=== PATIENT | female | born 1960 | race African-American/Black ===

== ENCOUNTER 2016-07-28 21:11 | Emergency (ER) | payer MEDICARE, OTHER ==
[2016-07-28] MEDS ORDERED: ASPIRIN 81 MG TABLET, CHEWABLE PO ONE (21:14)
[2016-07-28 21:51] LABS: PROTHROMBIN TIME 12.6 SEC (11.4-15.4)
[2016-07-28 21:56] LABS: ABSOLUTE EOSINOPHILS # (AUTO) 0.1 10^3/uL (0.0-0.6); ABSOLUTE LYMPHOCYTES (AUTO) 1.4 10^3/uL (0.5-4.7); ABSOLUTE MONOCYTES (AUTO) 0.3 10^3/uL (0.1-1.4); ABSOLUTE NEUT (AUTO) 1.8 10^3/uL (1.7-8.2); BASOPHILS % (AUTO) 0.3 % (0-2); EOSINOPHILS % (AUTO) 1.7 % (0-6); HEMATOCRIT 39.6 % (36.0-47.0); HEMOGLOBIN 13.2 g/dL (12.0-15.5); LYMPHOCYTES % (AUTO) 39.3 % (13-45); MEAN CORPUSCULAR HEMOGLOBIN 26.3 pg (27.0-33.4); MEAN CORPUSCULAR HGB CONC 33.4 g/dL (32.0-36.0); MEAN CORPUSCULAR VOLUME 79 fl (80-97); MONOCYTES % (AUTO) 8.5 % (3-13); RED BLOOD COUNT 5.02 10^6/uL (3.72-5.28); RED CELL DISTRIBUTION WIDTH 14.4 % (11.5-14.0); SEGMENTED NEUTROPHILS % (AUTO) 50.2 % (42-78); WHITE BLOOD COUNT 3.6 10^3/uL (4.0-10.5)
[2016-07-28 22:10] LABS: ALANINE AMINOTRANSFERASE 34 U/L (9-52); ALBUMIN 3.8 g/dL (3.5-5.0); ALKALINE PHOSPHATASE 58 U/L (38-126); ANION GAP 11 (5-19); ASPARTATE AMINO TRANSFERASE 25 U/L (14-36); BILIRUBIN,TOTAL 0.5 mg/dL (0.2-1.3); BLOOD UREA NITROGEN 10 mg/dL (7-20); CALCIUM 9.4 mg/dL (8.4-10.2); CARBON DIOXIDE 26 mmol/L (22-30); CHLORIDE 101 mmol/L (98-107); CREATINE KINASE 70 U/L (30-135); CREATININE RESULT 0.74 mg/dL (0.52-1.25); GLUCOSE 177 mg/dL (75-110); POTASSIUM 4.2 mmol/L (3.6-5.0); SODIUM 137.8 mmol/L (137-145); TOTAL PROTEIN 7.3 g/dL (6.3-8.2)
[2016-07-28 22:22] LABS: CREATINE KINASE MB 0.43 ng/mL (<4.55); TROPONIN I < 0.012 ng/mL
[2016-07-28 22:41] LABS: FREE T3 4.21 pg/mL (2.77-5.27)
[2016-07-28 22:55] LABS: THYROID STIMULATING HORMONE 5.45 uIU/mL (0.47-4.68)
--- NOTE | 2016-07-28 23:59 | ER Document Report ---
ED Cardiac - General Chief Complaint: Palpitations Stated Complaint: POSSIBLE HEART PALPITATIONS Time seen by provider: 23:57 Mode of Arrival: Stretcher Information source: Patient TRAVEL OUTSIDE OF THE [place] IN LAST 30 DAYS: No - HPI Patient complains to provider of: Palpitations Was the onset of pain: Sudden Is the pain a: Chronic problem Chest pain location: Substernal Quality of pain: Dull Severity now: None Severity at worst: Mild Chest pain precipitating factors: At Rest Cardiac risk factors: Diabetes, Hypertension Positive cardiac history: Yes Associated symptoms: Shortness of breath Exacerbated by: Denies Relieved by: Nothing Similar symptoms previously: Yes Recently seen / treated by doctor: Yes Notes: Patient is a 56-year-old female with history of hypertension, diabetes, pulmonary emboli, currently on pelvic rest, atrial fibrillation sleep apnea, history of thyroidectomy approximately 8 months ago, who presents to the emergency room complaining of palpitations with shortness of breath and chest heaviness that occurred just prior to arrival, states it lasted 20-30 minutes and went away prior to arrival in the emergency room, she reports generalized weakness associated with these symptoms, she does report having a history of these symptoms previously but generally the resolve within a few minutes and do not return, she denies missing any of her medications today, and is being followed by local spring assembler, states she has a follow-up appointment on the next month - Related Data Allergies/Adverse Reactions: codeine Adverse Reaction (Unknown, Verified 07/28/16 21:55) PALPITATIONS diazepam [From Valium] Adverse Reaction (Unknown, Verified 07/28/16 21:55) PALPITATIONS oxycodone [From Percocet] Adverse Reaction (Unknown, Verified 07/28/16 21:55) PALPITATIONS Home Medications: Current Home Medications Apixaban [Eliquis] 5 mg PO BID 07/28/16 [History] Calcium Carbonate [Calcium] 600 mg PO DAILY 07/28/16 [History] Cholecalciferol (Vitamin D3) [Vitamin D3] 1,000 unit PO DAILY 07/28/16 [History] Diltiazem HCl [Cardizem Cd 180 mg Capsule] 180 mg PO BID 07/28/16 [History] Glipizide 5 mg PO DAILY 07/28/16 [History] Lisinopril [Prinivil] 20 mg PO DAILY 07/28/16 [History] Metformin HCl 500 mg PO QPM 07/28/16 [History] Past Medical History - General Information source: Patient - Social History Smoking Status: Never Smoker Family History: Hypertension, Malignancy, Other - Past Medical History Cardiac Medical History: Reports: Hx Atrial Fibrillation, Hx Hypercholesterolemia, Hx Hypertension, Hx Pulmonary Embolism - Recent and remote Denies: Hx Congestive Heart Failure, Hx Coronary Artery Disease, Hx Heart Attack Pulmonary Medical History: Denies: Hx Asthma, Hx Bronchitis, Hx COPD, Hx Pneumonia, Hx Tuberculosis Neurological Medical History: Denies: Hx Cerebrovascular Accident, Hx Seizures Endocrine Medical History: Reports: Hx Diabetes Mellitus Type 2 Musculoskeltal Medical History: Denies Hx Arthritis Psychiatric Medical History: Denies: Hx Depression Past Surgical History: Reports: Hx Thyroid Surgery, Hx Tubal Ligation - Immunizations Hx Diphtheria, Pertussis, Tetanus Vaccination: Yes Review of Systems - Review of Systems Constitutional: No symptoms reported EENT: No symptoms reported Cardiovascular: See HPI Respiratory: Short of breath Gastrointestinal: No symptoms reported Genitourinary: No symptoms reported Female Genitourinary: No symptoms reported Musculoskeletal: No symptoms reported Skin: No symptoms reported Hematologic/Lymphatic: No symptoms reported Neurological/Psychological: No symptoms reported -: Yes All other systems reviewed and negative Physical Exam - Vital signs Vitals: Resp Pulse Ox 12 100 07/28/16 21:20 07/28/16 21:20 Interpretation: Normal - General General appearance: Appears well, Alert - HEENT Head: Normocephalic, Atraumatic Eyes: Normal Pupils: PERRL - Respiratory Respiratory status: No respiratory distress Chest status: Nontender Breath sounds: Normal Chest palpation: Normal - Cardiovascular Rhythm: Regular Heart sounds: Normal auscultation Murmur: No - Abdominal Inspection: Morbidly Obese Distension: No distension Bowel sounds: Normal Tenderness: Nontender Organomegaly: No organomegaly - Back Back: Normal, Nontender - Extremities General upper extremity: Normal inspection, Nontender, Normal color, Normal ROM , Normal temperature General lower extremity: Normal inspection, Nontender, Normal color, Normal ROM , Normal temperature. No: Mark's sign - Neurological Neuro grossly intact: Yes Cognition: Normal Orientation: AAOx4 Adrián Coma Scale Eye Opening: Spontaneous [place] Coma Scale Verbal: Oriented Adrián Coma Scale Motor: Obeys Commands [place] Coma Scale Total: 15 Speech: Normal Motor strength normal: LUE, RUE, LLE, RLE Sensory: Normal - Psychological Associated symptoms: Normal affect, Normal mood - Skin Skin Temperature: Warm Skin Moisture: Dry Skin Color: Normal Course - Re-evaluation Re-evalutation: 07/28/16 23:57 Patient resting comfortably, reports feeling much better, able to ambulate without difficulty, lab and imaging findings discussed with her at bedside, symptoms likely related to paroxysmal atrial fibrillation, she was advised to call her spring assembler in the next 1-2 days or return if symptoms worsen, patient acknowledges understanding and agreement with this plan - Vital Signs Vital signs: Temp Pulse Resp BP Pulse Ox 14 131/71 H 100 07/28/16 23:01 07/28/16 23:01 07/28/16 23:01 - Laboratory Result Diagrams: 07/28/16 21:34 07/28/16 21:34 Laboratory results interpreted by me: 07/28/16 07/28/16 07/28/16 21:34 21:34 21:34 WBC 3.6 L MCV 79 L MCH 26.3 L RDW 14.4 H Plt Count 148 L Glucose 177 H TSH 5.45 H - Diagnostic Test Radiology reviewed: Image reviewed, Reports reviewed - EKG Interpretation by Me EKG shows normal: Sinus rhythm Rate: Normal Rhythm: NSR Heart block present: 1st Degree When compared to previous EKG there are: No significant change Discharge - Discharge Clinical Impression: Palpitations Condition: Stable Disposition: HOME, SELF-CARE Instructions: Palpitations (Irregular or Rapid Heartrate) ([facility]) Additional Instructions: Follow up with your primary care provider and your spring assembler in one to 2 days. Return to the emergency room immediately if symptoms worsen or any additional concerns.
[2016-07-29 00:25] VITALS: BP 129/67
--- NOTE | 2016-07-29 17:41 | EKG REPORT ---
SEVERITY:- ABNORMAL ECG - SINUS RHYTHM FIRST DEGREE AV BLOCK : Confirmed by: Lupe White MD 29-Jul-2016 17:40:45
== END 2016-07-29 00:15 | disposition home or self-care (01) ==
LOC: ER 21:11
DX: R00.2 Palpitations (principal); I10 Essential (primary) hypertension; E66.01 Morbid (severe) obesity due to excess calories; E11.9 Type 2 diabetes mellitus without complications; I48.91 Unspecified atrial fibrillation; E78.00 Pure hypercholesterolemia, unspecified; Z86.711 Personal history of pulmonary embolism; Z98.51 Tubal ligation status
CPT/HCPCS: 93005; 99285; 36415; 84439; 82553; 82550; 84443; 85025; 85610; 80053; 84484; 84481; 71010; 93010; A9270

== ENCOUNTER 2016-09-05 10:28 | Emergency (ER) | payer MEDICARE ==
[2016-09-05 10:37] VITALS: BP 150/80
--- NOTE | 2016-09-05 11:10 | ER Document Report ---
ED Medical Screen (RME) - General Chief Complaint: Abdominal Problem Stated Complaint: STOMACH PAIN Notes: This 56-year-old diabetic patient on a for prior pulmonary embolus complaints of bleeding from her umbilicus that started yesterday. She also complains of generalized body aches. She does have a history of A. fib. Quick exam showed a blood-tinged purulence discharge from deep in the umbilicus with no obvious bleeding source. This was swabbed for cultures and again it appeared to be blood tinged discharge with no bright red blood. I have greeted and performed a rapid initial assessment of this patient. A comprehensive ED assessment and evaluation of the patient, analysis of test results and completion of the medical decision making process will be conducted by additional ED providers. TRAVEL OUTSIDE OF THE [place] IN LAST 30 DAYS: No - Related Data Allergies/Adverse Reactions: codeine Adverse Reaction (Unknown, Verified 09/05/16 10:32) PALPITATIONS diazepam [From Valium] Adverse Reaction (Unknown, Verified 09/05/16 10:32) PALPITATIONS oxycodone [From Percocet] Adverse Reaction (Unknown, Verified 09/05/16 10:32) PALPITATIONS Past Medical History - Past Medical History Cardiac Medical History: Reports: Hx Atrial Fibrillation, Hx Hypercholesterolemia, Hx Hypertension, Hx Pulmonary Embolism - Recent and remote Denies: Hx Congestive Heart Failure, Hx Coronary Artery Disease, Hx Heart Attack Pulmonary Medical History: Denies: Hx Asthma, Hx Bronchitis, Hx COPD, Hx Pneumonia, Hx Tuberculosis Neurological Medical History: Denies: Hx Cerebrovascular Accident, Hx Seizures Endocrine Medical History: Reports: Hx Diabetes Mellitus Type 2 Renal/ Medical History: Denies: Hx Peritoneal Dialysis Musculoskeltal Medical History: Denies Hx Arthritis Psychiatric Medical History: Denies: Hx Depression Past Surgical History: Reports: Hx Thyroid Surgery, Hx Tubal Ligation - Immunizations Hx Diphtheria, Pertussis, Tetanus Vaccination: Yes Physical Exam - Vital signs Vitals: Temp Pulse Resp BP Pulse Ox 97.9 F 81 18 150/80 H 100 09/05/16 10:33 09/05/16 10:33 09/05/16 10:09/05/16 10:09/05/16 10:33 Course - Vital Signs Vital signs: Temp Pulse Resp BP Pulse Ox 97.9 F 81 18 150/80 H 100 09/05/16 10:33 09/05/16 10:33 09/05/16 10:33 09/05/16 10:33 09/05/16 10:33
[2016-09-05 11:30] LABS: ABSOLUTE MONOCYTES (AUTO) 0.2 10^3/uL (0.1-1.4); ABSOLUTE NEUT (AUTO) 1.4 10^3/uL (1.7-8.2); BASOPHILS % (AUTO) 0.5 % (0-2); EOSINOPHILS % (AUTO) 1.3 % (0-6); HEMATOCRIT 39.9 % (36.0-47.0); HEMOGLOBIN 13.1 g/dL (12.0-15.5); HGB HCT DIFFERENCE -0.6; LYMPHOCYTES % (AUTO) 36.5 % (13-45); MEAN CORPUSCULAR HEMOGLOBIN 25.9 pg (27.0-33.4); MEAN CORPUSCULAR HGB CONC 32.7 g/dL (32.0-36.0); MEAN CORPUSCULAR VOLUME 79 fl (80-97); MONOCYTES % (AUTO) 8.5 % (3-13); RED BLOOD COUNT 5.03 10^6/uL (3.72-5.28); RED CELL DISTRIBUTION WIDTH 14.7 % (11.5-14.0); SEGMENTED NEUTROPHILS % (AUTO) 53.2 % (42-78); WHITE BLOOD COUNT 2.7 10^3/uL (4.0-10.5)
[2016-09-05 11:52] LABS: ALANINE AMINOTRANSFERASE 28 U/L (9-52); ALBUMIN 3.7 g/dL (3.5-5.0); ALKALINE PHOSPHATASE 58 U/L (38-126); ANION GAP 12 (5-19); ASPARTATE AMINO TRANSFERASE 18 U/L (14-36); BILIRUBIN,DIRECT 0.2 mg/dL (0.0-0.4); BILIRUBIN,TOTAL 0.6 mg/dL (0.2-1.3); BLOOD UREA NITROGEN 11 mg/dL (7-20); CALCIUM 9.3 mg/dL (8.4-10.2); CARBON DIOXIDE 27 mmol/L (22-30); CHLORIDE 101 mmol/L (98-107); CREATININE RESULT 0.69 mg/dL (0.52-1.25); GLUCOSE 254 mg/dL (75-110); POTASSIUM 4.3 mmol/L (3.6-5.0); SODIUM 140.2 mmol/L (137-145); TOTAL PROTEIN 7.3 g/dL (6.3-8.2)
--- NOTE | 2016-09-05 12:16 | ER Document Report ---
ED General - General Chief Complaint: Abdominal Problem Stated Complaint: STOMACH PAIN Mode of Arrival: Ambulatory Information source: Patient TRAVEL OUTSIDE OF THE [place] IN LAST 30 DAYS: No - HPI Onset: Yesterday Onset/Duration: Gradual Quality of pain: Dull Severity: Mild Associated symptoms: Weakness Exacerbated by: Denies Relieved by: Denies Similar symptoms previously: No Recently seen / treated by doctor: Yes - PCP THIS AM, REFERED TO E.R. - Related Data Allergies/Adverse Reactions: codeine Adverse Reaction (Unknown, Verified 09/05/16 10:32) PALPITATIONS diazepam [From Valium] Adverse Reaction (Unknown, Verified 09/05/16 10:32) PALPITATIONS oxycodone [From Percocet] Adverse Reaction (Unknown, Verified 09/05/16 10:32) PALPITATIONS Past Medical History - General Information source: Patient - Social History Smoking Status: Never Smoker Chew tobacco use (# tins/day): No Frequency of alcohol use: None Drug Abuse: None Lives with: Family Family History: Hypertension, Malignancy, Other Patient has suicidal ideation: No Patient has homicidal ideation: No - Past Medical History Cardiac Medical History: Reports: Hx Atrial Fibrillation, Hx Hypercholesterolemia, Hx Hypertension, Hx Pulmonary Embolism - Recent and remote Denies: Hx Congestive Heart Failure, Hx Coronary Artery Disease, Hx Heart Attack Pulmonary Medical History: Denies: Hx Asthma, Hx Bronchitis, Hx COPD, Hx Pneumonia, Hx Tuberculosis Neurological Medical History: Denies: Hx Cerebrovascular Accident, Hx Seizures Endocrine Medical History: Reports: Hx Diabetes Mellitus Type 2 Renal/ Medical History: Denies: Hx Peritoneal Dialysis Musculoskeltal Medical History: Denies Hx Arthritis Psychiatric Medical History: Denies: Hx Depression Past Surgical History: Reports: Hx Thyroid Surgery, Hx Tubal Ligation - Immunizations Hx Diphtheria, Pertussis, Tetanus Vaccination: Yes Review of Systems - Review of Systems Constitutional: Chills, Weakness. denies: Fever EENT: No symptoms reported Cardiovascular: No symptoms reported Respiratory: No symptoms reported Gastrointestinal: No symptoms reported Genitourinary: No symptoms reported Female Genitourinary: No symptoms reported Musculoskeletal: No symptoms reported Skin: See HPI Neurological/Psychological: No symptoms reported Physical Exam - Vital signs Vitals: Temp Pulse Resp BP Pulse Ox 97.9 F 81 18 150/80 H 100 09/05/16 10:33 09/05/16 10:33 09/05/16 10:33 09/05/16 10:33 09/05/16 10:33 Interpretation: Hypertensive. No: Tachycardic, Tachypneic - General General appearance: Appears well, Alert In distress: None - HEENT Head: Normocephalic Eyes: Normal Conjunctiva: Normal Ears: Normal Nasal: Normal Mouth/Lips: Normal Mucous membranes: Normal Pharynx: Normal Neck: Normal - Respiratory Respiratory status: No respiratory distress Breath sounds: Normal - Cardiovascular Rhythm: Regular Heart sounds: Normal auscultation Murmur: Yes - Abdominal Inspection: Morbidly Obese Bowel sounds: Normal Notes: MILD EDEMA & DRAINAGE FROM UMBILICUS. CLEANED GENTLY W/ COTTON SWAB & GAUZE WICK INSERTED, PATIENT INSTRUCTED RE: SELF-CARE @ HOME. - Extremities General upper extremity: Normal inspection General lower extremity: Normal inspection - Neurological Neuro grossly intact: Yes Cognition: Normal Orientation: AAOx4 - Psychological Associated symptoms: Normal affect, Normal mood - Skin Skin Temperature: Warm Skin Moisture: Dry Skin Color: Normal Skin Turgor: Elastic Skin irregularity: other - SEE "ABDOMEN" ABOVE Course - Vital Signs Vital signs: Temp Pulse Resp BP Pulse Ox 97.9 F 81 18 150/80 H 100 09/05/16 10:33 09/05/16 10:33 09/05/16 10:33 09/05/16 10:33 09/05/16 10:33 - Laboratory Result Diagrams: 09/05/16 11:15 09/05/16 11:15 Laboratory results interpreted by me: 09/05/16 09/05/16 11:15 11:15 WBC 2.7 L MCV 79 L MCH 25.9 L RDW 14.7 H Absolute Neutrophils 1.4 L Glucose 254 H Discharge - Discharge Clinical Impression: Umbilical discharge, Diabetes mellitus type 2 in obese Type 2 diabetes mellitus with hyperglycemia Qualifiers: Diabetes mellitus longterm insulin use: without 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 TAKE ANTIBIOTIC DIRECTED. CONTINUE OTHER MEDS BEFORE. FOLLOW UP WITH YOUR PRIMARY CARE PROVIDER IN 2 DAYS (SATURDAY, SEPTEMBER 07). RETURN TO E.R. IF PROBLEMS.
[2016-09-05] MEDS ORDERED: INSULIN REG, HUMAN 100 UNIT/ML 3 ML VIAL (PYX) SUBCUT ONE (12:26)
== END 2016-09-05 12:50 | disposition home or self-care (01) ==
LOC: ER 10:28
DX: R10.9 Unspecified abdominal pain (principal); E11.65 Type 2 diabetes mellitus with hyperglycemia; E66.01 Morbid (severe) obesity due to excess calories; R53.1 Weakness; I48.91 Unspecified atrial fibrillation; E78.00 Pure hypercholesterolemia, unspecified; I10 Essential (primary) hypertension; Z86.711 Personal history of pulmonary embolism; Z88.6 Allergy status to analgesic agent; Z98.51 Tubal ligation status
CPT/HCPCS: 36415; 80053; 82962; 85025; 87070; 87075; 87077; 87205; 99284

== ENCOUNTER → 2016-09-12 | Outpatient (CLI) | payer MEDICARE | LOC: WI 12:00 | PROVIDERS: ATTEND Family Medicine | DX: Z12.31 Encounter for screening mammogram for malignant neoplasm of breast (principal) | CPT/HCPCS: 77067; G0202 ==

== ENCOUNTER 2017-02-20 18:30 | Emergency (ER) | payer MEDICARE ==
[2017-02-20] MEDS ORDERED: ASPIRIN 81 MG TABLET, CHEWABLE PO ONE (18:34)
[2017-02-20 19:02] LABS: ABSOLUTE LYMPHOCYTES (AUTO) 1.3 10^3/uL (0.5-4.7); ABSOLUTE MONOCYTES (AUTO) 0.3 10^3/uL (0.1-1.4); ABSOLUTE NEUT (AUTO) 1.5 10^3/uL (1.7-8.2); BASOPHILS % (AUTO) 0.4 % (0-2); EOSINOPHILS % (AUTO) 1.3 % (0-6); HEMATOCRIT 38.8 % (36.0-47.0); HEMOGLOBIN 13.3 g/dL (12.0-15.5); HGB HCT DIFFERENCE 1.1; LYMPHOCYTES % (AUTO) 41.9 % (13-45); MEAN CORPUSCULAR HGB CONC 34.3 g/dL (32.0-36.0); MEAN CORPUSCULAR VOLUME 79 fl (80-97); MONOCYTES % (AUTO) 8.5 % (3-13); RED BLOOD COUNT 4.93 10^6/uL (3.72-5.28); RED CELL DISTRIBUTION WIDTH 15.2 % (11.5-14.0); SEGMENTED NEUTROPHILS % (AUTO) 47.9 % (42-78); WHITE BLOOD COUNT 3.1 10^3/uL (4.0-10.5)
[2017-02-20 19:21] LABS: ALANINE AMINOTRANSFERASE 25 U/L (9-52); ALBUMIN 3.7 g/dL (3.5-5.0); ALKALINE PHOSPHATASE 61 U/L (38-126); ANION GAP 11 (5-19); ASPARTATE AMINO TRANSFERASE 20 U/L (14-36); BILIRUBIN,DIRECT 0.3 mg/dL (0.0-0.4); BILIRUBIN,TOTAL 0.5 mg/dL (0.2-1.3); BLOOD UREA NITROGEN 14 mg/dL (7-20); CARBON DIOXIDE 24 mmol/L (22-30); CHLORIDE 103 mmol/L (98-107); CREATINE KINASE 62 U/L (30-135); CREATININE RESULT 0.73 mg/dL (0.52-1.25); GLUCOSE 179 mg/dL (75-110); POTASSIUM 4.1 mmol/L (3.6-5.0); SODIUM 137.6 mmol/L (137-145); TOTAL PROTEIN 7.2 g/dL (6.3-8.2)
--- NOTE | 2017-02-20 19:24 | RADIOLOGY REPORT (SQ) ---
EXAM DESCRIPTION: CHEST SINGLE VIEW COMPLETED DATE/TIME: 02/20/2017 7:15 pm REASON FOR STUDY: cp COMPARISON: 07/28/2016 EXAM PARAMETERS: NUMBER OF VIEWS: One view. TECHNIQUE: Single frontal radiographic view of the chest acquired. RADIATION DOSE: NA LIMITATIONS: None. FINDINGS: LUNGS AND PLEURA: No opacities, masses or pneumothorax. No pleural effusion. MEDIASTINUM AND HILAR STRUCTURES: No masses. Contour normal. HEART AND VASCULAR STRUCTURES: Heart normal in size. Normal vasculature. BONES: No acute findings. HARDWARE: None in the chest. OTHER: No other significant finding. IMPRESSION: NO ACUTE RADIOGRAPHIC FINDING IN THE CHEST. TECHNICAL DOCUMENTATION: JOB ID: [id number]
[2017-02-20 19:34] LABS: TROPONIN I < 0.012 ng/mL
--- NOTE | 2017-02-20 19:39 | ER Document Report ---
ED General - General Chief Complaint: Chest Pain Stated Complaint: CHEST PAIN Time Seen by Provider: 02/20/17 18:39 Notes: Patient is a 56-year-old patient with a past medical history of morbid obesity, hypertension, diabetes, prior pulmonary embolus who presents with 2 days of intermittent left-sided chest pain. Does describe it as an intermittent left- sided chest pressure without radiation into her arms, jaw or back. Patient reports that she has had a history of similar symptoms many times over the last several years and did have a cardiac catheterization 2 years ago for this at which time it was noted to be normal without any disease requiring stent placement. She also apparently recently had a 24-hour Holter monitor due to the symptoms. This was apparently unrevealing. At time of my assessment she denies any ongoing pain. States that she received nitroglycerin from EMS and believes that this helped the pain go away. Nothing triggers or worsens the pain when present. Denies any associated vomiting, diaphoresis or dyspnea. States this does feel somewhat like when she had a pulmonary embolus in the past. She is currently been off of her Eliquis for the past 2 weeks due to running out of this medication. TRAVEL OUTSIDE OF THE [place] IN LAST 30 DAYS: No - Related Data Allergies/Adverse Reactions: codeine Adverse Reaction (Unknown, Verified 09/05/16 10:32) PALPITATIONS diazepam [From Valium] Adverse Reaction (Unknown, Verified 09/05/16 10:32) PALPITATIONS oxycodone [From Percocet] Adverse Reaction (Unknown, Verified 09/05/16 10:32) PALPITATIONS Past Medical History - General Information source: Patient - Social History Smoking Status: Never Smoker Frequency of alcohol use: None Drug Abuse: None Lives with: Spouse/Significant other Family History: Hypertension, Malignancy, Other - Past Medical History Cardiac Medical History: Reports: Hx Atrial Fibrillation, Hx Hypercholesterolemia, Hx Hypertension, Hx Pulmonary Embolism - Recent and remote Denies: Hx Congestive Heart Failure, Hx Coronary Artery Disease, Hx Heart Attack Pulmonary Medical History: Denies: Hx Asthma, Hx Bronchitis, Hx COPD, Hx Pneumonia, Hx Tuberculosis Neurological Medical History: Denies: Hx Cerebrovascular Accident, Hx Seizures Endocrine Medical History: Reports: Hx Diabetes Mellitus Type 2 Renal/ Medical History: Denies: Hx Peritoneal Dialysis Musculoskeltal Medical History: Denies Hx Arthritis Psychiatric Medical History: Denies: Hx Depression Past Surgical History: Reports: Hx Thyroid Surgery, Hx Tubal Ligation - Immunizations Hx Diphtheria, Pertussis, Tetanus Vaccination: Yes Review of Systems - Review of Systems Notes: Constitutional: Negative for fever. HENT: Negative for sore throat. Eyes: Negative for visual changes. Cardiovascular: Positive for chest pain. Respiratory: Negative for shortness of breath. Gastrointestinal: Negative for abdominal pain, vomiting or diarrhea. Genitourinary: Negative for dysuria. Musculoskeletal: Negative for back pain. Skin: Negative for rash. Neurological: Negative for headaches, weakness or numbness. 10 point ROS negative except as marked above and in HPI. Physical Exam - Vital signs Vitals: Temp Pulse Resp BP Pulse Ox 97.8 F 74 17 150/80 H 98 02/20/17 18:40 02/20/17 18:40 02/20/17 18:40 02/20/17 18:40 02/20/17 18:40 Interpretation: Hypertensive Notes: PHYSICAL EXAMINATION: GENERAL: Well-appearing, well-nourished and in no acute distress. HEAD: Atraumatic, normocephalic. EYES: Pupils equal round and reactive to light, extraocular movements intact, sclera anicteric, conjunctiva are normal. ENT: nares patent, oropharynx clear without exudates. Moist mucous membranes. NECK: Normal range of motion, supple without lymphadenopathy LUNGS: Breath sounds clear to auscultation bilaterally and equal. No wheezes rales or rhonchi. HEART: Regular rate and rhythm without murmurs ABDOMEN: Soft, nontender, normoactive bowel sounds. No guarding, no rebound. No masses appreciated. EXTREMITIES: Normal range of motion, no pitting or edema. No cyanosis. NEUROLOGICAL: No focal neurological deficits. Moves all extremities spontaneously and on command. PSYCH: Normal mood, normal affect. SKIN: Warm, Dry, normal turgor, no rashes or lesions noted. Course - Re-evaluation Re-evalutation: 02/20/17 19:39 Presentation of chest pain in an otherwise well appearing patient. Low clinical suspicion for ACS given clinical history, exam, EKG without ST elevations or depressions, and negative initial troponin. However, given patient's multiple risk factors, I do believe she requires serial troponin assay testing. I am also concerned the patient could have a pulmonary embolus as the etiology of her presentation today. She does have a prior history of a pulmonary embolus and is currently supposed to be on apixaban. Unfortunately, she ran out of this medication approximately 2 weeks ago so has not been anticoagulated for that period of time. Her d-dimer did come back elevated at 0.89. She will therefore require a CTA of the chest. CXR without evidence of pneumothorax or pneumonia. No widened mediastinum. Aortic dissection also seems unlikely given history, symmetric pulses, CXR, and vitals. HEART Score: History:0 EC Age:1 Risk Factors:2 Troponin:0 Total: 3 02/20/17 23:44 Second troponin remains normal. CT of the chest is normal without any evidence of an acute pulmonary embolus or dissection. Patient has remained chest pain- free. I discussed with patient that, based on their age, risk factors and emergency department testing today, the likelihood that their symptoms are related to a heart attack is very low (estimated risk of heart attack or over the next 30 days of less than 1%). The patient demonstrates decision making capacity and has verbalized an understanding of these risks to me. Based on this, the patient has chosen to follow-up as an outpatient. Usual chest pain return precautions reviewed. The patient states understanding and agreement with this plan. - Vital Signs Vital signs: Temp Pulse Resp BP Pulse Ox 98 F 74 10 L 152/81 H 100 02/21/17 01:04 02/20/17 18:40 02/21/17 01:04 02/21/17 01:06 02/21/17 01:04 - Laboratory Result Diagrams: 02/20/17 18:40 02/20/17 18:40 Laboratory results interpreted by me: 02/20/17 02/20/17 02/20/17 18:40 18:40 18:40 WBC 3.1 L MCV 79 L RDW 15.2 H Absolute Neutrophils 1.5 L D-Dimer 0.89 H Glucose 179 H - Diagnostic Test Radiology reviewed: Image reviewed, Reports reviewed Radiology results interpreted by me: 02/20/17 19:41 Chest x-ray: No acute infiltrate or pneumothorax - EKG Interpretation by Me Additional EKG results interpreted by me: 02/20/17 19:41 Normal sinus rhythm. Rate 73. No ST elevations or depressions. QTC is 410. Discharge - Discharge Clinical Impression: Chest pain Qualifiers: Chest pain type: unspecified Qualified Code(s): R07.9 - Chest pain, unspecified Condition: Good Disposition: HOME, SELF-CARE Additional Instructions: You were seen today for chest pain. The exact cause of your pain is unclear. However, based on your cardiac enzyme testing, chest x-ray, and EKG it does not appear that it is from an immediately life-threatening cause at this time. Although your testing here is normal is critical that you follow-up with your primary care physician for continued evaluation of this chest pain and possible stress testing. I recommended you see your physician within the next 24-48 hours to be evaluated for consideration of a stress test. Please return to emergency department immediately if you have worsening of your chest pain, shortness of breath, vomiting, become unable to exert yourself due to pain or difficulty breathing, you pass out, or have any pain that radiates into your arms, jaw, or back. Please also return if you have any additional symptoms that are concerning to you. Prescriptions: Apixaban [Eliquis] 5 mg PO Q12 #20 tablet Referrals: ANAI POWERS MD [Primary Care Provider] - Follow up as needed WILDER FOSTER MD [ACTIVE STAFF] - Follow up tomorrow
--- NOTE | 2017-02-20 21:32 | RADIOLOGY REPORT (SQ) ---
EXAM DESCRIPTION: CTA CHEST COMPLETED DATE/TIME: 02/20/2017 9:22 pm REASON FOR STUDY: eval pe COMPARISON: None. TECHNIQUE: CT scan of the chest performed using helical scanning technique with dynamic intravenous contrast injection. Images reviewed with lung, soft tissue and bone windows. Reconstructed coronal and sagittal MPR images reviewed. Additional 3 dimensional post-processing performed to develop Maximal Intensity Projection images (IN P). All images stored on PACS. All CT scanners at this facility use dose modulation, iterative reconstruction, and/or weight based d osing when appropriate to reduce radiation dose to as low as reasonably achievable (ALARA). [facility]: Dose Right [facility]: CareDose [facility]: Dose Right [facility]: Teradose 4D [facility]: Schedule Savvy CONTRAST TYPE AND DOSE: contrast/concentration: Isovue 370.00 mg/ml; Total Contrast Delivered: 80.0 ml; Total Saline Delivered: 50.0 ml Contrast bolus adequate for pulmonary arteries and aorta. RENAL FUNCTION: GFR > 60. RADIATION DOSE: Up-to-date CT equipment and radiation dose reduction techniques were employed. CTDIv ol: 46.9 - 50.8 mGy. DLP: 1817 mGy-cm. . LIMITATIONS: None. FINDINGS: LUNGS AND PLEURA: No masses, infiltrates, pneumothorax. No pleural effusions, calcificati ons. AORTA AND GREAT VESSELS: No aneurysm. Contrast bolus not optimized for the aorta. HEART: No pericardial effusion. No significant coronary artery calcifications. PULMONARY ARTERIES: No emboli visualized in the main pulmonary arteries or the segmental branches. HILAR AND MEDIASTINAL STRUCTURES: No identified masses or abnormal nodes. HARDWARE: None in the chest. UPPER ABDOMEN: Gallstones. THYROID AND OTHER SOFT TISSUES: No masses. No adenopathy. BONES: No acute or significant finding. 3D MIPS: Confirm above findings. OTHER: No other significant finding. IMPRESSION: NORMAL CTA OF THE CHEST. NO PULMONARY EMBOLI. Gallstones. COMMENT: Quality ID # [id number]: Final reports with documentation of one or more dose reduction techniques (e.g., Automated exposure control, adjustment of the mA and/or kV according to patient size, use of iterative reconstruction technique) TECHNICAL DOCUMENTATION: JOB ID: [id number] [employer]- All Rights Reserved
[2017-02-20] MEDS ORDERED: APIXABAN 5 MG TABLET PO ONE (23:45)
[2017-02-21 01:25] VITALS: BP 152/81
--- NOTE | 2017-02-21 07:29 | EKG REPORT ---
SEVERITY:- BORDERLINE ECG - SINUS RHYTHM PROBABLE LEFT ATRIAL ABNORMALITY BORDERLINE R WAVE PROGRESSION, ANTERIOR LEADS : Confirmed by: Aquiles Sosa MD 21-Feb-2017 07:27:05
== END 2017-02-21 01:25 | disposition home or self-care (01) ==
LOC: ER 18:30
DX: R07.9 Chest pain, unspecified (principal); E66.01 Morbid (severe) obesity due to excess calories; I10 Essential (primary) hypertension; E11.9 Type 2 diabetes mellitus without complications
CPT/HCPCS: 93005; 99285; 36415; 82553; 82550; 85025; 80053; 84484; 85379; 71010; 71275; 93010; A9270

== ENCOUNTER 2017-03-07 06:13 | Emergency (ER) | payer MEDICARE ==
[2017-03-07] MEDS ORDERED: ASPIRIN 81 MG TABLET, CHEWABLE PO ONE (06:16)
[2017-03-07 07:21] LABS: PROTHROMBIN TIME 13.4 SEC (11.4-15.4)
[2017-03-07 07:24] LABS: ABSOLUTE EOSINOPHILS # (AUTO) 0.1 10^3/uL (0.0-0.6); ABSOLUTE MONOCYTES (AUTO) 0.2 10^3/uL (0.1-1.4); ABSOLUTE NEUT (AUTO) 1.7 10^3/uL (1.7-8.2); BASOPHILS % (AUTO) 0.7 % (0-2); EOSINOPHILS % (AUTO) 2.1 % (0-6); HEMATOCRIT 38.9 % (36.0-47.0); HEMOGLOBIN 13.4 g/dL (12.0-15.5); HGB HCT DIFFERENCE 1.3; LYMPHOCYTES % (AUTO) 32.5 % (13-45); MEAN CORPUSCULAR HEMOGLOBIN 27.4 pg (27.0-33.4); MEAN CORPUSCULAR HGB CONC 34.4 g/dL (32.0-36.0); MEAN CORPUSCULAR VOLUME 79 fl (80-97); MONOCYTES % (AUTO) 7.7 % (3-13); RED BLOOD COUNT 4.89 10^6/uL (3.72-5.28); RED CELL DISTRIBUTION WIDTH 15.1 % (11.5-14.0)
--- NOTE | 2017-03-07 07:29 | RADIOLOGY REPORT (SQ) ---
EXAM DESCRIPTION: CHEST SINGLE VIEW CLINICAL HISTORY: 56 years, Female, palpitations COMPARISON: Chest radiograph February 20, 2017. NUMBER OF VIEWS: 1 TECHNIQUE: 18 portable AP chest radiograph technique. LIMITATIONS: None. FINDINGS: Cardiac size and pulmonary vasculature are normal. Lungs are clear. No pleural effusions or pneumothorax on this single view. Bones appear intact on this single view. IMPRESSION: Normal portable AP chest radiograph. 2010 [facility] [employer]- All Rights Reserved
[2017-03-07 07:35] LABS: ALANINE AMINOTRANSFERASE 40 U/L (9-52); ALBUMIN 3.7 g/dL (3.5-5.0); ALKALINE PHOSPHATASE 63 U/L (38-126); ANION GAP 11 (5-19); ASPARTATE AMINO TRANSFERASE 28 U/L (14-36); BILIRUBIN,DIRECT 0.4 mg/dL (0.0-0.4); BILIRUBIN,TOTAL 0.5 mg/dL (0.2-1.3); BLOOD UREA NITROGEN 15 mg/dL (7-20); CALCIUM 9.4 mg/dL (8.4-10.2); CARBON DIOXIDE 23 mmol/L (22-30); CHLORIDE 107 mmol/L (98-107); CREATINE KINASE 54 U/L (30-135); CREATININE RESULT 0.73 mg/dL (0.52-1.25); GLUCOSE 176 mg/dL (75-110); POTASSIUM 4.2 mmol/L (3.6-5.0); SODIUM 141.1 mmol/L (137-145); TOTAL PROTEIN 7.3 g/dL (6.3-8.2)
[2017-03-07 07:44] LABS: CREATINE KINASE MB 0.52 ng/mL (<4.55)
[2017-03-07 07:48] LABS: TROPONIN I < 0.012 ng/mL
--- NOTE | 2017-03-07 08:07 | ER Document Report ---
ED Cardiac - General Chief Complaint: Palpitations Stated Complaint: SHORTNESS OF BREATH Time Seen by Provider: 03/07/17 07:42 Mode of Arrival: Medic Information source: Patient Notes: Patient is a 56-year-old female who presents to the ER today for heart palpitations and shortness of breath that woke her up from sleep today around 5: 30 AM. Patient has a history of atrial fibrillation and is on blood thinners, Eliquis for this. Patient states that she recently had to come to the emergency department because of this and had her medicine changed by her certified medicine aide. Patient has a cardiology appointment this afternoon in [place]. Patient denies any symptoms at this time or since she has arrived at the emergency department. She denied that she ever had chest pain. TRAVEL OUTSIDE OF THE [place] IN LAST 30 DAYS: No - Related Data Allergies/Adverse Reactions: codeine Adverse Reaction (Unknown, Verified 09/05/16 10:32) PALPITATIONS diazepam [From Valium] Adverse Reaction (Unknown, Verified 09/05/16 10:32) PALPITATIONS oxycodone [From Percocet] Adverse Reaction (Unknown, Verified 09/05/16 10:32) PALPITATIONS Past Medical History - General Information source: Patient - Social History Smoking Status: Unknown if Ever Smoked Family History: Hypertension, Malignancy, Other - Past Medical History Cardiac Medical History: Reports: Hx Atrial Fibrillation, Hx Hypercholesterolemia, Hx Hypertension, Hx Pulmonary Embolism - Recent and remote Denies: Hx Congestive Heart Failure, Hx Coronary Artery Disease, Hx Heart Attack Pulmonary Medical History: Denies: Hx Asthma, Hx Bronchitis, Hx COPD, Hx Pneumonia, Hx Tuberculosis Neurological Medical History: Denies: Hx Cerebrovascular Accident, Hx Seizures Endocrine Medical History: Reports: Hx Diabetes Mellitus Type 2 Renal/ Medical History: Denies: Hx Peritoneal Dialysis Musculoskeltal Medical History: Denies Hx Arthritis Psychiatric Medical History: Denies: Hx Depression Past Surgical History: Reports: Hx Thyroid Surgery, Hx Tubal Ligation - Immunizations Hx Diphtheria, Pertussis, Tetanus Vaccination: Yes Review of Systems - Review of Systems Constitutional: No symptoms reported EENT: No symptoms reported Cardiovascular: See HPI Respiratory: No symptoms reported Gastrointestinal: No symptoms reported Genitourinary: No symptoms reported Female Genitourinary: No symptoms reported Musculoskeletal: No symptoms reported Skin: No symptoms reported Hematologic/Lymphatic: No symptoms reported Neurological/Psychological: No symptoms reported Physical Exam - Vital signs Vitals: Temp Pulse Ox 98.1 F 98 03/07/17 06:27 03/07/17 06:27 - Notes Notes: PHYSICAL EXAMINATION: GENERAL: Well-appearing and in no acute distress. HEAD: Atraumatic, normocephalic. EYES: Pupils equal round and reactive to light, extraocular movements intact, sclera anicteric, conjunctiva are normal. NECK: Normal range of motion, supple without lymphadenopathy LUNGS: CTAB and equal. No wheezes rales or rhonchi. HEART: Regular rate and rhythm without murmurs EXTREMITIES: Normal range of motion, no pitting edema. No cyanosis. NEUROLOGICAL: Cranial nerves grossly intact. Normal sensory/motor exams. PSYCH: Normal mood, normal affect. SKIN: Warm, Dry, normal turgor, no rashes or lesions noted Course - Re-evaluation Re-evalutation: 03/07/17 Cardiac enzymes are normal today, chest x-ray reveals no acute pathology. color television console monitor has been on the entire time in the emergency department, rhythm strip from that has been reviewed entirely and she has not skipped any beats, had any arrhythmias here in the emergency department. Patient to follow-up with her certified medicine aide this afternoon at her scheduled appointment. I have low suspicion for pulmonary embolism as patient is not tachycardic or hypoxic, never having any chest pain. - Vital Signs Vital signs: Temp Pulse Resp BP Pulse Ox 98.1 F 17 136/90 H 100 03/07/17 06:27 03/07/17 08:01 03/07/17 08:01 03/07/17 08:00 - Laboratory Result Diagrams: 03/07/17 06:35 03/07/17 06:35 Laboratory results interpreted by me: 03/07/17 03/07/17 06:35 06:35 WBC 3.0 L MCV 79 L RDW 15.1 H Plt Count 135 L Glucose 176 H Discharge - Discharge Clinical Impression: Palpitations, History of atrial fibrillation Condition: Stable Disposition: HOME, SELF-CARE Additional Instructions: Return immediately for any new or worsening symptoms. Follow up with certified medicine aide, keep your appointment this afternoon. Referrals: MAKSIM CHENG MD [Primary Care Provider] - Follow up as needed
[2017-03-07 08:10] VITALS: BP 136/90
--- NOTE | 2017-03-07 09:14 | EKG REPORT ---
SEVERITY:- BORDERLINE ECG - SINUS RHYTHM PROBABLE LEFT ATRIAL ABNORMALITY : Confirmed by: Lupe White MD 07-Mar-2017 09:13:44
== END 2017-03-07 08:17 | disposition home or self-care (01) ==
LOC: ER 06:13
DX: R00.2 Palpitations (principal); I48.91 Unspecified atrial fibrillation; R06.02 Shortness of breath; E78.00 Pure hypercholesterolemia, unspecified; I10 Essential (primary) hypertension; E11.9 Type 2 diabetes mellitus without complications; Z86.711 Personal history of pulmonary embolism; Z79.02 Long term (current) use of antithrombotics/antiplatelets; Z98.51 Tubal ligation status
CPT/HCPCS: 93005; 99285; 36415; 82553; 82550; 85025; 85610; 85730; 80053; 84484; 83880; 71010; 93010; A9270

== ENCOUNTER 2017-03-27 07:32 | Emergency (ER) | payer MEDICARE ==
[2017-03-27] MEDS ORDERED: NORMAL SALINE 500 ML IV ONE ×2 (07:49→10:54)
[2017-03-27] MEDS ORDERED: MECLIZINE HCL 25 MG TABLET PO ONE (07:49)
--- NOTE | 2017-03-27 08:01 | ER Document Report ---
ED General - General Chief Complaint: Dizziness Stated Complaint: DIZZINESS Time Seen by Provider: 03/27/17 07:38 TRAVEL OUTSIDE OF THE U.[place] IN LAST 30 DAYS: No - HPI Patient complains to provider of: Dizziness Notes: Patient coming in complaining of dizziness today. Patient states dizziness is worse whenever she sits up. Patient states similar episodes in the past was given a medication and dizziness resolved. Patient has a history of atrial fibrillation as well. States compliance with her medications. Denies any headaches fevers chills nausea vomiting diarrhea denies any chest pain or abdominal pain. Patient upon arrival upon EMS was able to ambulate to the bathroom by herself and back to the stretcher. Without any assistance. Patient otherwise looks well no signs of obvious distress. - Related Data Allergies/Adverse Reactions: codeine Adverse Reaction (Unknown, Verified 09/05/16 10:32) PALPITATIONS diazepam [From Valium] Adverse Reaction (Unknown, Verified 09/05/16 10:32) PALPITATIONS oxycodone [From Percocet] Adverse Reaction (Unknown, Verified 09/05/16 10:32) PALPITATIONS Home Medications: Current Home Medications Diltiazem HCl [Cartia Xt] 180 mg PO BID 03/27/17 [History] Metformin HCl 500 mg PO DAILY 03/27/17 [History] Sotalol HCl [Sotalol Af] 120 mg PO BID 03/27/17 [History] Past Medical History - Social History Smoking Status: Unknown if Ever Smoked Family History: Hypertension, Malignancy, Other - Past Medical History Cardiac Medical History: Reports: Hx Atrial Fibrillation, Hx Hypercholesterolemia, Hx Hypertension, Hx Pulmonary Embolism - Recent and remote Denies: Hx Congestive Heart Failure, Hx Coronary Artery Disease, Hx Heart Attack Pulmonary Medical History: Denies: Hx Asthma, Hx Bronchitis, Hx COPD, Hx Pneumonia, Hx Tuberculosis Neurological Medical History: Denies: Hx Cerebrovascular Accident, Hx Seizures Endocrine Medical History: Reports: Hx Diabetes Mellitus Type 2 Renal/ Medical History: Denies: Hx Peritoneal Dialysis Musculoskeltal Medical History: Denies Hx Arthritis Psychiatric Medical History: Denies: Hx Depression Past Surgical History: Reports: Hx Thyroid Surgery, Hx Tubal Ligation - Immunizations Hx Diphtheria, Pertussis, Tetanus Vaccination: Yes Review of Systems - Review of Systems Constitutional: No symptoms reported EENT: No symptoms reported Cardiovascular: No symptoms reported Respiratory: No symptoms reported Gastrointestinal: No symptoms reported Genitourinary: No symptoms reported Female Genitourinary: No symptoms reported Musculoskeletal: No symptoms reported Skin: No symptoms reported Hematologic/Lymphatic: No symptoms reported Neurological/Psychological: Other - dizziness -: Yes All other systems reviewed and negative Physical Exam - Vital signs Vitals: Resp Pulse Ox 11 L 100 03/27/17 07:45 03/27/17 07:45 Interpretation: Normal - General General appearance: Appears well, Alert - HEENT Head: Normocephalic, Atraumatic Eyes: Normal Pupils: PERRL - Respiratory Respiratory status: No respiratory distress Chest status: Nontender Breath sounds: Normal Chest palpation: Normal - Cardiovascular Rhythm: Irregularly irregular Heart sounds: Normal auscultation Murmur: No - Abdominal Inspection: Morbidly Obese Distension: No distension Bowel sounds: Normal Tenderness: Nontender Organomegaly: No organomegaly - Back Back: Normal, Nontender - Extremities General upper extremity: Normal inspection, Nontender, Normal color, Normal ROM , Normal temperature General lower extremity: Normal inspection, Nontender, Normal color, Normal ROM , Normal temperature, Normal weight bearing. No: Mark's sign - Neurological Neuro grossly intact: Yes Cognition: Normal Orientation: AAOx4 Adrián Coma Scale Eye Opening: Spontaneous Adrián Coma Scale Verbal: Oriented Adrián Coma Scale Motor: Obeys Commands Adrián Coma Scale Total: 15 Speech: Normal Motor strength normal: LUE, RUE, LLE, RLE Sensory: Normal - Psychological Associated symptoms: Normal affect, Normal mood - Skin Skin Temperature: Warm Skin Moisture: Dry Skin Color: Normal Course - Re-evaluation Re-evalutation: 03/27/17 08:00 Patient otherwise has no acute findings on physical examination. We will check basic laboratory studies 03/27/17 13:24 Laboratory studies on shows signs of urinary tract infection. Otherwise patient feeling better after medications. Will be given a dose of Rocephin and sent home with Keflex discharge home. - Vital Signs Vital signs: Temp Pulse Resp BP Pulse Ox 97.7 F 57 L 18 175/70 H 100 03/27/17 12:55 03/27/17 12:55 03/27/17 12:55 03/27/17 12:55 03/27/17 12:55 - Laboratory Result Diagrams: 03/27/17 07:48 03/27/17 07:48 Laboratory results interpreted by me: 03/27/17 03/27/17 03/27/17 07:48 07:48 07:48 WBC 3.4 L RDW 14.7 H Absolute Neutrophils 1.6 L Glucose 155 H Urine Blood SMALL H Ur Leukocyte Esterase MODERATE H Discharge - Discharge Clinical Impression: Dizziness UTI (urinary tract infection) Qualifiers: Urinary tract infection type: site unspecified Hematuria presence: without hematuria Qualified Code(s): N39.0 - Urinary tract infection, site not specified Condition: Good Disposition: HOME, SELF-CARE Instructions: Cephalexin ([facility]), Dizziness ([facility]), Meclizine ([facility]), Urinary Tract Infection ([facility]) Additional Instructions: Please take medication as prescribed. Return to the ER if symptoms worsen. Follow-up with your primary care physician. Prescriptions: Cephalexin Monohydrate [Keflex 500 mg Capsule] 500 mg PO QID 7 Days #20 capsule Meclizine HCl [Antivert 25 mg Tablet] 25 mg PO TID PRN #21 tablet PRN Reason: Referrals: MAKSIM CHENG MD [Primary Care Provider] - Follow up as needed
[2017-03-27 08:10] LABS: ABSOLUTE EOSINOPHILS # (AUTO) 0.1 10^3/uL (0.0-0.6); ABSOLUTE LYMPHOCYTES (AUTO) 1.4 10^3/uL (0.5-4.7); ABSOLUTE MONOCYTES (AUTO) 0.3 10^3/uL (0.1-1.4); ABSOLUTE NEUT (AUTO) 1.6 10^3/uL (1.7-8.2); BASOPHILS % (AUTO) 0.8 % (0-2); EOSINOPHILS % (AUTO) 2.2 % (0-6); HEMATOCRIT 40.7 % (36.0-47.0); HEMOGLOBIN 13.8 g/dL (12.0-15.5); HGB HCT DIFFERENCE 0.7; LYMPHOCYTES % (AUTO) 41.2 % (13-45); MEAN CORPUSCULAR HEMOGLOBIN 27.1 pg (27.0-33.4); MEAN CORPUSCULAR VOLUME 80 fl (80-97); MONOCYTES % (AUTO) 8.2 % (3-13); RED CELL DISTRIBUTION WIDTH 14.7 % (11.5-14.0); SEGMENTED NEUTROPHILS % (AUTO) 47.6 % (42-78); WHITE BLOOD COUNT 3.4 10^3/uL (4.0-10.5)
[2017-03-27 08:15] LABS: APPEARANCE,URINE SLIGHTLY-CLOUDY; BILIRUBIN,URINE NEGATIVE (NEGATIVE); GLUCOSE, URINE NEGATIVE (NEGATIVE); KETONES,URINE NEGATIVE (NEGATIVE); LEUKOCYTE ESTERASE,URINE MODERATE (NEGATIVE); NITRITE,URINE NEGATIVE (NEGATIVE); PROTEIN,URINE NEGATIVE (NEGATIVE); URINE SPECIFIC GRAVITY 1.012; UROBILINOGEN,URINE NEGATIVE mg/dL (<2.0)
[2017-03-27 08:25] LABS: ANION GAP 10 (5-19); BLOOD UREA NITROGEN 11 mg/dL (7-20); CARBON DIOXIDE 28 mmol/L (22-30); CHLORIDE 105 mmol/L (98-107); CREATININE RESULT 0.78 mg/dL (0.52-1.25); GLUCOSE 155 mg/dL (75-110); MAGNESIUM 1.8 mg/dL (1.6-2.3); POTASSIUM 4.2 mmol/L (3.6-5.0); SODIUM 143.3 mmol/L (137-145)
--- NOTE | 2017-03-27 10:08 | RADIOLOGY REPORT (SQ) ---
EXAM DESCRIPTION: CT HEAD WITHOUT COMPLETED DATE/TIME: 03/27/2017 9:53 am REASON FOR STUDY: dizziness on eliquis COMPARISON: None. TECHNIQUE: Axial images acquired through the brain without intravenous contrast. Images reviewed wi th bone, brain and subdural windows. Images stored on PACS. All CT scanners at this facility use dose modulation, iterative reconstruction, and/or weight based d osing when appropriate to reduce radiation dose to as low as reasonably achievable (ALARA). [facility]: Dose Right [facility]: CareDose [facility]: Dose Right [facility]: Teradose 4D [facility]: Smart [employer] RADIATION DOSE: Up-to-date CT equipment and radiation dose reduction techniques were employed. CTDIv ol: 64.6 mGy. DLP: 1163 mGy-cm. mGy. LIMITATIONS: None. FINDINGS: VENTRICLES: Normal size and contour. CEREBRUM: No masses. No hemorrhage. No midline shift. No evidence for acute infarction. Normal gra y/white matter differentiation. No areas of low density in the white matter. CEREBELLUM: No masses. No hemorrhage. No alteration of density. No evidence for acute infarction. EXTRAAXIAL SPACES: No fluid collections. No masses. ORBITS AND GLOBE: No intra- or extraconal masses. Normal contour of globe without masses. CALVARIUM: No fracture. PARANASAL SINUSES: No fluid or mucosal thickening. SOFT TISSUES: No mass or hematoma. OTHER: No other significant finding. IMPRESSION: NORMAL BRAIN CT WITHOUT CONTRAST. EVIDENCE OF ACUTE STROKE: NO. COMMENT: Quality ID # [id number]: Final reports with documentation of one or more dose reduction techniques (e.g., Automated exposure control, adjustment of the mA and/or kV according to patient size, use of iterative reconstruction technique) TECHNICAL DOCUMENTATION: JOB ID: [id number]- All Rights Reserved
[2017-03-27] MEDS ORDERED: CEFTRIAXONE 1 GM/D5W RTU 1 GM/50 ML RTUPB IV ONE (10:54)
[2017-03-27] MEDS ORDERED: PROCHLORPERAZINE EDISYLATE INJ 10 MG/2 ML VIAL IV ONE (10:54)
[2017-03-27 12:56] VITALS: BP 175/70
--- NOTE | 2017-03-27 23:14 | EKG REPORT ---
SEVERITY:- BORDERLINE ECG - SINUS RHYTHM BORDERLINE R WAVE PROGRESSION, ANTERIOR LEADS : Confirmed by: Roger Willams 27-Mar-2017 23:14:27
== END 2017-03-27 12:57 | disposition home or self-care (01) ==
LOC: ER 07:32
DX: R42 Dizziness and giddiness (principal); N39.0 Urinary tract infection, site not specified; I48.91 Unspecified atrial fibrillation; E78.00 Pure hypercholesterolemia, unspecified; I10 Essential (primary) hypertension; E11.9 Type 2 diabetes mellitus without complications; Z88.6 Allergy status to analgesic agent; Z98.51 Tubal ligation status
CPT/HCPCS: 93005; 99285; 96361; 96375; 96365; 36415; 87086; 83735; 85025; 80048; 81001; 84484; 70450; 93010; A9270; J0780; J7040; J0696

== ENCOUNTER 2017-05-11 06:31 | Emergency (ER) | payer MEDICARE ==
[2017-05-11] MEDS ORDERED: ASPIRIN 81 MG TABLET, CHEWABLE PO ONE (06:38)
[2017-05-11] MEDS ORDERED: FUROSEMIDE INJ/PF 20 MG/2 ML SDV IV ONE (06:39)
[2017-05-11] MEDS ORDERED: METOPROLOL SUCCINATE 50 MG TAB.SR.24H PO ONE (06:43)
--- NOTE | 2017-05-11 06:49 | ER Document Report ---
ED Respiratory Problem - General Chief Complaint: Shortness Of Breath Stated Complaint: HEART RACING Time Seen by Provider: 05/11/17 06:37 TRAVEL OUTSIDE OF THE [place] IN LAST 30 DAYS: No - HPI Notes: 56 years old female presents today with nearly 2 day history of on and off rapid heartbeat and slow heartbeat. With a history of atrial fibrillation. Denies any chest pain denies any left arm numbness tingling sensation denies any nausea or vomiting. Denies any fever chills or other constitutional symptoms. - Related Data Allergies/Adverse Reactions: codeine Adverse Reaction (Unknown, Verified 09/05/16 10:32) PALPITATIONS diazepam [From Valium] Adverse Reaction (Unknown, Verified 09/05/16 10:32) PALPITATIONS oxycodone [From Percocet] Adverse Reaction (Unknown, Verified 09/05/16 10:32) PALPITATIONS Past Medical History - General Information source: Patient - Social History Smoking Status: Never Smoker Family History: Hypertension, Malignancy, Other - Past Medical History Cardiac Medical History: Reports: Hx Atrial Fibrillation, Hx Hypercholesterolemia, Hx Hypertension, Hx Pulmonary Embolism - Recent and remote Denies: Hx Congestive Heart Failure, Hx Coronary Artery Disease, Hx Heart Attack Pulmonary Medical History: Denies: Hx Asthma, Hx Bronchitis, Hx COPD, Hx Pneumonia, Hx Tuberculosis Neurological Medical History: Denies: Hx Cerebrovascular Accident, Hx Seizures Endocrine Medical History: Reports: Hx Diabetes Mellitus Type 2 Renal/ Medical History: Denies: Hx Peritoneal Dialysis Musculoskeltal Medical History: Denies Hx Arthritis Psychiatric Medical History: Denies: Hx Depression Past Surgical History: Reports: Hx Thyroid Surgery, Hx Tubal Ligation - Immunizations Hx Diphtheria, Pertussis, Tetanus Vaccination: Yes Review of Systems - Review of Systems Notes: REVIEW OF SYSTEMS: CONSTITUTIONAL : Denies fever, chills, or sweats. Denies recent illness. EENT: Denies eye, ear, throat, or mouth pain or symptoms. Denies nasal or sinus congestion or discharge. Denies throat, tongue, or mouth swelling or difficulty swallowing. CARDIOVASCULAR: Denies chest pain. Denies palpitations or racing or irregular heart beat. Denies ankle edema. RESPIRATORY: As per history of complaining GASTROINTESTINAL: Denies abdominal pain or distention. Denies nausea, vomiting , or diarrhea. Denies blood in vomitus, stools, or per rectum. Denies black, tarry stools. Denies constipation. GENITOURINARY: Denies difficulty urinating, painful urination, burning, frequency, blood in urine, or discharge. MUSCULOSKELETAL: Denies back or neck pain or stiffness. Denies joint pain or swelling. SKIN: Denies rash, lesions or sores. HEMATOLOGIC : Denies easy bruising or bleeding. LYMPHATIC: Denies swollen, enlarged glands. NEUROLOGICAL: Denies confusion or altered mental status. Denies passing out or loss of consciousness. Denies dizziness or lightheadedness. Denies headache. Denies weakness or paralysis or loss of use of either side. Denies problems with gait or speech. Denies sensory loss, numbness, or tingling. Denies seizures. PSYCHIATRIC: Denies anxiety or stress. Denies depression, suicidal ideation, or homicidal ideation. ALL OTHER SYSTEMS REVIEWED AND NEGATIVE. Dictation was performed using [employer] voice recognition software PHYSICAL EXAMINATION: GENERAL: Well-appearing, well-nourished and in no acute distress. Morbidly obese HEAD: Atraumatic, normocephalic. EYES: Pupils equal round and reactive to light, extraocular movements intact, sclera anicteric, conjunctiva are normal. ENT: Nares patent, oropharynx clear without exudates. Moist mucous membranes. NECK: Normal range of motion, supple without lymphadenopathy LUNGS: Bilaterally decreased breath sounds in the bases, and rales over the lower one third of the lung field. No other adventitial sounds heard. Percussion there is no dullness. HEART: Regular rate and rhythm without murmurs ABDOMEN: Soft, nontender, nondistended abdomen. No guarding, no rebound. No masses appreciated. Musculoskeletal: Normal range of motion, 1-2+ pitting or edema. No cyanosis. NEUROLOGICAL: Cranial nerves grossly intact. Normal speech, normal gait. Normal sensory, motor exams PSYCH: Normal mood, normal affect. SKIN: Warm, Dry, normal turgor, no rashes or lesions noted. -: Yes ROS unobtainable due to patient's medical condition Physical Exam - Vital signs Vitals: Resp Pulse Ox 17 100 05/11/17 06:38 05/11/17 06:38 Course - Re-evaluation Re-evalutation: 05/11/17 08:47 Patient was reevaluated, she feels much better, happy to go home. She was told to go home and rest, he denies any further discomfort all difficulty in breathing or chest pain she has been asked to come back immediately. 05/11/17 08:48 . I have reevaluated this patient multiple times and no significant life threatening changes are noted. The patient and I have discussed the diagnosis and risks, and we agree with discharging home with close follow-up. We also discussed returning to the Emergency Department immediately if new or worsening symptoms occur. We have discussed the symptoms which are most concerning (e.g., bloody sputum, worsening pain or shortness of breath) that necessitate immediate return. - Vital Signs Vital signs: Temp Pulse Resp BP Pulse Ox 12 164/72 H 99 05/11/17 08:10 05/11/17 08:10 05/11/17 08:10 - Laboratory Result Diagrams: 05/11/17 06:58 05/11/17 06:58 Laboratory results interpreted by me: 05/11/17 05/11/17 06:58 06:58 WBC 2.9 L RBC 5.29 H MCV 79 L MCH 26.7 L RDW 14.6 H Plt Count 146 L Absolute Neutrophils 1.4 L Glucose 162 H - Diagnostic Test Radiology results interpreted by me: 05/11/17 08:47 Chest x-ray report was reviewed no significant finding - EKG Interpretation by Me Rhythm: NSR - Sinus rhythm at the rate of 55 bpm normal axis, no acute ST elevation ST depression and T-wave inversion noted. Voltage: Increased voltage - Sinus tach at the rate of 117 bpm, normal axis, no acute ST elevation ST depression T-wave changes noted except T-wave inversion in V6. Discharge - Discharge Clinical Impression: Palpitation Disposition: HOME, SELF-CARE Instructions: Palpitations (Irregular or Rapid Heartrate) ([facility]) Referrals: MAKSIM CHENG MD [Primary Care Provider] - Follow up as needed
[2017-05-11 07:12] LABS: ABSOLUTE EOSINOPHILS # (AUTO) 0.1 10^3/uL (0.0-0.6); ABSOLUTE LYMPHOCYTES (AUTO) 1.2 10^3/uL (0.5-4.7); ABSOLUTE MONOCYTES (AUTO) 0.3 10^3/uL (0.1-1.4); ABSOLUTE NEUT (AUTO) 1.4 10^3/uL (1.7-8.2); BASOPHILS % (AUTO) 1.3 % (0-2); EOSINOPHILS % (AUTO) 1.8 % (0-6); HEMATOCRIT 41.9 % (36.0-47.0); HEMOGLOBIN 14.1 g/dL (12.0-15.5); HGB HCT DIFFERENCE 0.4; LYMPHOCYTES % (AUTO) 40.5 % (13-45); MEAN CORPUSCULAR HEMOGLOBIN 26.7 pg (27.0-33.4); MEAN CORPUSCULAR HGB CONC 33.7 g/dL (32.0-36.0); MEAN CORPUSCULAR VOLUME 79 fl (80-97); MONOCYTES % (AUTO) 8.9 % (3-13); RED BLOOD COUNT 5.29 10^6/uL (3.72-5.28); RED CELL DISTRIBUTION WIDTH 14.6 % (11.5-14.0); SEGMENTED NEUTROPHILS % (AUTO) 47.5 % (42-78); WHITE BLOOD COUNT 2.9 10^3/uL (4.0-10.5)
--- NOTE | 2017-05-11 07:22 | RADIOLOGY REPORT (SQ) ---
EXAM DESCRIPTION: CHEST SINGLE VIEW CLINICAL HISTORY: 56 years, Female, Shortness of breath COMPARISON: March 07, 2017 NUMBER OF VIEWS: One TECHNIQUE: Frontal LIMITATIONS: None. FINDINGS: Adequate lung volumes, clear parenchyma, normal cardiac silhouette size, mild osteoarthritis. IMPRESSION: No acute cardiopulmonary findings. 2011 [employer]- All Rights Reserved
[2017-05-11 07:33] LABS: ALANINE AMINOTRANSFERASE 27 U/L (9-52); ALBUMIN 3.8 g/dL (3.5-5.0); ALKALINE PHOSPHATASE 54 U/L (38-126); ANION GAP 16 (5-19); ASPARTATE AMINO TRANSFERASE 21 U/L (14-36); BILIRUBIN,DIRECT 0.4 mg/dL (0.0-0.4); BILIRUBIN,TOTAL 0.7 mg/dL (0.2-1.3); BLOOD UREA NITROGEN 14 mg/dL (7-20); CARBON DIOXIDE 22 mmol/L (22-30); CHLORIDE 106 mmol/L (98-107); CREATINE KINASE 44 U/L (30-135); CREATININE RESULT 0.72 mg/dL (0.52-1.25); GLUCOSE 162 mg/dL (75-110); POTASSIUM 4.2 mmol/L (3.6-5.0); TOTAL PROTEIN 7.5 g/dL (6.3-8.2)
[2017-05-11 07:45] LABS: CREATINE KINASE MB 0.26 ng/mL (<4.55)
[2017-05-11 07:48] LABS: TROPONIN I < 0.012 ng/mL
--- NOTE | 2017-05-11 07:57 | EKG REPORT ---
SEVERITY:- NORMAL ECG - SINUS RHYTHM : Confirmed by: Roger Willams 11-May-2017 07:57:06
[2017-05-11 09:04] VITALS: BP 137/76
== END 2017-05-11 09:04 | disposition home or self-care (01) ==
LOC: ER 06:31
DX: R00.2 Palpitations (principal); R00.0 Tachycardia, unspecified; I10 Essential (primary) hypertension; E11.9 Type 2 diabetes mellitus without complications; E66.01 Morbid (severe) obesity due to excess calories; R09.89 Other specified symptoms and signs involving the circulatory and respiratory systems
CPT/HCPCS: 93005; 99285; 36415; 82553; 82550; 85025; 80053; 84484; 83880; 71010; 93010; A9270

== ENCOUNTER 2017-10-08 18:29 | Emergency (ER) | payer MEDICARE ==
[2017-10-08] MEDS ORDERED: ASPIRIN 81 MG TABLET, CHEWABLE PO ONE (18:31)
[2017-10-08 18:44] LABS: ABSOLUTE EOSINOPHILS # (AUTO) 0.1 10^3/uL (0.0-0.6); ABSOLUTE LYMPHOCYTES (AUTO) 1.9 10^3/uL (0.5-4.7); ABSOLUTE MONOCYTES (AUTO) 0.3 10^3/uL (0.1-1.4); ABSOLUTE NEUT (AUTO) 1.4 10^3/uL (1.7-8.2); BASOPHILS % (AUTO) 0.8 % (0-2); EOSINOPHILS % (AUTO) 1.8 % (0-6); HEMATOCRIT 42.3 % (36.0-47.0); LYMPHOCYTES % (AUTO) 51.4 % (13-45); MEAN CORPUSCULAR HGB CONC 33.1 g/dL (32.0-36.0); MEAN CORPUSCULAR VOLUME 82 fl (80-97); PLATELET COUNT 177 10^3/uL (150-450); RED BLOOD COUNT 5.18 10^6/uL (3.72-5.28); RED CELL DISTRIBUTION WIDTH 14.6 % (11.5-14.0); TOTAL CELLS COUNTED % (AUTO) 100 %; WHITE BLOOD COUNT 3.7 10^3/uL (4.0-10.5)
--- NOTE | 2017-10-08 18:55 | RADIOLOGY REPORT (SQ) ---
EXAM DESCRIPTION: CHEST SINGLE VIEW COMPLETED DATE/TIME: 10/08/2017 6:46 pm REASON FOR STUDY: cp COMPARISON: 05/11/2017 EXAM PARAMETERS: NUMBER OF VIEWS: One view. TECHNIQUE: Single frontal radiographic view of the chest acquired. RADIATION DOSE: NA LIMITATIONS: None. FINDINGS: LUNGS AND PLEURA: No opacities, masses or pneumothorax. No pleural effusion. MEDIASTINUM AND HILAR STRUCTURES: No masses. Contour normal. HEART AND VASCULAR STRUCTURES: Heart normal in size. Normal vasculature. BONES: No acute findings. HARDWARE: None in the chest. OTHER: No other significant finding. IMPRESSION: NO ACUTE RADIOGRAPHIC FINDING IN THE CHEST. TECHNICAL DOCUMENTATION: JOB ID: [id number] [employer]- All Rights Reserved Reading location - IP/workstation name: [email or web address]
[2017-10-08 19:05] LABS: ALANINE AMINOTRANSFERASE 21 U/L (9-52); ALBUMIN 4.3 g/dL (3.5-5.0); ALKALINE PHOSPHATASE 56 U/L (38-126); ANION GAP 12 (5-19); ASPARTATE AMINO TRANSFERASE 19 U/L (14-36); BILIRUBIN,DIRECT 0.2 mg/dL (0.0-0.4); BILIRUBIN,TOTAL 0.4 mg/dL (0.2-1.3); BLOOD UREA NITROGEN 13 mg/dL (7-20); CALCIUM 9.7 mg/dL (8.4-10.2); CARBON DIOXIDE 28 mmol/L (22-30); CHLORIDE 103 mmol/L (98-107); CREATINE KINASE 69 U/L (30-135); GLUCOSE 128 mg/dL (75-110); POTASSIUM 4.3 mmol/L (3.6-5.0); SODIUM 143.1 mmol/L (137-145); TOTAL PROTEIN 8.2 g/dL (6.3-8.2)
[2017-10-08 19:16] LABS: CREATINE KINASE MB 0.45 ng/mL (<4.55)
[2017-10-08 19:17] LABS: TROPONIN I < 0.012 ng/mL
--- NOTE | 2017-10-08 19:29 | EKG REPORT ---
SEVERITY:- NORMAL ECG - SINUS RHYTHM : Confirmed by: Aquiles Sosa MD 08-Oct-2017 19:28:48
--- NOTE | 2017-10-08 20:03 | ER Document Report ---
ED Cardiac - General Chief Complaint: Chest Pain > 30 Stated Complaint: DIFFICULTY BREATHING Time Seen by Provider: 10/08/17 19:28 Notes: Patient is a 57-year-old female who presents to the emergency department via EMS for complaints of heart racing. Patient reports that around 5:45 PM she had a sudden sharp pain in the left side of her head which resolved on its own within a few minutes. Patient states that she sat down and began having a feeling of heart racing in her chest and states that she felt like she was going to pass out. Patient reports that she had associated shortness of breath and right arm pain with nausea. Patient reports that her heart rate at home was 138. Currently patient denies any chest pain but states that she feels a little winded and short of breath and has aching in her right arm. Patient's spoke up during exam and asked if it is normal for her to have slurred speech. Patient now reports that she has had intermittent episodes of slurred speech for the last few months and that she had one at the time of onset of her headache today. Patient and spouse report that the slurred speech typically only lasts a few minutes and resolves on its own. Patient is a patient of Dr. Cheng and states that she is seen by Dr. Santiago cardiology. Patient reports past medical history of A. fib, pulmonary embolisms and SVT. Patient reports that she has had a past surgical history of partial thyroidectomy and a tubal ligation. TRAVEL OUTSIDE OF THE [place] IN LAST 30 DAYS: No - Related Data Allergies/Adverse Reactions: codeine Adverse Reaction (Unknown, Verified 09/05/16 10:32) PALPITATIONS diazepam [From Valium] Adverse Reaction (Unknown, Verified 09/05/16 10:32) PALPITATIONS oxycodone [From Percocet] Adverse Reaction (Unknown, Verified 09/05/16 10:32) PALPITATIONS Past Medical History - General Information source: Patient - Social History Smoking Status: Never Smoker Chew tobacco use (# tins/day): No Frequency of alcohol use: None Drug Abuse: None Lives with: Family Family History: Hypertension, Malignancy, Other Patient has suicidal ideation: No Patient has homicidal ideation: No - Past Medical History Cardiac Medical History: Reports: Hx Atrial Fibrillation, Hx Hypercholesterolemia, Hx Hypertension, Hx Pulmonary Embolism - Recent and remote Denies: Hx Congestive Heart Failure, Hx Coronary Artery Disease, Hx Heart Attack Pulmonary Medical History: Denies: Hx Asthma, Hx Bronchitis, Hx COPD, Hx Pneumonia, Hx Tuberculosis Neurological Medical History: Denies: Hx Cerebrovascular Accident, Hx Seizures Endocrine Medical History: Reports: Hx Diabetes Mellitus Type 2 Renal/ Medical History: Denies: Hx Peritoneal Dialysis Musculoskeltal Medical History: Denies Hx Arthritis Psychiatric Medical History: Denies: Hx Depression Past Surgical History: Reports: Hx Thyroid Surgery, Hx Tubal Ligation - Immunizations Hx Diphtheria, Pertussis, Tetanus Vaccination: Yes Review of Systems - Review of Systems Constitutional: See HPI EENT: No symptoms reported Cardiovascular: See HPI Respiratory: See HPI Gastrointestinal: No symptoms reported Genitourinary: No symptoms reported Female Genitourinary: No symptoms reported Musculoskeletal: No symptoms reported Skin: No symptoms reported Hematologic/Lymphatic: No symptoms reported Neurological/Psychological: See HPI Physical Exam - Vital signs Vitals: Pulse Ox 100 10/08/17 18:31 - Notes Notes: PHYSICAL EXAMINATION: GENERAL: Well-appearing, well-nourished and in no acute distress. HEAD: Atraumatic, normocephalic. EYES: Pupils equal round and reactive to light, extraocular movements intact, conjunctiva are normal. ENT: Nares patent, oropharynx clear without exudates. Moist mucous membranes. NECK: Normal range of motion, supple without lymphadenopathy LUNGS: Breath sounds clear to auscultation bilaterally and equal. No wheezes rales or rhonchi. HEART: Regular rate and rhythm without murmurs ABDOMEN: Soft, nontender, nondistended abdomen. No guarding, no rebound. No masses appreciated. Female : deferred Musculoskeletal: Normal range of motion, mild non-pitting edema to bilateral lower extremities. No cyanosis. NEUROLOGICAL: Cranial nerves grossly intact. Normal speech. Normal sensory, motor exams PSYCH: Normal mood, normal affect. SKIN: Warm, Dry, normal turgor, no rashes or lesions noted. Course - Re-evaluation Re-evalutation: On initial exam, patient's only complaint is mild shortness of breath. Patient reports that chest pain and headache have resolved. Initial cardiac workup workup is remarkable. Chest x-ray with no acute findings. EKG reveals normal sinus rhythm with no ST segment deviation. CAT scan of the head is negative. BNP is unremarkable. Patient agrees to stay and have second troponin drawn. Patient has remained normotensive and has not had any episodes of tachycardia while in the department. Second troponin is also negative. Patient's heart score is a 2. Patient states that she feels well and that all of her symptoms have resolved. Consulted Dr. Wyatt who agrees that patient can be discharged. Patient will be following up with both Dr. Willams and Dr. Cheng this week. - Vital Signs Vital signs: Temp Pulse Resp BP Pulse Ox 14 153/86 H 99 10/08/17 23:00 10/08/17 21:01 10/08/17 23:00 - Laboratory Result Diagrams: 10/08/17 18:13 10/08/17 18:13 Laboratory results interpreted by me: 10/08/17 10/08/17 18:13 18:13 WBC 3.7 L RDW 14.6 H Seg Neutrophils % 37.0 L Lymphocytes % 51.4 H Absolute Neutrophils 1.4 L Glucose 128 H Discharge - Discharge Clinical Impression: Shortness of breath Chest pain Qualifiers: Chest pain type: unspecified Qualified Code(s): R07.9 - Chest pain, unspecified Headache Qualifiers: Headache type: unspecified Headache chronicity pattern: episodic headache Intractability: not intractable Qualified Code(s): R51 - Headache Condition: Stable Disposition: HOME, SELF-CARE Additional Instructions: Chest Pain of Unclear Cause The exact cause of your chest pain isn't clear. Fortunately, there is no evidence of a dangerous medical condition. Further testing may be required to find the source of the pain. Most often, we find that this pain is coming from the chest wall -- the muscles or rib joints in the chest. But chest pain can come from the lung and lung lining, the esophagus, the heart valves or heart lining, and even the stomach or gallbladder. Rest. Eat lightly until the pain is gone. We may prescribe medicine for pain and inflammation. You should call the physician immediately if the pain radiates to the shoulder, jaw or arms; if you start to run a fever or develop a cough; or if you develop shortness of breath, or other new or alarming symptoms. Your workup today was normal. Your lab work did not show any signs of any heart attack or cardiac event. Your EKG was normal and well we had you on the monitor you did not have any episodes of tachycardia. It is very important that you continue to take your Eliquis every day as directed. 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 Please return to the emergency department if you develop worsening chest pain, shortness of breath, tachycardia, you pass out, or any other symptoms that are concerning to you. Referrals: MAKSIM CHENG MD [Primary Care Provider] - Follow up as needed WILDER WILLAMS MD [ACTIVE STAFF] - Follow up as needed
--- NOTE | 2017-10-08 20:39 | RADIOLOGY REPORT (SQ) ---
EXAM DESCRIPTION: CT HEAD WITHOUT COMPLETED DATE/TIME: 10/08/2017 8:18 pm REASON FOR STUDY: resolved slurred speech COMPARISON: 03/27/2017 TECHNIQUE: Axial images acquired through the brain without intravenous contrast. Images reviewed wi th bone, brain and subdural windows. Additional sagittal and coronal reconstructions were generated. Images stored on PACS. All CT scanners at this facility use dose modulation, iterative reconstruction, and/or weight based d osing when appropriate to reduce radiation dose to as low as reasonably achievable (ALARA). [facility]: Dose Right [facility]: CareDose [facility]: Dose Right [facility]: Teradose 4D [facility]: Smart [employer] RADIATION DOSE: CT Rad equipment meets quality standard of care and radiation dose reduction techniq ues were employed. CTDIvol: 53.2 mGy. DLP: 1070 mGy-cm. mGy. LIMITATIONS: None. FINDINGS: VENTRICLES: Normal size and contour. CEREBRUM: No masses. No hemorrhage. No midline shift. No evidence for acute infarction. Normal gra y/white matter differentiation. No areas of low density in the white matter. CEREBELLUM: No masses. No hemorrhage. No alteration of density. No evidence for acute infarction. EXTRAAXIAL SPACES: No fluid collections. No masses. ORBITS AND GLOBE: No intra- or extraconal masses. Normal contour of globe without masses. CALVARIUM: No fracture. PARANASAL SINUSES: No fluid or mucosal thickening. SOFT TISSUES: No mass or hematoma. OTHER: No other significant finding. IMPRESSION: NORMAL BRAIN CT WITHOUT CONTRAST. EVIDENCE OF ACUTE STROKE: NO. COMMENT: Quality ID # [id number]: Final reports with documentation of one or more dose reduction techniques (e.g., Automated exposure control, adjustment of the mA and/or kV according to patient size, use of iterative reconstruction technique) TECHNICAL DOCUMENTATION: JOB ID: [id number] [employer]- All Rights Reserved Reading location - IP/workstation name: [email or web address]
[2017-10-09 00:16] VITALS: BP 160/91
== END 2017-10-09 00:16 | disposition home or self-care (01) ==
LOC: ER 18:29
DX: R07.9 Chest pain, unspecified (principal); R51 Headache; R06.02 Shortness of breath; R00.2 Palpitations; M79.601 Pain in right arm; R11.0 Nausea; R47.81 Slurred speech; I48.91 Unspecified atrial fibrillation; Z86.711 Personal history of pulmonary embolism; I10 Essential (primary) hypertension; E11.9 Type 2 diabetes mellitus without complications
CPT/HCPCS: 93005; 99285; 36415; 82553; 82550; 83735; 85025; 80053; 84484; 83880; 71045; 70450; 93010; A9270

== ENCOUNTER → 2017-10-18 | Outpatient (CLI) | payer MEDICARE, OTHER ==
--- NOTE | 2017-10-18 10:56 | WOMENS IMAGING REPORT ---
EXAM DESCRIPTION: BILAT SCREENING MAMMO W/CAD COMPLETED DATE/TIME: 10/18/2017 9:31 am REASON FOR STUDY: SCREENING MAMMO Z12.31 ENCNTR SCREEN MAMMOGRAM FOR MALIGNANT NEOPLASM OF RONNIE COMPARISON: Multiple since 2014 TECHNIQUE: Standard craniocaudal and mediolateral oblique views of each breast recorded using digita l acquisition. LIMITATIONS: None. FINDINGS: No masses, calcifications or architectural distortion. No areas of suspicion. Read with the assistance of CAD. .[facility] - R2 Cenova Version 1.3 .[facility] Imaging - R2 Cenova Version 1.3 .[facility] - R2 Cenova Version 2.4 .[facility] - R2 Cenova Version 2.4 .[facility] - R2 Operations Leader Version 9.2 IMPRESSION: NORMAL MAMMOGRAM. BIRADS 1. BREAST DENSITY: a. The breasts are almost entirely fatty. BIRAD: 1 NEGATIVE RECOMMENDATION: ROUTINE SCREENING Please continue yearly bilateral screening mammography or tomosynthesis in October 2018 COMMENT: The patient has been notified of the results by letter per SA requirements. Additional no tification policies are in place for contacting patient with suspicious or incomplete findings. Quality ID #[id number]: The [employer] recommends an annual screening mammogram for women aged 40 years or over. This facility utilizes a reminder system to ensure that all patients receive reminder letters, and/or direct phone calls for appointments. This includes reminders for routine scr eening mammograms, diagnostic mammograms, or other Breast Imaging Interventions when appropriate. Th is patient will be placed in the appropriate reminder system. The [employer] (ACR) has developed recommendations for screening MRI of the breast s in certain patient populations, to be used in conjunction with mammography. Breast MRI surveillanc e may be appropriate for women with more than 20% lifetime risk of developing breast cancer as deter mined by genetic testing, significant family history of the disease, or history of mantle radiation f or Hodgkins Disease. ACR Practice Guidelines 2008. TECHNICAL DOCUMENTATION: FINDING NUMBER: (1) ASSESSMENT: (1) JOB ID: [id number] [employer] - [employer]- All Rights Reserved Reading location - IP/workstation name: [email or web address]
== END ==
LOC: WI 09:04
PROVIDERS: ATTEND Family Medicine
DX: Z12.31 Encounter for screening mammogram for malignant neoplasm of breast (principal)
CPT/HCPCS: 77067

== ENCOUNTER 2017-11-21 22:52 | Emergency (ER) | payer MEDICARE ==
[2017-11-21 23:14] LABS: ABSOLUTE EOSINOPHILS # (AUTO) 0.1 10^3/uL (0.0-0.6); ABSOLUTE LYMPHOCYTES (AUTO) 1.5 10^3/uL (0.5-4.7); ABSOLUTE MONOCYTES (AUTO) 0.3 10^3/uL (0.1-1.4); ABSOLUTE NEUT (AUTO) 1.4 10^3/uL (1.7-8.2); BASOPHILS % (AUTO) 1.2 % (0-2); EOSINOPHILS % (AUTO) 1.7 % (0-6); HEMATOCRIT 39.3 % (36.0-47.0); HEMOGLOBIN 13.3 g/dL (12.0-15.5); LYMPHOCYTES % (AUTO) 45.8 % (13-45); MEAN CORPUSCULAR HEMOGLOBIN 27.3 pg (27.0-33.4); MEAN CORPUSCULAR HGB CONC 33.8 g/dL (32.0-36.0); MEAN CORPUSCULAR VOLUME 81 fl (80-97); MONOCYTES % (AUTO) 9.2 % (3-13); PLATELET COUNT 171 10^3/uL (150-450); RED BLOOD COUNT 4.86 10^6/uL (3.72-5.28); RED CELL DISTRIBUTION WIDTH 14.3 % (11.5-14.0); SEGMENTED NEUTROPHILS % (AUTO) 42.1 % (42-78); TOTAL CELLS COUNTED % (AUTO) 100 %; WHITE BLOOD COUNT 3.3 10^3/uL (4.0-10.5)
--- NOTE | 2017-11-21 23:21 | RADIOLOGY REPORT (SQ) ---
EXAM DESCRIPTION: XR CHEST 1 VIEW COMPLETED DATE/TME: 11/21/2017 22:53 CLINICAL HISTORY: 57 years Female, palpitations COMPARISON: 5.8.18 NUMBER OF VIEWS/TECHNIQUE: 1/AP FINDINGS: Adequate lung volume, clear parenchyma, normal cardiac silhouette, and intact bony thorax. IMPRESSION: No acute cardiopulmonary findings.
--- NOTE | 2017-11-21 23:41 | ER Document Report ---
ED General - General Mode of Arrival: Medic Information source: Patient TRAVEL OUTSIDE OF THE [place] IN LAST 30 DAYS: No <ANAMARIA SOLER - Last Filed: 11/22/17 01:08> <PATRICIANELSONDANIELITO - Last Filed: 11/22/17 01:44> - General Chief Complaint: Palpitations Stated Complaint: RAPID HEART BEAT Time Seen by Provider: 11/21/17 23:08 Notes: Patient is a 57 year old female with diabetes, HTN and a reported history of pulmonary embolism presents to the emergency department complaining of intermittent heart palpitations. Patient states she had an episode 6 days ago, yesterday and today. She states the episodes normally last 2-3 minutes with her longest episode lasting approximately 5 minutes. She states she has seen Dr. Willams in regards to her heart palpitations and he directed her to a specialist in [place]. She states she was then prescribed Sotalol. Patient was seen and discharged on October 08, 2017 for similar symptoms and had a scheduled follow up with Dr. Cheng and Dr. Willams. Patient states she has not seen either in a few months. Patient is currently taking Sotalol, Metformin and Keflex. (ANAMARIA SOLER) - Related Data Allergies/Adverse Reactions: codeine Adverse Reaction (Unknown, Verified 09/05/16 10:32) PALPITATIONS diazepam [From Valium] Adverse Reaction (Unknown, Verified 09/05/16 10:32) PALPITATIONS oxycodone [From Percocet] Adverse Reaction (Unknown, Verified 09/05/16 10:32) PALPITATIONS Past Medical History - General Information source: Patient - Social History Smoking Status: Never Smoker Smoking Education Provided: No Frequency of alcohol use: None Family History: Hypertension, Malignancy, Other Patient has suicidal ideation: No Patient has homicidal ideation: No - Past Medical History Cardiac Medical History: Reports: Hx Atrial Fibrillation, Hx Hypercholesterolemia, Hx Hypertension, Hx Pulmonary Embolism - Recent and remote Endocrine Medical History: Reports: Hx Diabetes Mellitus Type 2 Past Surgical History: Reports: Hx Thyroid Surgery, Hx Tubal Ligation - Immunizations Hx Diphtheria, Pertussis, Tetanus Vaccination: Yes <ANAMARIA SOLER - Last Filed: 11/22/17 01:08> Review of Systems - Review of Systems Constitutional: No symptoms reported EENT: No symptoms reported Cardiovascular: See HPI, Palpitations Respiratory: No symptoms reported Gastrointestinal: No symptoms reported Genitourinary: No symptoms reported Female Genitourinary: No symptoms reported Musculoskeletal: No symptoms reported Skin: No symptoms reported Hematologic/Lymphatic: No symptoms reported Neurological/Psychological: No symptoms reported -: Yes All other systems reviewed and negative <ANAMARIA SOLER - Last Filed: 11/22/17 01:08> Physical Exam - General General appearance: Appears well, Alert In distress: None - HEENT Head: Normocephalic, Atraumatic Eyes: Normal Conjunctiva: Normal Extraocular movements intact: Yes Pupils: PERRL Neck: Normal - Respiratory Respiratory status: No respiratory distress Chest status: Nontender Breath sounds: Normal Chest palpation: Normal - Cardiovascular Rhythm: Regular Heart sounds: Normal auscultation Murmur: No Friction rub: No Gallop: None auscultated - Abdominal Inspection: Morbidly Obese Distension: No distension Bowel sounds: Normal Organomegaly: No organomegaly - Back Back: Normal - Extremities General upper extremity: Normal ROM General lower extremity: Normal ROM - Neurological Neuro grossly intact: Yes Cognition: Normal Orientation: AAOx4 [place] Coma Scale Eye Opening: Spontaneous [place] Coma Scale Verbal: Oriented Adrián Coma Scale Motor: Obeys Commands Adrián Coma Scale Total: 15 Speech: Normal - Psychological Associated symptoms: Normal affect, Normal mood - Skin Skin Temperature: Warm Skin Moisture: Dry Skin Color: Normal <ANAMARIA SOLER - Last Filed: 11/22/17 01:08> - Vital signs Vitals: Pulse Ox 98 11/21/17 22:53 Course - Laboratory Result Diagrams: 11/21/17 23:07 11/21/17 23:35 <ANAMARIA SOLER - Last Filed: 11/22/17 01:08> - Laboratory Result Diagrams: 11/21/17 23:07 11/21/17 23:35 - Diagnostic Test Radiology reviewed: Image reviewed, Reports reviewed - Chest x-ray is unremarkable - EKG Interpretation by Me EKG shows normal: Sinus rhythm, [place], Intervals, QRS Complexes, ST-T Waves Rate: Normal - 64 Rhythm: NSR When compared to previous EKG there are: No significant change <DANIELITO GOMEZ - Last Filed: 11/22/17 01:44> - Re-evaluation Re-evalutation: 11/22/17 01:41 Patient has remained in a normal sinus rhythm the entire time she is here. ( DANIELITO GOMEZ) - Vital Signs Vital signs: Temp Pulse Resp BP Pulse Ox 15 162/87 H 97 11/22/17 00:24 11/22/17 00:01 11/22/17 00:24 - Laboratory Laboratory results interpreted by me: 11/21/17 11/21/17 23:07 23:35 WBC 3.3 L RDW 14.3 H Lymphocytes % 45.8 H Absolute Neutrophils 1.4 L Glucose 178 H Discharge <ANAMARIA SOLER - Last Filed: 11/22/17 01:08> <DANIELITO GOMEZ - Last Filed: 11/22/17 01:44> - Discharge Clinical Impression: Heart palpitations Condition: Stable Disposition: HOME, SELF-CARE Additional Instructions: Palpitations (Irregular/Rapid Heartrate): Irregular or rapid heartbeat is called "palpitation." To diagnose the cause of palpitation, we have to "catch it in the act" with an EKG. Sinus Tachycardia: This is a rapid (but NORMAL) rhythm that can be due to fever, pain, anxiety, lack of sleep, over-exertion, or drugs. Cold medications, caffeine, and diet pills are particularly likely to cause tachycardia. Usually , all that's required is rest, reassurance, and avoiding caffeine, alcohol, nicotine, and unnecessary medicines. Paroxysmal Atrial Tachycardia (PAT): This abnormally rapid heartbeat is caused by a "short circuit" in the electrical system of the heart. It is not dangerous, unless other heart disease is present. These attacks of PAT may occur occasionally for years. Medication is available for treatment. Paroxysmal Atrial Fibrillation or Atrial Flutter: This is irregular electrical activity in the upper heart chamber. These abnormal rhythms often occur with valve disease or in hearts damaged by hardening of the arteries. These rhythms usually require further testing, for example a cardiac echo. Premature Beats: Extra beats occur more commonly after caffeine, nicotine , alcohol, cold pills, diet pills. Emotional stress or fatigue also provoke them. Extra beats are only dangerous when heart disease is present. They usually need no treatment. If they're frequent, or if evidence of heart disease develops, medication can be given to suppress them. If we were unable to "catch" the palpitations on EKG, you should try to get an EKG immediately if the symptoms begin again. Contact the physician at once if you develop persistent lightheadedness, shortness of breath, chest pain , or swelling of the ankles. There were no irregular heartbeats noted while you were here. Your EKG was completely normal. Your chest x-ray did not show any abnormalities. Your lab work did not show any abnormalities. You should follow-up with your primary care provider today to discuss these ongoing palpitations and decide whether or not to ignore them or seek treatment when they occur. RETURN TO THE EMERGENCY ROOM IF ANY NEW OR WORSENING SYMPTOMS. Referrals: MAKSIM CHENG MD [Primary Care Provider] - 11/22/17 Scribe Attestation: 11/22/17 00:16 I personally performed the services described in the documentation, reviewed and edited the documentation which was dictated to the scribe in my presence, and it accurately records my words and actions. (DANIELITO GOMEZ) Scribe Documentation - Scribe Written by Ivon:: Ivon Haddad, 11/21/2017 23:59 acting as scribe for :: Patricia <ANAMARIA SOLER - Last Filed: 11/22/17 01:08>
[2017-11-22 00:03] LABS: ALANINE AMINOTRANSFERASE 26 U/L (9-52); ALBUMIN 3.6 g/dL (3.5-5.0); ALKALINE PHOSPHATASE 51 U/L (38-126); ANION GAP 10 (5-19); ASPARTATE AMINO TRANSFERASE 17 U/L (14-36); BILIRUBIN,DIRECT 0.3 mg/dL (0.0-0.4); BILIRUBIN,TOTAL 0.6 mg/dL (0.2-1.3); BLOOD UREA NITROGEN 14 mg/dL (7-20); CALCIUM 9.1 mg/dL (8.4-10.2); CARBON DIOXIDE 25 mmol/L (22-30); CHLORIDE 103 mmol/L (98-107); CREATINE KINASE 51 U/L (30-135); GLUCOSE 178 mg/dL (75-110); POTASSIUM 3.9 mmol/L (3.6-5.0); SODIUM 138.2 mmol/L (137-145); TOTAL PROTEIN 7.1 g/dL (6.3-8.2)
[2017-11-22 00:15] LABS: CREATINE KINASE MB 0.23 ng/mL (<4.55); TROPONIN I < 0.012 ng/mL
[2017-11-22 02:07] VITALS: BP 159/88
--- NOTE | 2017-11-22 08:24 | EKG REPORT ---
SEVERITY:- BORDERLINE ECG - SINUS RHYTHM PROBABLE LEFT ATRIAL ABNORMALITY : Confirmed by: Roger Willams 22-Nov-2017 08:23:54
== END 2017-11-22 02:07 | disposition home or self-care (01) ==
LOC: ER 22:52
DX: R00.2 Palpitations (principal); E11.9 Type 2 diabetes mellitus without complications; I10 Essential (primary) hypertension; Z86.711 Personal history of pulmonary embolism; Z79.899 Other long term (current) drug therapy; Z79.84 Long term (current) use of oral hypoglycemic drugs
CPT/HCPCS: 36415; 71045; 80053; 82550; 82553; 84484; 85025; 93005; 93010; 99285

== ENCOUNTER 2017-12-18 07:45 | Emergency (ER) | payer MEDICARE ==
[2017-12-18 08:40] LABS: ABSOLUTE EOSINOPHILS # (AUTO) 0.1 10^3/uL (0.0-0.6); ABSOLUTE LYMPHOCYTES (AUTO) 0.9 10^3/uL (0.5-4.7); ABSOLUTE MONOCYTES (AUTO) 0.2 10^3/uL (0.1-1.4); ABSOLUTE NEUT (AUTO) 1.9 10^3/uL (1.7-8.2); BASOPHILS % (AUTO) 0.3 % (0-2); EOSINOPHILS % (AUTO) 1.7 % (0-6); LYMPHOCYTES % (AUTO) 28.6 % (13-45); MEAN CORPUSCULAR HEMOGLOBIN 26.8 pg (27.0-33.4); MEAN CORPUSCULAR HGB CONC 33.2 g/dL (32.0-36.0); MEAN CORPUSCULAR VOLUME 81 fl (80-97); MONOCYTES % (AUTO) 7.7 % (3-13); PLATELET COUNT 144 10^3/uL (150-450); RED BLOOD COUNT 4.83 10^6/uL (3.72-5.28); RED CELL DISTRIBUTION WIDTH 14.4 % (11.5-14.0); SEGMENTED NEUTROPHILS % (AUTO) 61.7 % (42-78); TOTAL CELLS COUNTED % (AUTO) 100 %; WHITE BLOOD COUNT 3.1 10^3/uL (4.0-10.5)
[2017-12-18] MEDS ORDERED: PROCHLORPERAZINE EDISYLATE INJ 10 MG/2 ML VIAL IV ONE (08:59)
[2017-12-18] MEDS ORDERED: DIPHENHYDRAMINE HCL 50 MG/ML VIAL IV ONE (08:59)
--- NOTE | 2017-12-18 08:59 | ER Document Report ---
ED GI/ - General Chief Complaint: Nausea Stated Complaint: DIZZY Time Seen by Provider: 12/18/17 08:09 TRAVEL OUTSIDE OF THE [place] IN LAST 30 DAYS: No - Related Data Allergies/Adverse Reactions: codeine Adverse Reaction (Unknown, Verified 09/05/16 10:32) PALPITATIONS diazepam [From Valium] Adverse Reaction (Unknown, Verified 09/05/16 10:32) PALPITATIONS oxycodone [From Percocet] Adverse Reaction (Unknown, Verified 09/05/16 10:32) PALPITATIONS Past Medical History - Social History Smoking Status: Never Smoker Chew tobacco use (# tins/day): No Frequency of alcohol use: None Drug Abuse: None Family History: Hypertension, Malignancy, Other Patient has suicidal ideation: No Patient has homicidal ideation: No - Past Medical History Cardiac Medical History: Reports: Hx Atrial Fibrillation, Hx Hypercholesterolemia, Hx Hypertension, Hx Pulmonary Embolism - Recent and remote Denies: Hx Congestive Heart Failure, Hx Coronary Artery Disease, Hx Heart Attack Pulmonary Medical History: Denies: Hx Asthma, Hx Bronchitis, Hx COPD, Hx Pneumonia, Hx Tuberculosis Neurological Medical History: Denies: Hx Cerebrovascular Accident, Hx Seizures Endocrine Medical History: Reports: Hx Diabetes Mellitus Type 2 Renal/ Medical History: Denies: Hx Peritoneal Dialysis Musculoskeletal Medical History: Denies Hx Arthritis Psychiatric Medical History: Denies: Hx Depression Past Surgical History: Reports: Hx Thyroid Surgery, Hx Tubal Ligation - Immunizations Hx Diphtheria, Pertussis, Tetanus Vaccination: Yes Physical Exam - Vital signs Vitals: Temp 97.6 F 12/18/17 08:31 Course - Vital Signs Vital signs: Temp Pulse Resp BP Pulse Ox 97.6 F 12/18/17 08:31 - Laboratory Result Diagrams: 12/18/17 08:22 12/18/17 08:22 Laboratory results interpreted by me: 12/18/17 08:22 WBC 3.1 L MCH 26.8 L RDW 14.4 H Plt Count 144 L Discharge - Discharge Referrals: MAKSIM CHENG MD [Primary Care Provider] - Follow up as needed
[2017-12-18] MEDS ORDERED: KETOROLAC TROMETHAMINE INJ/PF 30 MG/1 ML SDV IV ONE (09:00)
--- NOTE | 2017-12-18 09:00 | ER Document Report ---
ED General - General Mode of Arrival: Ambulatory Information source: Patient TRAVEL OUTSIDE OF THE [place] IN LAST 30 DAYS: No <CAROL ANN ROBERTS - Last Filed: 12/18/17 12:10> <DANIELITO GOMEZ - Last Filed: 12/18/17 12:50> - General Chief Complaint: Nausea Stated Complaint: DIZZY Time Seen by Provider: 12/18/17 08:09 Notes: Patient is a 57 year old female that presents to the emergency department today with complaints of a headache, dizziness, vomiting, and diaphoresis. Patient states that she felt better after receiving medications from EMS. Patient was seen recently for palpitations but states she has not followed up with her manager media relations as instructed. (CAROL ANN ROBERTS) - Related Data Allergies/Adverse Reactions: codeine Adverse Reaction (Unknown, Verified 09/05/16 10:32) PALPITATIONS diazepam [From Valium] Adverse Reaction (Unknown, Verified 09/05/16 10:32) PALPITATIONS oxycodone [From Percocet] Adverse Reaction (Unknown, Verified 09/05/16 10:32) PALPITATIONS Past Medical History - General Information source: Patient - Social History Smoking Status: Never Smoker Cigarette use (# per day): No Chew tobacco use (# tins/day): No Frequency of alcohol use: None Drug Abuse: None Lives with: Family Family History: Reviewed & Not Pertinent, Hypertension, Malignancy, Other Patient has suicidal ideation: No Patient has homicidal ideation: No - Past Medical History Cardiac Medical History: Reports: Hx Atrial Fibrillation, Hx Hypercholesterolemia, Hx Hypertension, Hx Pulmonary Embolism - Recent and remote Endocrine Medical History: Reports: Hx Diabetes Mellitus Type 2 Past Surgical History: Reports: Hx Thyroid Surgery - Thyroidectomy secondary to goiter, Hx Tubal Ligation - Immunizations Hx Diphtheria, Pertussis, Tetanus Vaccination: Yes <CAROL ANN ROBERTS - Last Filed: 12/18/17 12:10> Review of Systems - Review of Systems Constitutional: See HPI, Diaphoresis EENT: No symptoms reported Cardiovascular: See HPI, Dizziness Respiratory: No symptoms reported Gastrointestinal: See HPI, Vomiting Genitourinary: No symptoms reported Female Genitourinary: No symptoms reported Musculoskeletal: No symptoms reported Skin: No symptoms reported Hematologic/Lymphatic: No symptoms reported Neurological/Psychological: See HPI, Headaches -: Yes All other systems reviewed and negative <CAROL ANN ROBERTS - Last Filed: 12/18/17 12:10> Physical Exam <CAROL ANN ROBERTS - Last Filed: 12/18/17 12:10> <DANIELITO GOMEZ - Last Filed: 12/18/17 12:50> - Vital signs Vitals: Resp BP Pulse Ox 15 160/79 H 99 12/18/17 07:59 12/18/17 07:59 12/18/17 07:59 - Notes Notes: Physical Exam: General: Alert, morbidly obese. HEENT: Normocephalic. Atraumatic. PERRL. Extraocular movements intact. Oropharynx clear. Temporal musculature tenderness to palpation. Scalp musculature tenderness to palpation. Neck: Supple. Posterior cervical musculature tenderness with palpation. Respiratory: No respiratory distress. Clear and equal breath sounds bilaterally. Cardiovascular: Regular rate and rhythm. Abdominal: Mordbidly obese. Non-tender. No distension. Normal Bowel Sounds. Back: Non-tender. No deformity or step off. Extremities: Moves all four extremities. Upper extremities: Normal inspection. Normal ROM. Lower extremities: Normal inspection. No edema. Normal ROM. Neurological: Normal cognition. AAOx4. Normal speech. Psychological: Normal affect. Normal Mood. Skin: Warm. Dry. Normal color. (CAROL ANN ROBERTS) Course - Laboratory Result Diagrams: 12/18/17 08:22 12/18/17 08:22 <CAROL ANN ROBERTS - Last Filed: 12/18/17 12:10> - Laboratory Result Diagrams: 12/18/17 08:22 12/18/17 08:22 - EKG Interpretation by Wy EKG shows normal: Sinus rhythm, [place], Intervals, QRS Complexes, ST-T Waves Rate: Normal - 58 P Waves: LAE Heart block present: 1st Degree <DANIELITO GOMEZ - Last Filed: 12/18/17 12:50> - Re-evaluation Re-evalutation: 12/18/17 12:48 Patient's blood pressure is much improved, her headache is gone, she feels comfortable going home. It appears that she has a muscle contraction headache and her usual poorly controlled high blood pressure. (DANIELITO GOMEZ) - Vital Signs Vital signs: Temp Pulse Resp BP Pulse Ox 97.6 F 15 157/73 H 97 12/18/17 08:31 12/18/17 12:32 12/18/17 12:32 12/18/17 12:32 - Laboratory Laboratory results interpreted by me: 12/18/17 12/18/17 12/18/17 08:22 08:22 09:07 WBC 3.1 L MCH 26.8 L RDW 14.4 H Plt Count 144 L Glucose 189 H Albumin 3.4 L Ur Leukocyte Esterase MODERATE H Discharge <CAROL ANN ROBERTS - Last Filed: 12/18/17 12:10> <DANIELITO GOMEZ - Last Filed: 12/18/17 12:50> - Discharge Clinical Impression: Muscle tension headache, Poorly-controlled hypertension Condition: Stable Disposition: HOME, SELF-CARE Additional Instructions: Tension Headache: Your problem has been diagnosed as muscle tension headache. This very common type of headache occurs because of tightness in the muscles of the head and neck. The cause may be neck or jaw joint problems, but most commonly the cause is emotional stress. The headache may last hours or days. The treatment of uncomplicated tension headaches is rest and pain medication. Often, the newer antiinflammatory pain medications are prescribed, as these also decrease the irritability of the painful tissues. Muscle relaxers , cold packs, or warm packs are sometimes helpful. Anti-anxiety medication or narcotics are sometimes needed temporarily, but are best avoided in the long run. Your doctor has evaluated your headache problem, and finds no evidence of a serious health problem as a cause for the headache. If your headache becomes more severe, or if new symptoms develop (such as fever, stiff neck, vomiting, or decreasing alertness) you should be re-examined by the physician. Take Tylenol and ibuprofen for your headache as needed. Drink plenty of fluids. Get plenty of rest. Be sure to take all of your regularly prescribed medications as scheduled. Follow-up with your doctor this week if not improving. RETURN TO THE EMERGENCY ROOM IF ANY NEW OR WORSENING SYMPTOMS. Referrals: MAKSIM CHENG MD [Primary Care Provider] - Follow up as needed Scribe Attestation: 12/18/17 09:33 I personally performed the services described in the documentation, reviewed and edited the documentation which was dictated to the scribe in my presence, and it accurately records my words and actions. (DANIELITO GOMEZ) Scribe Documentation - Scribe Written by Ivon:: Ivon Heard, 12/18/2017 1241 acting as scribe for :: Edmundo <CAROL ANN ROBERTS - Last Filed: 12/18/17 12:10>
[2017-12-18 09:12] LABS: ALANINE AMINOTRANSFERASE 23 U/L (9-52); ALBUMIN 3.4 g/dL (3.5-5.0); ALKALINE PHOSPHATASE 51 U/L (38-126); ANION GAP 12 (5-19); ASPARTATE AMINO TRANSFERASE 14 U/L (14-36); BILIRUBIN,DIRECT 0.2 mg/dL (0.0-0.4); BILIRUBIN,TOTAL 0.5 mg/dL (0.2-1.3); BLOOD UREA NITROGEN 14 mg/dL (7-20); CALCIUM 8.7 mg/dL (8.4-10.2); CARBON DIOXIDE 24 mmol/L (22-30); CHLORIDE 105 mmol/L (98-107); CREATINE KINASE 47 U/L (30-135); GLUCOSE 189 mg/dL (75-110); POTASSIUM 4.4 mmol/L (3.6-5.0); SODIUM 140.5 mmol/L (137-145); TOTAL PROTEIN 7.1 g/dL (6.3-8.2)
[2017-12-18 09:22] LABS: CREATINE KINASE MB 0.28 ng/mL (<4.55)
--- NOTE | 2017-12-18 09:22 | EKG REPORT ---
SEVERITY:- ABNORMAL ECG - SINUS RHYTHM FIRST DEGREE AV BLOCK PROBABLE LEFT ATRIAL ABNORMALITY : Confirmed by: Roger Willams 18-Dec-2017 09:21:10
[2017-12-18 09:24] LABS: APPEARANCE,URINE CLOUDY; BILIRUBIN,URINE NEGATIVE (NEGATIVE); COLOR,URINE YELLOW; GLUCOSE, URINE NEGATIVE (NEGATIVE); KETONES,URINE NEGATIVE (NEGATIVE); LEUKOCYTE ESTERASE,URINE MODERATE (NEGATIVE); NITRITE,URINE NEGATIVE (NEGATIVE); PROTEIN,URINE NEGATIVE (NEGATIVE); URINE SPECIFIC GRAVITY 1.015; UROBILINOGEN,URINE NEGATIVE mg/dL (<2.0)
[2017-12-18 09:27] LABS: TROPONIN I < 0.012 ng/mL
[2017-12-18] MEDS ORDERED: HYDRALAZINE HCL INJ/PF 20 MG/1 ML SDV IV ONE (10:22)
[2017-12-18 13:06] VITALS: BP 156/86
== END 2017-12-18 13:06 | disposition home or self-care (01) ==
LOC: ER 07:45
DX: G44.209 Tension-type headache, unspecified, not intractable (principal); R61 Generalized hyperhidrosis; I10 Essential (primary) hypertension; R11.0 Nausea; R42 Dizziness and giddiness; E11.9 Type 2 diabetes mellitus without complications; Z98.51 Tubal ligation status
CPT/HCPCS: 93005; 99284; 96374; 96375; 36415; 82553; 82550; 85025; 80053; 81001; 84484; 93010; J1200; J0360; J1885; J0780

== ENCOUNTER 2018-01-10 13:17 | Emergency (ER) | payer MEDICARE ==
--- NOTE | 2018-01-10 13:50 | ER Document Report ---
ED Medical Screen (RME) - General Chief Complaint: Dizziness Stated Complaint: WEAKNESS, DIZZY, LIGHTHEADED Time Seen by Provider: 01/10/18 13:48 Mode of Arrival: Ambulatory Information source: Patient TRAVEL OUTSIDE OF THE [place] IN LAST 30 DAYS: No - HPI Patient complains to provider of: weakness Onset: Other - pt recently started on new meds by pcp with c/o "hot a cold feelings", weakness and light-headedness - Related Data Allergies/Adverse Reactions: codeine Adverse Reaction (Unknown, Verified 09/05/16 10:32) PALPITATIONS diazepam [From Valium] Adverse Reaction (Unknown, Verified 09/05/16 10:32) PALPITATIONS oxycodone [From Percocet] Adverse Reaction (Unknown, Verified 09/05/16 10:32) PALPITATIONS Past Medical History - Past Medical History Cardiac Medical History: Reports: Hx Atrial Fibrillation, Hx Hypercholesterolemia, Hx Hypertension, Hx Pulmonary Embolism - Recent and remote Denies: Hx Congestive Heart Failure, Hx Coronary Artery Disease, Hx Heart Attack Pulmonary Medical History: Denies: Hx Asthma, Hx Bronchitis, Hx COPD, Hx Pneumonia, Hx Tuberculosis Neurological Medical History: Denies: Hx Cerebrovascular Accident, Hx Seizures Endocrine Medical History: Reports: Hx Diabetes Mellitus Type 2 Renal/ Medical History: Denies: Hx Peritoneal Dialysis Musculoskeltal Medical History: Denies Hx Arthritis Psychiatric Medical History: Denies: Hx Depression Past Surgical History: Reports: Hx Thyroid Surgery - Thyroidectomy secondary to goiter, Hx Tubal Ligation - Immunizations Hx Diphtheria, Pertussis, Tetanus Vaccination: Yes Physical Exam - Vital signs Vitals: Temp Pulse Resp BP Pulse Ox 98.0 F 64 18 158/84 H 100 01/10/18 13:30 01/10/18 13:30 01/10/18 13:30 01/10/18 13:30 01/10/18 13:30 Course - Vital Signs Vital signs: Temp Pulse Resp BP Pulse Ox 98.0 F 64 18 158/84 H 100 01/10/18 13:30 01/10/18 13:30 01/10/18 13:30 01/10/18 13:30 01/10/18 13:30 Doctor's Discharge - Discharge Referrals: HAMILTON ROSARIO PA-C [Primary Care Provider] - Follow up as needed
[2018-01-10 14:35] LABS: ABSOLUTE LYMPHOCYTES (AUTO) 1.3 10^3/uL (0.5-4.7); ABSOLUTE MONOCYTES (AUTO) 0.2 10^3/uL (0.1-1.4); ABSOLUTE NEUT (AUTO) 1.2 10^3/uL (1.7-8.2); BASOPHILS % (AUTO) 0.4 % (0-2); EOSINOPHILS % (AUTO) 1.1 % (0-6); HEMATOCRIT 42.3 % (36.0-47.0); LYMPHOCYTES % (AUTO) 47.4 % (13-45); MEAN CORPUSCULAR HEMOGLOBIN 26.6 pg (27.0-33.4); MEAN CORPUSCULAR VOLUME 80 fl (80-97); MONOCYTES % (AUTO) 8.9 % (3-13); PLATELET COUNT 160 10^3/uL (150-450); RED BLOOD COUNT 5.26 10^6/uL (3.72-5.28); RED CELL DISTRIBUTION WIDTH 14.1 % (11.5-14.0); SEGMENTED NEUTROPHILS % (AUTO) 42.2 % (42-78); TOTAL CELLS COUNTED % (AUTO) 100 %; WHITE BLOOD COUNT 2.8 10^3/uL (4.0-10.5)
[2018-01-10 14:54] LABS: APPEARANCE,URINE SLIGHTLY-CLOUDY; BILIRUBIN,URINE NEGATIVE (NEGATIVE); COLOR,URINE YELLOW; GLUCOSE, URINE NEGATIVE (NEGATIVE); KETONES,URINE NEGATIVE (NEGATIVE); LEUKOCYTE ESTERASE,URINE SMALL (NEGATIVE); NITRITE,URINE NEGATIVE (NEGATIVE); PROTEIN,URINE 30 mg/dL (NEGATIVE); URINE SPECIFIC GRAVITY 1.023
[2018-01-10 15:08] LABS: ALANINE AMINOTRANSFERASE 15 U/L (9-52); ALBUMIN 3.7 g/dL (3.5-5.0); ALKALINE PHOSPHATASE 48 U/L (38-126); ANION GAP 10 (5-19); ASPARTATE AMINO TRANSFERASE 15 U/L (14-36); BILIRUBIN,DIRECT 0.2 mg/dL (0.0-0.4); BILIRUBIN,TOTAL 0.6 mg/dL (0.2-1.3); BLOOD UREA NITROGEN 9 mg/dL (7-20); CALCIUM 9.1 mg/dL (8.4-10.2); CARBON DIOXIDE 29 mmol/L (22-30); CHLORIDE 102 mmol/L (98-107); CREATINE KINASE 40 U/L (30-135); GLUCOSE 198 mg/dL (75-110); POTASSIUM 4.2 mmol/L (3.6-5.0); SODIUM 140.6 mmol/L (137-145); TOTAL PROTEIN 7.6 g/dL (6.3-8.2)
[2018-01-10 15:24] LABS: CREATINE KINASE MB < 0.22 ng/mL (<4.55); TROPONIN I < 0.012 ng/mL
--- NOTE | 2018-01-10 15:45 | ER Document Report ---
ED General - General Mode of Arrival: Ambulatory Information source: Patient TRAVEL OUTSIDE OF THE [place] IN LAST 30 DAYS: No <ANAMARIA SOLER - Last Filed: 01/10/18 20:11> <NCIKI SMITH - Last Filed: 01/10/18 23:40> - General Chief Complaint: Dizziness Stated Complaint: WEAKNESS, DIZZY, LIGHTHEADED Time Seen by Provider: 01/10/18 13:48 Notes: Patient is a 57 year old female with HTN, diabetes type 2, sleep apnea and a reported history of pulmonary embolism presents to the emergency department complaining of multiple symptoms including chills, congestion, a productive cough and shortness of breath onset a few days ago. She describes her symptoms as intermittent chills and a productive cough with whitish clear sputum. She states she is short of breath on exertion and further states she would get lightheaded afterwards. Patient denies chest pain, sick contacts, vomiting or diarrhea. Of significance, patient has had similar symptoms in the past along with heart palpitations and reported to the emergency department and discharged with instructions to follow up with a feather mixer, Dr. Willams. (ANAMARIA SOLER) - Related Data Allergies/Adverse Reactions: codeine Adverse Reaction (Mild, Verified 01/10/18 13:51) Migraine diazepam [From Valium] Adverse Reaction (Mild, Verified 01/10/18 13:51) PALPITATIONS oxycodone [From Percocet] Adverse Reaction (Mild, Verified 01/10/18 13:51) PALPITATIONS Past Medical History - General Information source: Patient - Social History Smoking Status: Never Smoker Family History: Reviewed & Not Pertinent, Hypertension, Malignancy, Other Patient has suicidal ideation: No Patient has homicidal ideation: No - Past Medical History Cardiac Medical History: Reports: Hx Atrial Fibrillation, Hx Hypercholesterolemia, Hx Hypertension, Hx Pulmonary Embolism - Recent and remote Endocrine Medical History: Reports: Hx Diabetes Mellitus Type 2 Past Surgical History: Reports: Hx Thyroid Surgery - Thyroidectomy secondary to goiter, Hx Tubal Ligation - Immunizations Hx Diphtheria, Pertussis, Tetanus Vaccination: Yes <ANAMAIRA SOLER - Last Filed: 01/10/18 20:11> Review of Systems - Review of Systems Constitutional: No symptoms reported EENT: See HPI, Nose congestion Cardiovascular: See HPI, Lightheaded Respiratory: See HPI, Cough, Short of breath Gastrointestinal: No symptoms reported Genitourinary: No symptoms reported Female Genitourinary: No symptoms reported Musculoskeletal: No symptoms reported Skin: No symptoms reported Hematologic/Lymphatic: No symptoms reported Neurological/Psychological: No symptoms reported -: Yes All other systems reviewed and negative <ANAMARIA SOLER - Last Filed: 01/10/18 20:11> Physical Exam <ANAMARIA SOLER - Last Filed: 01/10/18 20:11> <NICKI SMITH - Last Filed: 01/10/18 23:40> - Vital signs Vitals: Temp Pulse Resp BP Pulse Ox 98.0 F 64 18 158/84 H 100 01/10/18 13:30 01/10/18 13:30 01/10/18 13:30 01/10/18 13:30 01/10/18 13:30 - Notes Notes: GENERAL: Alert, interacts well. No acute distress. HEAD: Normocephalic, atraumatic. EYES: Pupils equal, round, and reactive to light. Extraocular movements intact. ENT: Oral mucosa dry, tongue midline. NECK: Full range of motion. Supple. Trachea midline. LUNGS: Clear to auscultation bilaterally, no wheezes, rales, or rhonchi. No respiratory distress. HEART: Regular rate and rhythm. No murmurs, gallops, or rubs. ABDOMEN: Morbidly obese. EXTREMITIES: Moves all 4 extremities spontaneously. NEUROLOGICAL: Alert and oriented x3. Normal speech. PSYCH: Normal affect, normal mood. SKIN: Warm, dry, normal turgor. No rashes or lesions noted. (ANAMARIA SOLER) Course - Laboratory Result Diagrams: 01/10/18 14:10 01/10/18 14:10 <ANAMARIA SOLER - Last Filed: 01/10/18 20:11> - Laboratory Result Diagrams: 01/10/18 14:10 01/10/18 14:10 - Diagnostic Test Radiology reviewed: Reports reviewed - EKG Interpretation by Me EKG shows normal: Sinus rhythm Rate: Normal Rhythm: NSR - Normal intervals <NICKI SMITH - Last Filed: 01/10/18 23:40> - Re-evaluation Re-evalutation: 01/10/18 20:05 Patient symptoms improved after fluid administration. Patient's symptoms consist of primarily feeling hot and cold with nonproductive cough. Patient has clear chest x-ray but I suspect she is likely suffering from a viral syndrome as her vitals are stable and her symptoms are consistent with bronchitis. Will provide 5 days of steroids and albuterol puffer. She does state that she gets short of breath but contributes this to her coughing. She has had a workup performed including an echocardiogram and is to see her feather mixer with an already scheduled. I discussed that she should take the medications I prescribed her and then report to her feather mixer on Saturday if her symptoms are not improving. At that time, they can review the echocardiogram that she already had performed her labs are within normal limits are nonsignificant with a normal troponin. Patient has no concerning findings ( NICKI SMITH) - Vital Signs Vital signs: Temp Pulse Resp BP Pulse Ox 98.0 F 64 16 142/80 H 99 01/10/18 13:30 01/10/18 13:30 01/10/18 20:01 01/10/18 20:01 01/10/18 20:01 - Laboratory Laboratory results interpreted by me: 01/10/18 01/10/18 01/10/18 14:10 14:10 14:10 WBC 2.8 L MCH 26.6 L RDW 14.1 H Lymphocytes % 47.4 H Absolute Neutrophils 1.2 L Glucose 198 H Urine Protein 30 H Urine Urobilinogen 4.0 H Ur Leukocyte Esterase SMALL H Discharge <ANAMARIA SOLER - Last Filed: 01/10/18 20:11> <NICKI SMITH - Last Filed: 01/10/18 23:40> - Discharge Clinical Impression: Cough, Shortness of breath Condition: Good Disposition: HOME, SELF-CARE Prescriptions: Albuterol Sulfate [Proair HFA Inhalation Aerosol 8.5 gm MDI] 2 puff IH Q4H PRN # 1 mdi PRN Reason: Prednisone [Deltasone 20 mg Tablet] 40 mg PO DAILY 5 Days #10 tablet Referrals: HAMILTON ROSARIO PA-C [Primary Care Provider] - Follow up as needed WILDER WILLAMS MD [ACTIVE STAFF] - 01/15/18 (Follow-up with Dr. Willams and let him know if the medications are provided to help with your symptoms, otherwise he will review your echocardiogram with you already performed on Saturday of next week and discuss your cardiac health.) Scribe Attestation: 01/10/18 23:40 I personally performed the services described in the documentation, reviewed and edited the documentation which was dictated to the scribe in my presence, and it accurately records my words and actions. (NICKI SMITH) Scribe Documentation - Scribe Written by Ivon:: Ivon Haddad, 01/10/2018 16:00 acting as scribe for :: Mikal <ANAMARIA SOLER - Last Filed: 01/10/18 20:11>
[2018-01-10] MEDS ORDERED: NORMAL SALINE 1000 ML 1,000 ML IV ONE (16:00)
--- NOTE | 2018-01-10 19:02 | RADIOLOGY REPORT (SQ) ---
EXAM DESCRIPTION: CHEST SINGLE VIEW COMPLETED DATE/TIME: 01/10/2018 6:53 pm REASON FOR STUDY: cough COMPARISON: 11/21/2017 EXAM PARAMETERS: NUMBER OF VIEWS: One view. TECHNIQUE: Single frontal radiographic view of the chest acquired. RADIATION DOSE: NA LIMITATIONS: None. FINDINGS: LUNGS AND PLEURA: No acute opacities, masses or pneumothorax. No pleural effusion. MEDIASTINUM AND HILAR STRUCTURES: Stable. HEART AND VASCULAR STRUCTURES: Stable. BONES: No acute findings. HARDWARE: None in the chest. OTHER: No other significant finding. IMPRESSION: NO ACUTE RADIOGRAPHIC FINDING IN THE CHEST. TECHNICAL DOCUMENTATION: JOB ID: [id number] [id number] 2010 [employer]- All Rights Reserved Reading location - IP/workstation name: [email or web address]
[2018-01-10 20:24] VITALS: BP 142/80
--- NOTE | 2018-01-11 00:07 | EKG REPORT ---
SEVERITY:- BORDERLINE ECG - SINUS RHYTHM PROBABLE LEFT ATRIAL ABNORMALITY : Confirmed by: Lupe White MD 11-Jan-2018 00:07:09
== END 2018-01-10 20:44 | disposition home or self-care (01) ==
LOC: ER 13:17
DX: R05 Cough (principal); R06.02 Shortness of breath; R68.83 Chills (without fever); R09.81 Nasal congestion; I10 Essential (primary) hypertension; E11.9 Type 2 diabetes mellitus without complications; R42 Dizziness and giddiness; E89.0 Postprocedural hypothyroidism; Z86.711 Personal history of pulmonary embolism
CPT/HCPCS: 93005; 99284; 96360; 36415; 82553; 82550; 84443; 85025; 80053; 81001; 84484; 71045; 93010; J7030

== ENCOUNTER 2018-02-16 02:13 | Emergency (ER) | payer MEDICARE ==
[2018-02-16 02:40] LABS: ABSOLUTE EOSINOPHILS # (AUTO) 0.1 10^3/uL (0.0-0.6); ABSOLUTE LYMPHOCYTES (AUTO) 1.2 10^3/uL (0.5-4.7); ABSOLUTE MONOCYTES (AUTO) 0.3 10^3/uL (0.1-1.4); ABSOLUTE NEUT (AUTO) 1.5 10^3/uL (1.7-8.2); BASOPHILS % (AUTO) 0.4 % (0-2); EOSINOPHILS % (AUTO) 2.6 % (0-6); HEMATOCRIT 39.3 % (36.0-47.0); LYMPHOCYTES % (AUTO) 39.1 % (13-45); MEAN CORPUSCULAR HEMOGLOBIN 26.3 pg (27.0-33.4); MEAN CORPUSCULAR HGB CONC 33.1 g/dL (32.0-36.0); MEAN CORPUSCULAR VOLUME 80 fl (80-97); MONOCYTES % (AUTO) 9.5 % (3-13); PLATELET COUNT 155 10^3/uL (150-450); RED BLOOD COUNT 4.94 10^6/uL (3.72-5.28); RED CELL DISTRIBUTION WIDTH 14.4 % (11.5-14.0); SEGMENTED NEUTROPHILS % (AUTO) 48.4 % (42-78); TOTAL CELLS COUNTED % (AUTO) 100 %; WHITE BLOOD COUNT 3.1 10^3/uL (4.0-10.5)
[2018-02-16 02:53] LABS: ALANINE AMINOTRANSFERASE 22 U/L (9-52); ALBUMIN 3.5 g/dL (3.5-5.0); ALKALINE PHOSPHATASE 49 U/L (38-126); ANION GAP 5 (5-19); ASPARTATE AMINO TRANSFERASE 18 U/L (14-36); BILIRUBIN,DIRECT 0.4 mg/dL (0.0-0.4); BILIRUBIN,TOTAL 0.5 mg/dL (0.2-1.3); BLOOD UREA NITROGEN 13 mg/dL (7-20); CALCIUM 9.2 mg/dL (8.4-10.2); CARBON DIOXIDE 30 mmol/L (22-30); CHLORIDE 105 mmol/L (98-107); GLUCOSE 188 mg/dL (75-110); SODIUM 140.2 mmol/L (137-145); TOTAL PROTEIN 7.4 g/dL (6.3-8.2)
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
[2018-02-16 05:10] VITALS: BP 161/91
--- NOTE | 2018-02-16 09:30 | EKG REPORT ---
SEVERITY:- ABNORMAL ECG - SINUS RHYTHM FIRST DEGREE AV BLOCK : Confirmed by: Roger Willams 16-Feb-2018 09:29:43
== END 2018-02-16 05:10 | disposition home or self-care (01) ==
LOC: ER 02:13
DX: R00.2 Palpitations (principal); R07.9 Chest pain, unspecified; Z88.5 Allergy status to narcotic agent; F17.200 Nicotine dependence, unspecified, uncomplicated; I48.91 Unspecified atrial fibrillation; E78.00 Pure hypercholesterolemia, unspecified; I10 Essential (primary) hypertension; E11.9 Type 2 diabetes mellitus without complications; E89.0 Postprocedural hypothyroidism
CPT/HCPCS: 36415; 80053; 83735; 84484; 85025; 93005; 93010; 99285

== ENCOUNTER 2018-05-10 16:36 | Emergency (ER) | payer MEDICARE ==
[2018-05-10] MEDS ORDERED: ASPIRIN 81 MG TABLET, CHEWABLE PO ONE (17:56)
[2018-05-10 18:25] LABS: ABSOLUTE EOSINOPHILS # (AUTO) 0.1 10^3/uL (0.0-0.6); ABSOLUTE LYMPHOCYTES (AUTO) 1.6 10^3/uL (0.5-4.7); ABSOLUTE MONOCYTES (AUTO) 0.4 10^3/uL (0.1-1.4); ABSOLUTE NEUT (AUTO) 1.8 10^3/uL (1.7-8.2); BASOPHILS % (AUTO) 1.1 % (0-2); HEMATOCRIT 41.4 % (36.0-47.0); LYMPHOCYTES % (AUTO) 40.8 % (13-45); MEAN CORPUSCULAR HEMOGLOBIN 26.8 pg (27.0-33.4); MEAN CORPUSCULAR HGB CONC 33.9 g/dL (32.0-36.0); MEAN CORPUSCULAR VOLUME 79 fl (80-97); MONOCYTES % (AUTO) 9.3 % (3-13); PLATELET COUNT 173 10^3/uL (150-450); RED BLOOD COUNT 5.24 10^6/uL (3.72-5.28); RED CELL DISTRIBUTION WIDTH 14.5 % (11.5-14.0); SEGMENTED NEUTROPHILS % (AUTO) 45.8 % (42-78); TOTAL CELLS COUNTED % (AUTO) 100 %; WHITE BLOOD COUNT 3.9 10^3/uL (4.0-10.5)
--- NOTE | 2018-05-10 18:26 | ER Document Report ---
ED General - General Chief Complaint: Chest Pain Stated Complaint: CHEST PAIN Time Seen by Provider: 05/10/18 18:23 Mode of Arrival: Stretcher Information source: Patient Notes: 57-year-old female with a history of atrial fibrillation (Eliquis, sotalol, metoprolol), VTE who presents to the emergency room after experiencing chest tightness, palpitations, fast heartbeat and dizziness. Patient currently is wearing an event monitor for similar events. Review of systems positive for fatigue. She states she thinks she overdid it going to the laundry today. This medical history: VTE A. fib TRAVEL OUTSIDE OF THE [place] IN LAST 30 DAYS: No - HPI Onset: Just prior to arrival Onset/Duration: Sudden Quality of pain: No pain Severity: None Pain Level: Denies Associated symptoms: Other - Palpitations. denies: Shortness of breath Exacerbated by: Denies Relieved by: Denies Similar symptoms previously: Yes Recently seen / treated by doctor: Yes - Related Data Allergies/Adverse Reactions: codeine Adverse Reaction (Mild, Verified 05/10/18 16:37) Migraine diazepam [From Valium] Adverse Reaction (Mild, Verified 05/10/18 16:37) PALPITATIONS oxycodone [From Percocet] Adverse Reaction (Mild, Verified 05/10/18 16:37) PALPITATIONS Past Medical History - General Information source: Patient - Social History Smoking Status: Never Smoker Cigarette use (# per day): No Chew tobacco use (# tins/day): No Frequency of alcohol use: None Drug Abuse: None Lives with: Family Family History: Reviewed & Not Pertinent, Hypertension, Malignancy, Other Patient has suicidal ideation: No Patient has homicidal ideation: No - Past Medical History Cardiac Medical History: Reports: Hx Atrial Fibrillation, Hx Hypercholesterolemia, Hx Hypertension, Hx Pulmonary Embolism - Recent and remote Denies: Hx Congestive Heart Failure, Hx Coronary Artery Disease, Hx Heart Attack Pulmonary Medical History: Denies: Hx Asthma, Hx Bronchitis, Hx COPD, Hx Pneumonia, Hx Tuberculosis Neurological Medical History: Denies: Hx Cerebrovascular Accident, Hx Seizures Endocrine Medical History: Reports: Hx Diabetes Mellitus Type 2 Renal/ Medical History: Denies: Hx Peritoneal Dialysis Musculoskeletal Medical History: Denies Hx Arthritis Psychiatric Medical History: Denies: Hx Depression Past Surgical History: Reports: Hx Thyroid Surgery - Thyroidectomy secondary to goiter, Hx Tubal Ligation - Immunizations Hx Diphtheria, Pertussis, Tetanus Vaccination: Yes Review of Systems - Review of Systems Constitutional: denies: Chills, Fever EENT: No symptoms reported Cardiovascular: Palpitations Respiratory: No symptoms reported Gastrointestinal: No symptoms reported Genitourinary: No symptoms reported Female Genitourinary: No symptoms reported Musculoskeletal: No symptoms reported Skin: No symptoms reported Hematologic/Lymphatic: No symptoms reported Neurological/Psychological: No symptoms reported Physical Exam - Vital signs Vitals: Temp Pulse Resp BP Pulse Ox 98.0 F 64 18 140/66 H 98 05/10/18 16:48 05/10/18 16:48 05/10/18 16:48 05/10/18 16:48 05/10/18 16:48 Notes: Physical exam: GENERAL: She is alert and oriented x3, no acute distress, blood pressure is 169/ 85 with a pulse of 71, O2 sat 98% on room air, respiratory rate 12 HEAD: Atraumatic, normocephalic. EYES: Pupils equal round and reactive to light, extraocular movements intact, sclera anicteric, conjunctiva are normal. ENT: TMs normal, nares patent, oropharynx clear without exudates. Moist mucous membranes. NECK: Normal range of motion, supple without obvious mass or JVD. LUNGS: Breath sounds clear to auscultation bilaterally and equal. No wheezes rales or rhonchi. HEART: Regular rate and rhythm without murmurs, rubs or gallops. ABDOMEN: Soft, normoactive bowel sounds. No tenderness to palpation. No guarding, no rebound. No masses appreciated. EXTREMITIES: Normal range of motion, no pitting or edema. No clubbing or cyanosis. NEUROLOGICAL: Cranial nerves II through XII grossly intact. Normal speech, moving all extremities. PSYCH: Normal mood, normal affect. SKIN: Warm, Dry, normal turgor, no rashes or lesions noted. Course - Re-evaluation Re-evalutation: 05/10/18 23:22 Note: Patient observed several hours in the ER. She is remained without any palpitations or tachyarrhythmias. Her heart rate is 60 on the monitor. Her troponins have been negative. We will have her follow-up with primary care doctor. - Vital Signs Vital signs: Temp Pulse Resp BP Pulse Ox 98.0 F 64 13 155/90 H 100 05/10/18 16:48 05/10/18 16:48 05/10/18 22:02 05/10/18 22:02 05/10/18 22:02 - Laboratory Result Diagrams: 05/10/18 18:06 05/10/18 18:06 Laboratory results interpreted by me: 05/10/18 05/10/18 18:06 18:06 WBC 3.9 L MCV 79 L MCH 26.8 L RDW 14.5 H Carbon Dioxide 31 H Glucose 154 H - Diagnostic Test Radiology reviewed: Image reviewed, Reports reviewed - Audio megaly without acute infiltrates Discharge - Discharge Clinical Impression: Palpitations Condition: Stable Disposition: HOME, SELF-CARE Additional Instructions: As we discussed your blood work looked good tonight. Your chest x-ray was clear. The EKG shows normal sinus rhythm with a rate of 67 with no acute changes. You were followed on the heart monitor here in the ER for several hours and it remained normal. Given that your heart rate at baseline is in the 60s, I would not recommend any changes in your medicines. I recommend you following up with both Dr. Willams and Dr. Hardin in [place]. Bring a copy of today's labs with you when you see Dr. Willams. Return to the emergency room for worsening pain, palpitations or any concerns or getting worse. Referrals: HAMILTON ROSARIO PA-C [Primary Care Provider] - Follow up as needed
[2018-05-10] MEDS ORDERED: METFORMIN HCL 500 MG TABLET PO ONE (18:27)
[2018-05-10] MEDS ORDERED: APIXABAN 5 MG TABLET PO ONE (18:27)
[2018-05-10 18:41] LABS: ALANINE AMINOTRANSFERASE 20 U/L (9-52); ALKALINE PHOSPHATASE 61 U/L (38-126); ANION GAP 10 (5-19); ASPARTATE AMINO TRANSFERASE 19 U/L (14-36); BILIRUBIN,DIRECT 0.3 mg/dL (0.0-0.4); BILIRUBIN,TOTAL 0.6 mg/dL (0.2-1.3); BLOOD UREA NITROGEN 16 mg/dL (7-20); CALCIUM 9.6 mg/dL (8.4-10.2); CARBON DIOXIDE 31 mmol/L (22-30); CHLORIDE 99 mmol/L (98-107); CREATINE KINASE 47 U/L (30-135); GLUCOSE 154 mg/dL (75-110); POTASSIUM 4.1 mmol/L (3.6-5.0); SODIUM 139.6 mmol/L (137-145); TOTAL PROTEIN 8.1 g/dL (6.3-8.2)
[2018-05-10 18:52] LABS: CREATINE KINASE MB 0.37 ng/mL (<4.55)
[2018-05-10 18:55] LABS: TROPONIN I < 0.012 ng/mL
--- NOTE | 2018-05-10 19:10 | RADIOLOGY REPORT (SQ) ---
EXAM DESCRIPTION: CHEST SINGLE VIEW COMPLETED DATE/TIME: 05/10/2018 7:02 pm REASON FOR STUDY: cp COMPARISON: 12/15/2017 EXAM PARAMETERS: NUMBER OF VIEWS: One view. TECHNIQUE: Single frontal radiographic view of the chest acquired. RADIATION DOSE: NA LIMITATIONS: None. FINDINGS: LUNGS AND PLEURA: No opacities, masses or pneumothorax. No pleural effusion. MEDIASTINUM AND HILAR STRUCTURES: No masses. Contour normal. HEART AND VASCULAR STRUCTURES: Cardiomegaly. BONES: No acute findings. HARDWARE: None in the chest. OTHER: No other significant finding. IMPRESSION: Cardiomegaly without acute abnormality of the lungs in AP projection. TECHNICAL DOCUMENTATION: JOB ID: [id number] [employer]- All Rights Reserved Reading location - IP/workstation name: [email or web address]
[2018-05-10 23:40] VITALS: BP 137/83
--- NOTE | 2018-05-11 10:44 | EKG REPORT ---
SEVERITY:- BORDERLINE ECG - SINUS RHYTHM PROBABLE LEFT ATRIAL ABNORMALITY : Confirmed by: Roger Willams 11-May-2018 10:43:35
== END 2018-05-10 23:44 | disposition home or self-care (01) ==
LOC: ER 16:36
DX: R00.2 Palpitations (principal); R07.89 Other chest pain; R42 Dizziness and giddiness; R53.83 Other fatigue; I11.9 Hypertensive heart disease without heart failure; E89.0 Postprocedural hypothyroidism; E11.9 Type 2 diabetes mellitus without complications; I48.91 Unspecified atrial fibrillation; Z79.01 Long term (current) use of anticoagulants; Z79.899 Other long term (current) drug therapy
CPT/HCPCS: 93005; 99285; 36415; 82553; 82550; 85025; 80053; 84484; 71045; 93010; A9270 ×3

== ENCOUNTER 2018-05-11 23:22 | Emergency (ER) | payer MEDICARE ==
[2018-05-11 23:47] LABS: HEMATOCRIT 41.5 % (36.0-47.0); HEMOGLOBIN 13.8 g/dL (12.0-15.5); MEAN CORPUSCULAR HEMOGLOBIN 26.4 pg (27.0-33.4); MEAN CORPUSCULAR HGB CONC 33.3 g/dL (32.0-36.0); MEAN CORPUSCULAR VOLUME 79 fl (80-97); PLATELET COUNT 149 10^3/uL (150-450); RED BLOOD COUNT 5.23 10^6/uL (3.72-5.28); RED CELL DISTRIBUTION WIDTH 14.4 % (11.5-14.0); WHITE BLOOD COUNT 3.8 10^3/uL (4.0-10.5)
--- NOTE | 2018-05-12 00:01 | RADIOLOGY REPORT (SQ) ---
EXAM DESCRIPTION: XR CHEST 1 VIEW COMPLETED DATE/TME: 05/11/2018 23:31 CLINICAL HISTORY: 57 years Female, cp COMPARISON:05/10/2018 NUMBER OF VIEWS/TECHNIQUE: 1/AP FINDINGS: Adequate lung volume, clear parenchyma, normal cardiac silhouette, and intact bony thorax. IMPRESSION: No acute cardiopulmonary findings.
--- NOTE | 2018-05-12 00:01 | EKG REPORT ---
SEVERITY:- BORDERLINE ECG - SINUS RHYTHM PROBABLE LEFT ATRIAL ABNORMALITY : Confirmed by: Roger Willams 12-May-2018 00:00:38
[2018-05-12 00:52] LABS: ANION GAP 13 (5-19); BLOOD UREA NITROGEN 21 mg/dL (7-20); CALCIUM 9.7 mg/dL (8.4-10.2); CARBON DIOXIDE 25 mmol/L (22-30); CHLORIDE 104 mmol/L (98-107); GLUCOSE 208 mg/dL (75-110); POTASSIUM 4.2 mmol/L (3.6-5.0); SODIUM 141.6 mmol/L (137-145)
[2018-05-12] MEDS ORDERED: LIDOCAINE 5% (700 MG) TRANSDERMAL ADH..PATCH TP ONE (00:53)
[2018-05-12] MEDS ORDERED: KETOROLAC TROMETHAMINE INJ/PF 30 MG/1 ML SDV IV ONE (00:53)
[2018-05-12] MEDS ORDERED: MORPHINE SULFATE 10 MG/ML INJ IV PRN (00:53)
--- NOTE | 2018-05-12 00:56 | ER Document Report ---
ED General - General Chief Complaint: Shoulder Pain Stated Complaint: LEFT SHOULDER/ ARM PAIN Time Seen by Provider: 05/11/18 23:31 Notes: Patient is a 57-year old female with a past medical history of hypertension, morbid obesity, hyperlipidemia, presents with 24 hours of progressively worsening left shoulder pain. She states that it is a throbbing, severe, constant pain to the left shoulder intermittently radiating into her left chest. She reports that the pain is dramatically worsened by any attempt at moving the left shoulder. She states that the pain started gradually and has gotten progressively worse without any clear exacerbating factor other than moving her arm. She denies any history of similar pain in the past although reports he has dislocated the shoulder in the past. She has not seen her primary care physician regarding today's concerns. She denies any associated shortness of breath, nausea, vomiting or diaphoresis. TRAVEL OUTSIDE OF THE [place] IN LAST 30 DAYS: No - Related Data Allergies/Adverse Reactions: codeine Adverse Reaction (Mild, Verified 05/10/18 16:37) Migraine diazepam [From Valium] Adverse Reaction (Mild, Verified 05/10/18 16:37) PALPITATIONS oxycodone [From Percocet] Adverse Reaction (Mild, Verified 05/10/18 16:37) PALPITATIONS Past Medical History - General Information source: Patient - Social History Smoking Status: Never Smoker Frequency of alcohol use: None Drug Abuse: None Lives with: Spouse/Significant other Family History: Reviewed & Not Pertinent, Hypertension, Malignancy, Other Patient has suicidal ideation: No Patient has homicidal ideation: No - Past Medical History Cardiac Medical History: Reports: Hx Atrial Fibrillation, Hx Hypercholesterolemia, Hx Hypertension, Hx Pulmonary Embolism - Recent and remote Denies: Hx Congestive Heart Failure, Hx Coronary Artery Disease, Hx Heart Attack Pulmonary Medical History: Denies: Hx Asthma, Hx Bronchitis, Hx COPD, Hx Pneumonia, Hx Tuberculosis Neurological Medical History: Denies: Hx Cerebrovascular Accident, Hx Seizures Endocrine Medical History: Reports: Hx Diabetes Mellitus Type 2 Renal/ Medical History: Denies: Hx Peritoneal Dialysis Musculoskeletal Medical History: Denies Hx Arthritis Psychiatric Medical History: Denies: Hx Depression Past Surgical History: Reports: Hx Thyroid Surgery - Thyroidectomy secondary to goiter, Hx Tubal Ligation - Immunizations Hx Diphtheria, Pertussis, Tetanus Vaccination: Yes Review of Systems - Review of Systems Notes: Constitutional: Negative for fever. HENT: Negative for sore throat. Eyes: Negative for visual changes. Cardiovascular: Negative for chest pain. Respiratory: Negative for shortness of breath. Gastrointestinal: Negative for abdominal pain, vomiting or diarrhea. Genitourinary: Negative for dysuria. Musculoskeletal: Positive for left shoulder pain Skin: Negative for rash. Neurological: Negative for headaches, weakness or numbness. 10 point ROS negative except as marked above and in HPI. Physical Exam - Vital signs Vitals: Resp 23 H 05/11/18 23:34 Interpretation: Normal Notes: PHYSICAL EXAMINATION: GENERAL: Appears to be in pain but no acute distress HEAD: Atraumatic, normocephalic. EYES: Pupils equal round and reactive to light, extraocular movements intact, sclera anicteric, conjunctiva are normal. ENT: nares patent, oropharynx clear without exudates. Moist mucous membranes. NECK: Normal range of motion, supple without lymphadenopathy LUNGS: Breath sounds clear to auscultation bilaterally and equal. No wheezes rales or rhonchi. HEART: Regular rate and rhythm without murmurs ABDOMEN: Soft, morbidly obese abdomen, nontender, normoactive bowel sounds. No guarding, no rebound. No masses appreciated. EXTREMITIES: Exquisite pain on palpation of the deltoid region. Patient unwilling to perform range of motion testing due to pain. RMU motor and sensory dissipation is intact bilaterally including against resistance on motor testing. No pitting or edema. No cyanosis. NEUROLOGICAL: No focal neurological deficits. Moves all extremities spontaneously and on command. PSYCH: Normal mood, normal affect. SKIN: Warm, Dry, normal turgor, no rashes or lesions noted. Course - Re-evaluation Re-evalutation: 05/12/18 00:55 Patient presents with isolated left shoulder pain with exquisite pain with any movement of the left shoulder. She states that the pain does radiate somewhat into her chest although her clinical history is not consistent with a cardiac source. Chest x-ray, cardiac marker, EKG unremarkable. Patient was seen yesterday for chest discomfort had 2- markers at that time as well. The patient is very clear to state that the pain is isolated into the left shoulder , prevents her from being able to move the shoulder and does have exquisite palpable pain on palpation of the shoulder. A bedside ultrasound does not show any evidence of a joint effusion to suggest a septic joint. There is no surrounding erythema or warmth to the joint to suggest localized cellulitis. X- ray pending to definitively exclude any evidence of fracture or dislocation for which I have low clinical suspicion given the history. 05/12/18 02:23 X-ray does demonstrate an osteophyte possibly causing rotator cuff and impingement but no other acute findings. Patient's pain is improved. At this time will discharge with return precautions and follow-up recommendations. Verbal discharge instructions given a the bedside and opportunity for questions given. Medication warnings reviewed. Patient is in agreement with this plan and has verbalized understanding of return precautions and the need for primary care follow-up in the next 24-72 hours. - Vital Signs Vital signs: Temp Pulse Resp BP Pulse Ox 25 H 167/86 H 100 05/12/18 01:00 05/12/18 00:01 05/12/18 00:01 - Laboratory Result Diagrams: 05/11/18 23:37 05/11/18 23:37 Laboratory results interpreted by me: 05/11/18 05/11/18 23:37 23:37 WBC 3.8 L MCV 79 L MCH 26.4 L RDW 14.4 H Plt Count 149 L BUN 21 H Glucose 208 H - Diagnostic Test Radiology reviewed: Image reviewed, Reports reviewed Radiology results interpreted by me: 05/12/18 02:27 Left shoulder x-ray: No acute fracture or dislocation Discharge - Discharge Clinical Impression: Chest discomfort Left shoulder pain Qualifiers: Chronicity: acute Qualified Code(s): M25.512 - Pain in left shoulder Condition: Good Disposition: HOME, SELF-CARE Additional Instructions: Your x-ray does not show any acute fracture today. It does show a possible osteophyte which could be causing impingement on your rotator cuff and could explain your pain. You will need to follow-up with orthopedic surgery regarding your shoulder pain. For your pain: Take ibuprofen 600 mg and acetaminophen 1000 mg every 6 hours together as needed for pain. If this does not control your pain you may take 15 mg of oral morphine every 4 hours as needed. Please be very careful about using the oral morphine and only use this for severe pain. Continue to apply ice to the area is much your able. Please return immediately if you develop weakness, numbness, spreading redness from the area, or any other symptoms that are concerning to you. Prescriptions: Morphine Sulfate [Morphine Ir 15 mg Tablet] 15 mg PO TID PRN #8 tablet PRN Reason: Referrals: MAKSIM CHENG MD [Primary Care Provider] - Follow up as needed SMITH GONZALES MD [ACTIVE STAFF] - Follow up as needed
--- NOTE | 2018-05-12 01:35 | RADIOLOGY REPORT (SQ) ---
EXAM DESCRIPTION: XR LEFT SHOULDER 2 OR MORE VIEWS COMPLETED DATE/TME: 05/12/2018 00:53 CLINICAL HISTORY: 57 years, Female, pain COMPARISON: None. NUMBER OF VIEWS: TECHNIQUE: LIMITATIONS: None. FINDINGS: There is an osteophyte projecting inferiorly from the acromion. No fracture or dislocation. The acromioclavicular joint appears intact. There are no soft tissue calcifications. IMPRESSION: Osteophyte projecting inferiorly from the acromion. This could potentially cause impingement on the rotator cuff. copyright 2010 [employer]- All Rights Reserved
[2018-05-12] MEDS ORDERED: LIDOCAINE 5% (700 MG) TRANSDERMAL ADH..PATCH ONE (02:17)
[2018-05-12 02:31] VITALS: BP 137/74
== END 2018-05-12 03:00 | disposition home or self-care (01) ==
LOC: ER 23:22
DX: M25.512 Pain in left shoulder (principal); M79.602 Pain in left arm; R07.9 Chest pain, unspecified; I10 Essential (primary) hypertension; E66.01 Morbid (severe) obesity due to excess calories; I48.91 Unspecified atrial fibrillation; E11.9 Type 2 diabetes mellitus without complications; E78.00 Pure hypercholesterolemia, unspecified; Z86.711 Personal history of pulmonary embolism; Z98.51 Tubal ligation status
CPT/HCPCS: 93005; 99284; 96374; 96375; 36415; 85027; 80048; 84484; 71045; 73030; 93010; J1885; J2270

== ENCOUNTER → 2018-05-14 | Outpatient (CLI) | payer MEDICARE ==
[2018-05-14 11:59] LABS: ABSOLUTE EOSINOPHILS # (AUTO) 0.1 10^3/uL (0.0-0.6); ABSOLUTE LYMPHOCYTES (AUTO) 1.1 10^3/uL (0.5-4.7); ABSOLUTE MONOCYTES (AUTO) 0.3 10^3/uL (0.1-1.4); ABSOLUTE NEUT (AUTO) 1.5 10^3/uL (1.7-8.2); BASOPHILS % (AUTO) 0.4 % (0-2); EOSINOPHILS % (AUTO) 2.4 % (0-6); HEMATOCRIT 39.9 % (36.0-47.0); HEMOGLOBIN 13.4 g/dL (12.0-15.5); LYMPHOCYTES % (AUTO) 37.2 % (13-45); MEAN CORPUSCULAR HEMOGLOBIN 26.9 pg (27.0-33.4); MEAN CORPUSCULAR HGB CONC 33.7 g/dL (32.0-36.0); MEAN CORPUSCULAR VOLUME 80 fl (80-97); MONOCYTES % (AUTO) 9.2 % (3-13); PLATELET COUNT 158 10^3/uL (150-450); RED BLOOD COUNT 4.99 10^6/uL (3.72-5.28); RED CELL DISTRIBUTION WIDTH 14.7 % (11.5-14.0); SEGMENTED NEUTROPHILS % (AUTO) 50.8 % (42-78); TOTAL CELLS COUNTED % (AUTO) 100 %; WHITE BLOOD COUNT 2.9 10^3/uL (4.0-10.5)
[2018-05-14 12:39] LABS: ERYTHROCYTE SEDIMENTATION RATE 44 mm/hr (0-30)
== END ==
LOC: OD 10:49
PROVIDERS: ATTEND Orthopaedic Surgery
DX: M25.50 Pain in unspecified joint (principal); M75.122 Complete rotator cuff tear or rupture of left shoulder, not specified as traumatic; M00.9 Pyogenic arthritis, unspecified
CPT/HCPCS: 36415; 85025; 85652; 86141

== ENCOUNTER 2018-12-05 14:03 | Emergency (ER) | payer MEDICARE ==
--- NOTE | 2018-12-05 14:32 | ER Document Report ---
ED Medical Screen (RME) - General Chief Complaint: Dizziness Stated Complaint: DIZZINESS Time Seen by Provider: 12/05/18 14:23 Primary Care Provider: CECELIA PALACIOS MD [Primary Care Provider] - Follow up as needed Mode of Arrival: Medic Information source: Patient Notes: Patient is a 58-year-old female presented to the emergency department chief complaint of dizziness and palpitations have been ongoing for approximately 2 to 3 days. Patient denies any chest pain but reports an occasional chest pressure when she has the palpitations. She also reports history of vertigo, states she has tried taking meclizine but this has not helped her dizziness. Patient denies any shortness of breath, fever, nausea, vomiting or chills. Exam: Heart sounds S1-S2 present with no ectopy noted. Lung sounds clear and equal bilaterally. I have greeted and performed a rapid initial assessment of this patient. A comprehensive ED assessment and evaluation of the patient, analysis of test results and completion of the medical decision making process will be conducted by additional ED providers. I have specifically instructed the patient or family members with the patient to immediately return to any nursing staff should anything change in the patient's condition or with their chief complaint. This medical record was dictated with voice recognizing software. There may be grammatical, syntax errors that are unintended. TRAVEL OUTSIDE OF THE [place] IN LAST 30 DAYS: No - Related Data Allergies/Adverse Reactions: codeine Adverse Reaction (Mild, Verified 12/05/18 14:03) Migraine diazepam [From Valium] Adverse Reaction (Mild, Verified 12/05/18 14:03) PALPITATIONS oxycodone [From Percocet] Adverse Reaction (Mild, Verified 12/05/18 14:03) PALPITATIONS Past Medical History - Social History Chew tobacco use (# tins/day): No Frequency of alcohol use: None Drug Abuse: None - Past Medical History Cardiac Medical History: Reports: Hx Atrial Fibrillation, Hx Hypercholesterolemia, Hx Hypertension, Hx Pulmonary Embolism - Recent and remote Denies: Hx Congestive Heart Failure, Hx Coronary Artery Disease, Hx Heart Attack Pulmonary Medical History: Denies: Hx Asthma, Hx Bronchitis, Hx COPD, Hx Pneumonia, Hx Tuberculosis Neurological Medical History: Denies: Hx Cerebrovascular Accident, Hx Seizures Endocrine Medical History: Reports: Hx Diabetes Mellitus Type 2 Renal/ Medical History: Denies: Hx Peritoneal Dialysis Musculoskeltal Medical History: Denies Hx Arthritis Psychiatric Medical History: Denies: Hx Depression Past Surgical History: Reports: Hx Cardiac Catheterization - jul 2018, Hx Thyroid Surgery - Thyroidectomy secondary to goiter, Hx Tubal Ligation - Immunizations Hx Diphtheria, Pertussis, Tetanus Vaccination: Yes Physical Exam - Vital signs Vitals: Temp Pulse Resp BP Pulse Ox 97.8 F 67 16 133/72 H 98 12/05/18 14:12 12/05/18 14:12 12/05/18 14:12 12/05/18 14:12 12/05/18 14:12 Course - Vital Signs Vital signs: Temp Pulse Resp BP Pulse Ox 97.8 F 67 16 133/72 H 98 12/05/18 14:12 12/05/18 14:12 12/05/18 14:12 12/05/18 14:12 12/05/18 14:12 Doctor's Discharge - Discharge Referrals: CECELIA PALACIOS MD [Primary Care Provider] - Follow up as needed
[2018-12-05 15:08] LABS: ABSOLUTE EOSINOPHILS # (AUTO) 0.1 10^3/uL (0.0-0.6); ABSOLUTE MONOCYTES (AUTO) 0.2 10^3/uL (0.1-1.4); ABSOLUTE NEUT (AUTO) 1.7 10^3/uL (1.7-8.2); EOSINOPHILS % (AUTO) 1.9 % (0-6); HEMATOCRIT 38.7 % (36.0-47.0); HEMOGLOBIN 12.8 g/dL (12.0-15.5); LYMPHOCYTES % (AUTO) 31.7 % (13-45); MEAN CORPUSCULAR HEMOGLOBIN 26.2 pg (27.0-33.4); MEAN CORPUSCULAR HGB CONC 33.1 g/dL (32.0-36.0); MEAN CORPUSCULAR VOLUME 79 fl (80-97); MONOCYTES % (AUTO) 7.9 % (3-13); PLATELET COUNT 161 10^3/uL (150-450); RED BLOOD COUNT 4.89 10^6/uL (3.72-5.28); RED CELL DISTRIBUTION WIDTH 15.6 % (11.5-14.0); SEGMENTED NEUTROPHILS % (AUTO) 57.5 % (42-78); TOTAL CELLS COUNTED % (AUTO) 100 %
[2018-12-05 15:26] LABS: ALANINE AMINOTRANSFERASE 23 U/L (9-52); ALBUMIN 3.6 g/dL (3.5-5.0); ALKALINE PHOSPHATASE 57 U/L (38-126); ANION GAP 8 (5-19); ASPARTATE AMINO TRANSFERASE 26 U/L (14-36); BILIRUBIN,DIRECT 0.2 mg/dL (0.0-0.4); BILIRUBIN,TOTAL 0.5 mg/dL (0.2-1.3); BLOOD UREA NITROGEN 16 mg/dL (7-20); CALCIUM 9.1 mg/dL (8.4-10.2); CARBON DIOXIDE 30 mmol/L (22-30); CHLORIDE 101 mmol/L (98-107); GLUCOSE 178 mg/dL (75-110); SODIUM 138.7 mmol/L (137-145); TOTAL PROTEIN 7.7 g/dL (6.3-8.2)
--- NOTE | 2018-12-05 15:56 | RADIOLOGY REPORT (SQ) ---
EXAM DESCRIPTION: CHEST SINGLE VIEW COMPLETED DATE/TIME: 12/05/2018 3:37 pm REASON FOR STUDY: palpitations, chest pain COMPARISON: 05/11/2018 EXAM PARAMETERS: NUMBER OF VIEWS: One view. TECHNIQUE: Single frontal radiographic view of the chest acquired. RADIATION DOSE: NA LIMITATIONS: None. FINDINGS: LUNGS AND PLEURA: No opacities, masses or pneumothorax. No pleural effusion. MEDIASTINUM AND HILAR STRUCTURES: No masses. Contour normal. HEART AND VASCULAR STRUCTURES: Cardiomegaly. BONES: No acute findings. HARDWARE: None in the chest. OTHER: No other significant finding. IMPRESSION: Cardiomegaly without acute abnormality of the lungs in frontal projection TECHNICAL DOCUMENTATION: JOB ID: [id number] [employer]- All Rights Reserved Reading location - IP/workstation name: [email or web address]
--- NOTE | 2018-12-05 18:37 | ER Document Report ---
ED General - General Mode of Arrival: Medic TRAVEL OUTSIDE OF THE [place] IN LAST 30 DAYS: No <SALMA MOLINA - Last Filed: 12/05/18 20:20> <SHRUTI ALARCON - Last Filed: 12/05/18 22:37> <KASSANDRA HENRY - Last Filed: 12/06/18 14:52> - General Chief Complaint: Dizziness Stated Complaint: DIZZINESS Time Seen by Provider: 12/05/18 14:23 Primary Care Provider: CECELIA PALACIOS MD [Primary Care Provider] - Follow up in 3-5 days Notes: 58-year-old female with history of paroxysmal atrial fibrillation, hypothyroidism status post partial thyroidectomy, pulmonary embolism a couple years ago on Eliquis currently, congestive heart failure presents to the emergency department chief complaint of dizziness and palpitations have been ongoing for approximately 2 to 3 days sent over from [facility] after patient had an episode of dizziness, slurred speech. Patient denies any chest pain but reports an occasional chest pressure when she has the palpitations. She also reports history of vertigo, states she has tried taking meclizine but this has not helped her dizziness. Patient also said that she had some right- sided weakness in the doctor's office today. Patient denies any shortness of breath, fever, nausea, vomiting or chills. (SALMA MOLINA) - Related Data Allergies/Adverse Reactions: codeine Adverse Reaction (Mild, Verified 12/05/18 14:03) Migraine diazepam [From Valium] Adverse Reaction (Mild, Verified 12/05/18 14:03) PALPITATIONS oxycodone [From Percocet] Adverse Reaction (Mild, Verified 12/05/18 14:03) PALPITATIONS Past Medical History - General Information source: Patient - Social History Smoking Status: Unknown if Ever Smoked Chew tobacco use (# tins/day): No Frequency of alcohol use: None Drug Abuse: None Family History: Reviewed & Not Pertinent, Hypertension, Malignancy, Other Patient has suicidal ideation: No Patient has homicidal ideation: No - Past Medical History Cardiac Medical History: Reports: Hx Atrial Fibrillation, Hx Hypercholesterolemia, Hx Hypertension, Hx Pulmonary Embolism - Recent and remote Denies: Hx Congestive Heart Failure, Hx Coronary Artery Disease, Hx Heart Attack Pulmonary Medical History: Denies: Hx Asthma, Hx Bronchitis, Hx COPD, Hx Pneumonia, Hx Tuberculosis Neurological Medical History: Denies: Hx Cerebrovascular Accident, Hx Seizures Endocrine Medical History: Reports: Hx Diabetes Mellitus Type 2 Renal/ Medical History: Denies: Hx Peritoneal Dialysis Musculoskeletal Medical History: Denies Hx Arthritis Psychiatric Medical History: Denies: Hx Depression Past Surgical History: Reports: Hx Cardiac Catheterization - jul 2018, Hx Thyroid Surgery - Thyroidectomy secondary to goiter, Hx Tubal Ligation - Immunizations Hx Diphtheria, Pertussis, Tetanus Vaccination: Yes <SALMA MOLINA - Last Filed: 12/05/18 20:20> Review of Systems - Review of Systems Constitutional: See HPI EENT: No symptoms reported Cardiovascular: See HPI Respiratory: See HPI Gastrointestinal: See HPI Genitourinary: No symptoms reported Female Genitourinary: No symptoms reported Musculoskeletal: No symptoms reported Skin: No symptoms reported Hematologic/Lymphatic: No symptoms reported Neurological/Psychological: See HPI <SALMA MOLINA - Last Filed: 12/05/18 20:20> Physical Exam <SALMA MOLINA - Last Filed: 12/05/18 20:20> - Vital signs Vitals: Pulse Resp BP Pulse Ox 78 16 161/91 H 100 12/05/18 14:10 12/05/18 14:10 12/05/18 14:10 12/05/18 14:10 - Notes Notes: PHYSICAL EXAMINATION: Reviewed vital signs and charting by RN GENERAL: Alert, interacts well. No acute distress. HEAD: Normocephalic, atraumatic. EYES: Pupils equal and round. Extraocular movements intact. ENT: Oral mucosa moist, tongue midline. NECK: Full range of motion. Trachea midline. LUNGS: Clear to auscultation bilaterally, no wheezes, rales, or rhonchi. No respiratory distress. HEART: Regular rate and rhythm. No murmur ABDOMEN: soft, non-tender. No distention. Bowel sounds present EXTREMITIES: Moves all 4 extremities spontaneously. Patient with no clear pronator drift but did have mild right arm weakness that started falling when I asked her to hold them steady. Curb Attendant strength 4/5 right arm, 5/5 left arm NEURO: A &O X 3, normal speech, PERRL, EOMI, SILT, follows commands in all 4 extremities, no gross abnormalities of cranial nerves, no focal neuro deficits PSYCH: Normal affect, normal mood. SKIN: Warm, dry, normal turgor. No rashes or lesions noted. (SALMA MOLINA) Course - Laboratory Result Diagrams: 12/05/18 14:39 12/05/18 14:39 <SALMA MOLINA - Last Filed: 12/05/18 20:20> - Laboratory Result Diagrams: 12/05/18 14:39 12/05/18 14:39 <SHRUTI ALARCON - Last Filed: 12/05/18 22:37> - Laboratory Result Diagrams: 12/05/18 14:39 12/05/18 14:39 - Diagnostic Test Radiology reviewed: Image reviewed, Reports reviewed <KASSANDRA HENRY - Last Filed: 12/06/18 14:52> - Re-evaluation Re-evalutation: 12/05/18 18:37 Patient overall well-appearing and comfortable in bed. Her speech was slow but there is no obvious slurred speech and she states she did have some slurred speech and right-sided weakness in the doctor's office which puts her last known normal at approximately 1 PM today. I have ordered a CT head. Blood work un remarkable except for a white blood cell count of 3000. 12/05/18 19:05 CT had showed no evidence of acute stroke/intracranial bleed/pathology. Performed an NIH stroke scale with a score of 0. Patient does have some ataxia. Patient does have history of vertigo so I am going to give her meclizine 50 mg p.o. once. Briefly discussed with attending physician and plan is to move forward with MRI brain with and without. MRI brain is overall negative patient will be stable for discharge with close follow-up with her primary provider on Saturday morning. 12/05/18 20:17 Warm bedside handoff completed with NICOLE Tomas. Patient is sitting comfortably in the room. Ativan 1 mg IV ordered as patient is claustrophobic and is requesting sedation. (SALMA MOLINA) 12/05/18 21:23 Patient was seen and examined as requested by [facility]. Ms. Morris is a 58-year-old female that presents with dizziness, weakness. NIH was performed and 0. Patient describes her dizziness as the sensation of the room moving. She states that she has been trying to take her meclizine without relief. She denies any ear pain, ear ringing. CT of the head was obtained and showed no evidence of acute stroke. Because of the patient's persistent dizziness an MRI will be obtained. PHYSICAL EXAMINATION: GENERAL: Well-appearing, well-nourished and in no acute distress. HEAD: Atraumatic, normocephalic. EYES: Pupils equal round and reactive to light, extraocular movements intact, conjunctiva are normal. ENT: Nares patent, oropharynx clear without exudates. Moist mucous membranes. NECK: Normal range of motion, supple without lymphadenopathy LUNGS: Breath sounds clear to auscultation bilaterally and equal. No wheezes rales or rhonchi. HEART: Regular rate and rhythm without murmurs ABDOMEN: Soft, nontender, nondistended abdomen. No guarding, no rebound. No masses appreciated. Female : deferred Musculoskeletal: Normal range of motion, no pitting or edema. No cyanosis. NEUROLOGICAL: Mental status; alert and oriented x3. Cranial nerves II through XII intact. Sensation intact to sharp/dull differentiation in all extremities. Motor; normal tone. No abnormal movements appreciated. No pronator drift. Strength tested and 5/5 in bilateral wrist flexion/extension, elbow flexion/extension, shoulder abduction, straight leg raise, knee flexion/extension, ankle dorsiflexion/plantar flexion. Patient ambulates with a steady gait.Coordination; no ataxia. Finger to nose and heel to son testing intact bilaterally. Reflexes; brachial radialis, biceps, and patellar reflexes within normal limits and symmetric bilaterally. Babinski with downgoing toes bilaterally. NIH 0 PSYCH: Normal mood, normal affect. SKIN: Warm, Dry, normal turgor, no rashes or lesions noted. 12/06/18 14:52 Chest X-Ray 12/05/18 14:29 IMPRESSION: Cardiomegaly without acute abnormality of the lungs in frontal projection Head CT 12/05/18 18:31 IMPRESSION: NORMAL BRAIN CT WITHOUT CONTRAST. EVIDENCE OF ACUTE STROKE: NO. Head MRI 12/05/18 19:03 IMPRESSION: 1. Normal noncontrast MRI of the brain. (KASSANDRA HENRY) - Vital Signs Vital signs: Temp Pulse Resp BP Pulse Ox 98 F 70 16 129/79 H 98 12/05/18 22:48 12/05/18 22:48 12/05/18 22:48 12/05/18 22:48 12/05/18 22:48 - Laboratory Laboratory results interpreted by me: 12/05/18 12/05/18 14:39 14:39 WBC 3.0 L MCV 79 L MCH 26.2 L RDW 15.6 H Glucose 178 H Discharge <TRACYSALMA - Last Filed: 12/05/18 20:20> <SHRUTI ALARCON - Last Filed: 12/05/18 22:37> <KASSANDRA HENRY - Last Filed: 12/06/18 14:52> - Discharge Clinical Impression: Dizziness, Ataxia Condition: Stable Disposition: HOME, SELF-CARE Additional Instructions: The MRI of the brain is normal. Your dizziness and sense of imbalance are most likely a problem of the inner ear. Take the meclizine dose as prescribed, take the diazepam as needed for motion sickness/dizziness, follow-up with your primary care provider for additional management. Return if you worsen including fever, vomiting, severe headache, or any other concerning or worsening symptoms. Prescriptions: Diazepam [Valium 5 mg Tablet] 1 - 2 tab PO TID PRN #15 tablet PRN Reason: Meclizine HCl [Antivert 25 mg Tablet] 50 mg PO BID #20 tablet Referrals: CECELIA PALACIOS MD [Primary Care Provider] - Follow up in 3-5 days
--- NOTE | 2018-12-05 18:59 | RADIOLOGY REPORT (SQ) ---
EXAM DESCRIPTION: CT HEAD WITHOUT COMPLETED DATE/TIME: 12/05/2018 6:48 pm REASON FOR STUDY: slurred speech/dizziness COMPARISON: 10/08/2017 TECHNIQUE: Axial images acquired through the brain without intravenous contrast. Images reviewed wi th bone, brain and subdural windows. Additional sagittal and coronal reconstructions were generated. Images stored on PACS. All CT scanners at this facility use dose modulation, iterative reconstruction, and/or weight based d osing when appropriate to reduce radiation dose to as low as reasonably achievable (ALARA). [facility]: Dose Right [facility]: CareDose [facility]: Dose Right [facility]: Teradose 4D [facility]: Smart Aloqa RADIATION DOSE: CT Rad equipment meets quality standard of care and radiation dose reduction techniq ues were employed. CTDIvol: 53.2 mGy. DLP: 964 mGy-cm. mGy. LIMITATIONS: None. FINDINGS: VENTRICLES: Normal size and contour. CEREBRUM: No masses. No hemorrhage. No midline shift. No evidence for acute infarction. Normal gra y/white matter differentiation. No areas of low density in the white matter. CEREBELLUM: No masses. No hemorrhage. No alteration of density. No evidence for acute infarction. EXTRAAXIAL SPACES: No fluid collections. No masses. ORBITS AND GLOBE: No intra- or extraconal masses. Normal contour of globe without masses. CALVARIUM: No fracture. PARANASAL SINUSES: No fluid or mucosal thickening. SOFT TISSUES: No mass or hematoma. OTHER: No other significant finding. IMPRESSION: NORMAL BRAIN CT WITHOUT CONTRAST. EVIDENCE OF ACUTE STROKE: NO. COMMENT: Quality ID # [id number]: Final reports with documentation of one or more dose reduction techniques (e.g., Automated exposure control, adjustment of the mA and/or kV according to patient size, use of iterative reconstruction technique) TECHNICAL DOCUMENTATION: JOB ID: [id number] [employer]- All Rights Reserved Reading location - IP/workstation name: [email or web address]
[2018-12-05] MEDS ORDERED: MECLIZINE HCL 25 MG TABLET PO ONE (19:04)
[2018-12-05] MEDS ORDERED: LORAZEPAM INJ 2 MG/1 ML VIAL IV ONE (20:17)
--- NOTE | 2018-12-05 21:55 | RADIOLOGY REPORT (SQ) ---
EXAM DESCRIPTION: [facility]Lex: MR BRAIN WITHOUT IV CONTRAST CLINICAL HISTORY: 58 years Female; ataxia TECHNIQUE: Routine noncontrast MRI brain protocol COMPARISON: CT 12/05/2018 FINDINGS: No diffusion restriction. Hahn matter, white matter, ventricles, and cisterns are normal. No midline shift or mass-effect. No hemosiderin deposition. No focal brainstem or cerebellar lesions. Calvarial marrow is normal. Paranasal sinuses and mastoid air cells are clear. Normal flow-voids are seen in the major intracranial arteries. IMPRESSION: 1. Normal noncontrast MRI of the brain.
[2018-12-05 22:50] VITALS: BP 129/79
--- NOTE | 2018-12-06 19:20 | EKG REPORT ---
SEVERITY:- BORDERLINE ECG - SINUS RHYTHM CONSIDER ANTERIOR INFARCT : Confirmed by: Roger Willams 06-Dec-2018 19:20:05
== END 2018-12-05 22:51 | disposition home or self-care (01) ==
LOC: ER 14:03
DX: R42 Dizziness and giddiness (principal); R07.89 Other chest pain; R00.2 Palpitations; R53.1 Weakness; F40.240 Claustrophobia; I11.9 Hypertensive heart disease without heart failure; E11.9 Type 2 diabetes mellitus without complications; E89.0 Postprocedural hypothyroidism; I48.0 Paroxysmal atrial fibrillation; Z79.02 Long term (current) use of antithrombotics/antiplatelets; Z86.711 Personal history of pulmonary embolism
CPT/HCPCS: 93005; 99285; 96374; 36415; 85025; 80053; 84484; 70551; 71045; 70450; 93010; A9270; J2060

== ENCOUNTER 2018-12-07 15:20 | Emergency (ER) | payer MEDICARE ==
[2018-12-07] MEDS ORDERED: ONDANSETRON 4 MG TAB.RAPDIS PO ONE (16:11)
--- NOTE | 2018-12-07 16:15 | ER Document Report ---
ED Medical Screen (RME) - General Chief Complaint: Palpitations Stated Complaint: HEART PALPATIONS Time Seen by Provider: 12/07/18 16:11 Primary Care Provider: CECELIA PALACIOS MD [Primary Care Provider] - Follow up as needed Mode of Arrival: Wheelchair Information source: Patient Notes: Patient presents today with heart palpitations. Reports her heart rate went up to 180s. Has history of A. fib. Is supposed be taking anticoagulants but has not taken them recently. She reports she felt nauseated and lightheaded. Patient was evaluated here on Saturday with dizziness. Denies chest pain denies shortness of breath. No obvious distress speaking in clear voice respiratory rate even unlabored I have greeted and performed a rapid initial assessment of this patient. A comprehensive ED assessment and evaluation of the patient, analysis of test results and completion of the medical decision making process will be conducted by additional ED providers. Dictation of this chart was performed using voice recognition software; therefore, there may be some unintended grammatical errors. TRAVEL OUTSIDE OF THE [place] IN LAST 30 DAYS: No - Related Data Allergies/Adverse Reactions: codeine Adverse Reaction (Mild, Verified 12/05/18 14:03) Migraine diazepam [From Valium] Adverse Reaction (Mild, Verified 12/05/18 14:03) PALPITATIONS oxycodone [From Percocet] Adverse Reaction (Mild, Verified 12/05/18 14:03) PALPITATIONS Past Medical History - Social History Chew tobacco use (# tins/day): No Frequency of alcohol use: None Drug Abuse: None - Past Medical History Cardiac Medical History: Reports: Hx Atrial Fibrillation, Hx Hypercholesterolemia, Hx Hypertension, Hx Pulmonary Embolism - Recent and remote Denies: Hx Congestive Heart Failure, Hx Coronary Artery Disease, Hx Heart Attack Pulmonary Medical History: Denies: Hx Asthma, Hx Bronchitis, Hx COPD, Hx Pneumonia, Hx Tuberculosis Neurological Medical History: Denies: Hx Cerebrovascular Accident, Hx Seizures Endocrine Medical History: Reports: Hx Diabetes Mellitus Type 2 Renal/ Medical History: Denies: Hx Peritoneal Dialysis Musculoskeltal Medical History: Denies Hx Arthritis Psychiatric Medical History: Denies: Hx Depression Past Surgical History: Reports: Hx Cardiac Catheterization - jul 2018, Hx Thyroid Surgery - Thyroidectomy secondary to goiter, Hx Tubal Ligation - Immunizations Hx Diphtheria, Pertussis, Tetanus Vaccination: Yes Physical Exam - Vital signs Vitals: Temp Pulse Resp BP Pulse Ox 97.5 F 84 18 146/88 H 100 12/07/18 15:34 12/07/18 15:34 12/07/18 15:34 12/07/18 15:34 12/07/18 15:34 Course - Vital Signs Vital signs: Temp Pulse Resp BP Pulse Ox 97.5 F 84 18 146/88 H 100 12/07/18 15:34 12/07/18 15:34 12/07/18 15:34 12/07/18 15:34 12/07/18 15:34 Doctor's Discharge - Discharge Referrals: CECELIA PALACIOS MD [Primary Care Provider] - Follow up as needed
[2018-12-07] MEDS ORDERED: DILTIAZEM HCL 120 MG CAP.SR.24H PO ONE (16:44)
--- NOTE | 2018-12-07 16:47 | ER Document Report ---
ED General - General Chief Complaint: Palpitations Stated Complaint: HEART PALPATIONS Time Seen by Provider: 12/07/18 16:11 Primary Care Provider: CECELIA PALACIOS MD [NO LOCAL MD] - Follow up as needed Mode of Arrival: Wheelchair TRAVEL OUTSIDE OF THE [place] IN LAST 30 DAYS: No - HPI Patient complains to provider of: Palpatations Notes: Pleasant 58-year-old female presents with resolved symptoms of palpitations. Patient has history of paroxysmal atrial fibrillation takes daily sotalol and Eliquis. Patient states she was actually at the hospital visiting her friend she felt herself going to atrial fibrillation. Was dizzy at the time. Had no chest pain. Patient states his symptoms have resolved at this time. - Related Data Allergies/Adverse Reactions: codeine Adverse Reaction (Mild, Verified 12/05/18 14:03) Migraine diazepam [From Valium] Adverse Reaction (Mild, Verified 12/05/18 14:03) PALPITATIONS oxycodone [From Percocet] Adverse Reaction (Mild, Verified 12/05/18 14:03) PALPITATIONS Past Medical History - General Information source: Patient - Social History Smoking Status: Unknown if Ever Smoked Chew tobacco use (# tins/day): No Frequency of alcohol use: None Drug Abuse: None Family History: Reviewed & Not Pertinent, Hypertension, Malignancy, Other Patient has suicidal ideation: No Patient has homicidal ideation: No - Past Medical History Cardiac Medical History: Reports: Hx Atrial Fibrillation, Hx Hypercholesterolemia, Hx Hypertension, Hx Pulmonary Embolism - Recent and remote Denies: Hx Congestive Heart Failure, Hx Coronary Artery Disease, Hx Heart Att ack Pulmonary Medical History: Denies: Hx Asthma, Hx Bronchitis, Hx COPD, Hx Pneumonia, Hx Tuberculosis Neurological Medical History: Denies: Hx Cerebrovascular Accident, Hx Seizures Endocrine Medical History: Reports: Hx Diabetes Mellitus Type 2 Renal/ Medical History: Denies: Hx Peritoneal Dialysis Musculoskeletal Medical History: Denies Hx Arthritis Psychiatric Medical History: Denies: Hx Depression Past Surgical History: Reports: Hx Cardiac Catheterization - jul 2018, Hx Thyroid Surgery - Thyroidectomy secondary to goiter, Hx Tubal Ligation - Immunizations Hx Diphtheria, Pertussis, Tetanus Vaccination: Yes Review of Systems - Review of Systems Notes: REVIEW OF SYSTEMS: CONSTITUTIONAL: -fevers, -chills EENT: -eye pain, -difficulty swallowing, -nasal congestion CARDIOVASCULAR: -chest pain, -syncope. RESPIRATORY: -cough, -SOB GASTROINTESTINAL: -abdominal pain, -nausea, -vomiting, -diarrhea GENITOURINARY: -dysuria, -hematuria MUSCULOSKELETAL: -back pain, -neck pain SKIN: -rash or skin lesions. HEMATOLOGIC: -easy bruising or bleeding. LYMPHATIC: -swollen, enlarged glands. NEUROLOGICAL: -altered mental status or loss of consciousness, -headache, - neurologic symptoms PSYCHIATRIC: -anxiety, -depression. ALL OTHER SYSTEMS REVIEWED AND NEGATIVE. Physical Exam - Vital signs Vitals: Temp Pulse Resp BP Pulse Ox 97.5 F 84 18 146/88 H 100 12/07/18 15:34 12/07/18 15:34 12/07/18 15:34 12/07/18 15:34 12/07/18 15:34 - Notes Notes: PHYSICAL EXAMINATION: GENERAL: Well-appearing, well-nourished and in no acute distress. HEAD: Atraumatic, normocephalic. EYES: Pupils equal round and reactive to light, extraocular movements intact, sclera anicteric, conjunctiva are normal. ENT: nares patent, oropharynx clear without exudates. Moist mucous membranes. NECK: Normal range of motion, supple without lymphadenopathy LUNGS: Breath sounds clear to auscultation bilaterally and equal. No wheezes rales or rhonchi. HEART: Regular rate and rhythm without murmurs ABDOMEN: Soft, nontender, normoactive bowel sounds. No guarding, no rebound. No masses appreciated. EXTREMITIES: Normal range of motion, no pitting or edema. No cyanosis. NEUROLOGICAL: Cranial nerves grossly intact. Normal speech, normal gait. Normal sensory and motor exams. PSYCH: Normal mood, normal affect. SKIN: Warm, Dry, normal turgor, no rashes or lesions noted. Course - Re-evaluation Re-evalutation: 12/07/18 17:28 Ill-appearing female no acute distress presents with a possible episode of atrial fibrillation. Patient felt a great deal palpitations. They have all resolved at this time she has no symptoms to speak of. EKG is normal sinus rhythm at 74 bpm, no ischemic changes. Patient's extensive lab work-up shows normal electrolytes, normal troponin. Chest x-ray is no focal infiltrate or other acute processes. Patient given a dose of oral Cardizem, short rate control. Patient has ample blood pressure. Patient scheduled to follow-up with cardiology tomorrow. Given strict return precautions - Vital Signs Vital signs: Temp Pulse Resp BP Pulse Ox 97.5 F 84 18 149/80 H 100 12/07/18 15:34 12/07/18 15:34 12/07/18 17:14 12/07/18 17:14 12/07/18 17:14 - Laboratory Result Diagrams: 12/07/18 16:39 12/07/18 16:39 Laboratory results interpreted by me: 12/07/18 12/07/18 16:39 16:39 WBC 3.0 L MCV 79 L MCH 26.0 L RDW 15.1 H Glucose 198 H - EKG Interpretation by Ny EKG shows normal: Sinus rhythm Rate: Normal Rhythm: NSR - 74 bpm Additional EKG results interpreted by me: 12/07/18 16:47 74 bpm Discharge - Discharge Clinical Impression: Palpitation Condition: Stable Disposition: HOME, SELF-CARE Instructions: Palpitations (Irregular or Rapid Heartrate) ([facility]) Additional Instructions: Call your kaiawhina kura kaupapa maori tomorrow Referrals: CECELIA PALACIOS MD [NO LOCAL MD] - Follow up as needed
[2018-12-07 16:55] LABS: ABSOLUTE EOSINOPHILS # (AUTO) 0.1 10^3/uL (0.0-0.6); ABSOLUTE MONOCYTES (AUTO) 0.3 10^3/uL (0.1-1.4); ABSOLUTE NEUT (AUTO) 1.7 10^3/uL (1.7-8.2); BASOPHILS % (AUTO) 0.1 % (0-2); EOSINOPHILS % (AUTO) 2.8 % (0-6); HEMOGLOBIN 12.8 g/dL (12.0-15.5); LYMPHOCYTES % (AUTO) 32.7 % (13-45); MEAN CORPUSCULAR HGB CONC 32.8 g/dL (32.0-36.0); MEAN CORPUSCULAR VOLUME 79 fl (80-97); MONOCYTES % (AUTO) 9.6 % (3-13); PLATELET COUNT 171 10^3/uL (150-450); RED BLOOD COUNT 4.92 10^6/uL (3.72-5.28); RED CELL DISTRIBUTION WIDTH 15.1 % (11.5-14.0); SEGMENTED NEUTROPHILS % (AUTO) 54.8 % (42-78); TOTAL CELLS COUNTED % (AUTO) 100 %
[2018-12-07 17:00] LABS: INTERNATIONAL RATION (INR) 1.02; PROTHROMBIN TIME 13.4 SEC (11.4-15.4)
[2018-12-07 17:01] LABS: PARTIAL THROMBOPLASTIN TIME 27.9 SEC (23.5-35.8)
--- NOTE | 2018-12-07 17:10 | RADIOLOGY REPORT (SQ) ---
EXAM DESCRIPTION: CHEST 2 VIEWS COMPLETED DATE/TIME: 12/07/2018 4:56 pm REASON FOR STUDY: heart palpitations COMPARISON: Chest radiographs 12/05/2018 EXAM PARAMETERS: NUMBER OF VIEWS: two views TECHNIQUE: Digital Frontal and Lateral radiographic views of the chest acquired. RADIATION DOSE: NA LIMITATIONS: none FINDINGS: LUNGS AND PLEURA: No opacities, masses or pneumothorax. No pleural effusion. MEDIASTINUM AND HILAR STRUCTURES: No masses or contour abnormalities. HEART AND VASCULAR STRUCTURES: Unchanged cardiomediastinal contours consisting of mild cardiomegaly a nd tortuosity of the thoracic aorta. BONES: No acute findings. HARDWARE: None in the chest. OTHER: No other significant finding. IMPRESSION: NO ACUTE RADIOGRAPHIC FINDING IN THE CHEST. TECHNICAL DOCUMENTATION: JOB ID: [id number] [employer]- All Rights Reserved Reading location - IP/workstation name: [email or web address]
[2018-12-07 17:15] LABS: ALANINE AMINOTRANSFERASE 19 U/L (9-52); ALBUMIN 3.6 g/dL (3.5-5.0); ALKALINE PHOSPHATASE 50 U/L (38-126); ANION GAP 8 (5-19); ASPARTATE AMINO TRANSFERASE 22 U/L (14-36); BILIRUBIN,DIRECT 0.1 mg/dL (0.0-0.4); BILIRUBIN,TOTAL 0.3 mg/dL (0.2-1.3); BLOOD UREA NITROGEN 8 mg/dL (7-20); CALCIUM 9.1 mg/dL (8.4-10.2); CARBON DIOXIDE 29 mmol/L (22-30); CHLORIDE 101 mmol/L (98-107); CREATINE KINASE 77 U/L (30-135); GLUCOSE 198 mg/dL (75-110); POTASSIUM 3.8 mmol/L (3.6-5.0); SODIUM 138.3 mmol/L (137-145); TOTAL PROTEIN 7.6 g/dL (6.3-8.2)
[2018-12-07 18:03] VITALS: BP 162/85
--- NOTE | 2018-12-07 23:54 | EKG REPORT ---
SEVERITY:- BORDERLINE ECG - SINUS RHYTHM CONSIDER ANTERIOR INFARCT BORDERLINE T ABNORMALITIES, ANTERIOR LEADS : Confirmed by: Roger Willams 07-Dec-2018 23:53:50
== END 2018-12-07 18:12 | disposition home or self-care (01) ==
LOC: ER 15:20
DX: R00.2 Palpitations (principal); I48.91 Unspecified atrial fibrillation; E78.00 Pure hypercholesterolemia, unspecified; I10 Essential (primary) hypertension; Z88.6 Allergy status to analgesic agent; Z86.711 Personal history of pulmonary embolism
CPT/HCPCS: 93005; 99285; 36415; 82550; 84443; 85025; 85610; 85730; 80053; 84484; 71046; 93010; A9270 ×2; S0119

== ENCOUNTER → 2019-01-22 | Outpatient (CLI) | payer MEDICARE | LOC: WI 09:32 | PROVIDERS: ATTEND Physician Assistant | DX: Z12.31 Encounter for screening mammogram for malignant neoplasm of breast (principal) ==

== ENCOUNTER → 2019-02-10 | Outpatient (CLI) | payer MEDICARE ==
--- NOTE | 2019-02-12 12:49 | WOMENS IMAGING REPORT ---
EXAM DESCRIPTION: 3D DX MAMMO BILAT; U/S BREAST UNILAT LIMITED COMPLETED DATE/TIME: 02/10/2019 1:18 pm; 02/10/2019 1:55 pm REASON FOR STUDY: N64.51 R23.4 BREAST INDURATION/SKIN CHANGES; RT BREAST N64.51 INDURATION OF BREAS T R23.4 CHANGES IN SKIN TEXTURE COMPARISON: Multiple since 2014 EXAM PARAMETERS: Standard craniocaudal and mediolateral oblique views of each breast recorded using digital acquisition and breast tomosynthesis. Additional right breast 90 mediolateral tomosynthesis and mammograms Right breast ultrasound was performed in the area of skin thickening. Read with the assistance of CAD: .[employer] Version 9.2 LIMITATIONS: None. FINDINGS: RIGHT BREAST MASSES: No suspicious masses. CALCIFICATIONS: No new or suspicious calcifications. ARCHITECTURAL DISTORTION: None. DEVELOPING DENSITY: None. ASYMMETRY: None noted. OTHER: No other significant findings. LEFT BREAST MASSES: No suspicious masses. CALCIFICATIONS: No new or suspicious calcifications. ARCHITECTURAL DISTORTION: None. DEVELOPING DENSITY: None. ASYMMETRY: None noted. OTHER: No other significant finding. Right breast ultrasound: Ultrasound of the right breast was performed. Patient has a broad area of skin thickening over the 2 to 3 o'clock position. Thermal thickness measures about 4 mm in this area. No discrete cystic or s olid masses. No dilated ducts. No worrisome acoustic absorption. No findings worrisome for breast abscess. IMPRESSION: No mammographic or sonographic evidence for malignancy left breast Right breast mammograms are unremarkable. Right breast ultrasound demonstrates skin thickening, whic h is abnormal but nonspecific, and could be a sign of very early inflammatory breast cancer. Skin pu nch biopsy by surgery may be useful for followup. BREAST DENSITY: a. The breasts are almost entirely fatty. BIRAD: ASSESSMENT: 0 Incomplete: Needs additional clinical evaluation by Dermatology or surgery for skin biopsy. RECOMMENDATION: RECOMMENDED FOLLOW UP: Today's ultrasound demonstrates skin thickening over the 2 to 3 o'clock position right breast. Evaluation with Dermatology years surgery for skin biopsy should be considered. Please continue yearly bilateral screening mammography. SPECIFIC INTERVENTION/IMAGING/CONSULTATION RECOMMENDED:As above COMMUNICATION:Patient notified by letter COMMENT: The patient has been notified of the results by letter per MQSA requirements. Additional no tification policies are in place for contacting patient with suspicious or incomplete findings. Quality ID #225: The [employer] recommends an annual screening mammogram for women aged 40 years or over. This facility utilizes a reminder system to ensure that all patients receive reminder letters, and/or direct phone calls for appointments. This includes reminders for routine scr eening mammograms, diagnostic mammograms, or other Breast Imaging Interventions when appropriate. Th is patient will be placed in the appropriate reminder system. TECHNICAL DOCUMENTATION: FINDING NUMBER: (1) ASSESSMENT: (1) JOB ID: [id number] [employer]- All Rights Reserved Reading location - IP/workstation name: [email or web address]
--- NOTE | 2019-02-12 12:49 | WOMENS IMAGING REPORT ---
EXAM DESCRIPTION: 3D DX MAMMO BILAT; U/S BREAST UNILAT LIMITED COMPLETED DATE/TIME: 02/10/2019 1:18 pm; 02/10/2019 1:55 pm REASON FOR STUDY: N64.51 R23.4 BREAST INDURATION/SKIN CHANGES; RT BREAST N64.51 INDURATION OF BREAS T R23.4 CHANGES IN SKIN TEXTURE COMPARISON: Multiple since 2014 EXAM PARAMETERS: Standard craniocaudal and mediolateral oblique views of each breast recorded using digital acquisition and breast tomosynthesis. Additional right breast 90 mediolateral tomosynthesis and mammograms Right breast ultrasound was performed in the area of skin thickening. Read with the assistance of CAD: .[employer] Version 9.2 LIMITATIONS: None. FINDINGS: RIGHT BREAST MASSES: No suspicious masses. CALCIFICATIONS: No new or suspicious calcifications. ARCHITECTURAL DISTORTION: None. DEVELOPING DENSITY: None. ASYMMETRY: None noted. OTHER: No other significant findings. LEFT BREAST MASSES: No suspicious masses. CALCIFICATIONS: No new or suspicious calcifications. ARCHITECTURAL DISTORTION: None. DEVELOPING DENSITY: None. ASYMMETRY: None noted. OTHER: No other significant finding. Right breast ultrasound: Ultrasound of the right breast was performed. Patient has a broad area of skin thickening over the 2 to 3 o'clock position. Thermal thickness measures about 4 mm in this area. No discrete cystic or s olid masses. No dilated ducts. No worrisome acoustic absorption. No findings worrisome for breast abscess. IMPRESSION: No mammographic or sonographic evidence for malignancy left breast Right breast mammograms are unremarkable. Right breast ultrasound demonstrates skin thickening, whic h is abnormal but nonspecific, and could be a sign of very early inflammatory breast cancer. Skin pu nch biopsy by surgery may be useful for followup. BREAST DENSITY: a. The breasts are almost entirely fatty. BIRAD: ASSESSMENT: 0 Incomplete: Needs additional clinical evaluation by Dermatology or surgery for skin biopsy. RECOMMENDATION: RECOMMENDED FOLLOW UP: Today's ultrasound demonstrates skin thickening over the 2 to 3 o'clock position right breast. Evaluation with Dermatology years surgery for skin biopsy should be considered. Please continue yearly bilateral screening mammography. SPECIFIC INTERVENTION/IMAGING/CONSULTATION RECOMMENDED:As above COMMUNICATION:Patient notified by letter COMMENT: The patient has been notified of the results by letter per MQSA requirements. Additional no tification policies are in place for contacting patient with suspicious or incomplete findings. Quality ID #225: The [employer] recommends an annual screening mammogram for women aged 40 years or over. This facility utilizes a reminder system to ensure that all patients receive reminder letters, and/or direct phone calls for appointments. This includes reminders for routine scr eening mammograms, diagnostic mammograms, or other Breast Imaging Interventions when appropriate. Th is patient will be placed in the appropriate reminder system. TECHNICAL DOCUMENTATION: FINDING NUMBER: (1) ASSESSMENT: (1) JOB ID: [id number] [employer]- All Rights Reserved Reading location - IP/workstation name: [email or web address]
== END ==
LOC: WI 12:50
PROVIDERS: ATTEND Physician Assistant
DX: N64.51 Induration of breast (principal); R23.4 Changes in skin texture
CPT/HCPCS: 76642; 77066; G0279; 77062

== ENCOUNTER 2019-06-18 09:33 | Emergency (ER) | payer MEDICARE ==
[2019-06-18 09:39] VITALS: BP 155/85
--- NOTE | 2019-06-18 10:05 | ER Document Report ---
HPI - HPI Patient complains to provider of: Right foot pain Time Seen by Provider: 06/18/19 09:55 Onset: Other - Gnosticist Quality of pain: Achy, Throbbing Pain Level: 4 Context: This 59-year-old female with history of diabetes presents emergency department with complaints of right foot pain. Reports she got a pedicure Saturday afternoon. Reports her foot started hurting Saturday evening. She reports pain worsens when she first gets out of bed in the morning. Denies history of plantar fasciitis. Denies trauma. No other complaints such as fever vomiting diarrhea. Associated Symptoms: None Exacerbated by: Walking Relieved by: Denies Similar symptoms previously: No Recently seen / treated by doctor: No - CONSTITUTIONAL Constitutional: DENIES: Fever, Chills - REPRODUCTIVE Reproductive: DENIES: : - MUSCULOSKELETAL Musculoskeletal: REPORTS: Extremity pain - rt foot - DERM Skin Color: Normal, [place] Past Medical History - General Information source: Patient - Social History Smoking Status: Never Smoker Chew tobacco use (# tins/day): No Frequency of alcohol use: None Drug Abuse: None Lives with: Family Family History: Reviewed & Not Pertinent, Hypertension, Malignancy, Other Patient has suicidal ideation: No Patient has homicidal ideation: No - Past Medical History Cardiac Medical History: Reports: Hx Atrial Fibrillation, Hx Hypercholesterolemia, Hx Hypertension, Hx Pulmonary Embolism - Recent and remote Denies: Hx Congestive Heart Failure, Hx Coronary Artery Disease, Hx Heart Attack Pulmonary Medical History: Denies: Hx Asthma, Hx Bronchitis, Hx COPD, Hx Pneumonia, Hx Tuberculosis Neurological Medical History: Denies: Hx Cerebrovascular Accident, Hx Seizures Endocrine Medical History: Reports: Hx Diabetes Mellitus Type 2 Renal/ Medical History: Denies: Hx Peritoneal Dialysis Musculoskeletal Medical History: Denies Hx Arthritis Psychiatric Medical History: Denies: Hx Depression Past Surgical History: Reports: Hx Cardiac Catheterization - jul 2018, Hx Thyroid Surgery - Thyroidectomy secondary to goiter, Hx Tubal Ligation - Immunizations Hx Diphtheria, Pertussis, Tetanus Vaccination: Yes Vertical Provider Document - CONSTITUTIONAL Agree With Documented VS: Yes Exam Limitations: No Limitations General Appearance: WD/WN, No Apparent Distress - INFECTION CONTROL TRAVEL OUTSIDE OF THE [place] IN LAST 30 DAYS: No - HEENT HEENT: Atraumatic, Normocephalic - NECK Neck: Supple - RESPIRATORY Respiratory: No Respiratory Distress - CARDIOVASCULAR Cardiovascular: Regular Rate - MUSCULOSKELETAL/EXTREMETIES Musculoskeletal/Extremeties: HUGH MANDIE, Tender - Right plantar tenderness to palpation to the arch of patient's foot, no erythema no swelling no warmth good pedal pulse cap refill less than 3 seconds. No obvious trauma no ecchymosis. - NEURO Level of Consciousness: Awake, Alert, Appropriate Motor/Sensory: No Motor Deficit - DERM Integumentary: Warm, Dry Course - Re-evaluation Re-evalutation: 06/18/19 10:12 59-year-old female complains of plantar pain after she got a pedicure on Saturday. Right foot is benign no erythema no swelling no signs of trauma. No signs of infection. She was instructed on possible plantar fasciitis. Instructed on exercises ice ibuprofen for the pain follow-up with podiatry. She was also instructed to monitor for for signs of infection. She verbalized understanding to all instruction. - Vital Signs Vital signs: Temp Pulse Resp BP Pulse Ox 97.3 F 67 16 155/85 H 100 06/18/19 09:38 06/18/19 09:38 06/18/19 09:38 06/18/19 09:38 06/18/19 09:38 Discharge - Discharge Clinical Impression: Right foot pain, Plantar fasciitis of right foot Condition: Stable Disposition: HOME, SELF-CARE Instructions: Exercises for the Foot Muscles ([facility]), Use of [place]-[id number] Ibuprofen ([facility]), Ice Packs ([facility]), Plantar Fasciitis or Heel Spur ([facility]) Additional Instructions: *You have been evaluated for right foot pain, suspect plantar fasciitis *Do foot exercises as discussed *Rest/Ice/Elevate *Follow up with primary care provider for referral to socket puller as indicated *Take ibuprofen as indicated *Return to ED for worsening condition, changes, needs Forms: Elevated Blood Pressure Referrals: CHAVEZ DESAI PA-C [Primary Care Provider] - Follow up in 3-5 days
== END 2019-06-18 10:13 | disposition home or self-care (01) ==
LOC: ER 09:33
DX: M72.2 Plantar fascial fibromatosis (principal); M79.671 Pain in right foot; E11.9 Type 2 diabetes mellitus without complications; I10 Essential (primary) hypertension
CPT/HCPCS: 99283

== ENCOUNTER → 2020-02-24 | Outpatient (CLI) | payer MEDICARE ==
--- NOTE | 2020-02-24 13:12 | WOMENS IMAGING REPORT ---
EXAM DESCRIPTION: 3D SCREENING MAMMO BILAT IMAGES COMPLETED DATE/TIME: 02/24/2020 12:47 pm REASON FOR STUDY: Z12.31 ENCNTR SCREEN MAMMOGRAM FOR MALIGNANT NEOPLASM OF BREAST Z12.31 ENCNTR SCR EEN MAMMOGRAM FOR MALIGNANT NEOPLASM OF [place]NNIE COMPARISON: 10/18/2017 and 09/12/2016. EXAM PARAMETERS: Views: Standard craniocaudal and mediolateral oblique views of each breast recorded using digital acquisition and breast tomosynthesis. Read with the assistance of CAD. .[facility] - [employer] Version 9.2 LIMITATIONS: None. FINDINGS: No suspicious masses, suspicious calcifications or architectural distortion. No areas of c oncern. IMPRESSION: NEGATIVE MAMMOGRAM. BIRADS 1. BREAST DENSITY: a. The breasts are almost entirely fatty. BIRAD: ASSESSMENT: 1 NEGATIVE RECOMMENDATION: ROUTINE SCREENING COMMENT: The patient has been notified of the results by letter per MQSA requirements. Additional no tification policies are in place for contacting patient with suspicious or incomplete findings. Quality ID #225: The [employer] recommends an annual screening mammogram for women aged 40 years or over. This facility utilizes a reminder system to ensure that all patients receive reminder letters, and/or direct phone calls for appointments. This includes reminders for routine scr eening mammograms, diagnostic mammograms, or other Breast Imaging Interventions when appropriate. Th is patient will be placed in the appropriate reminder system. TECHNICAL DOCUMENTATION: FINDING NUMBER: (1) ASSESSMENT: (1) JOB ID: [id number] [employer]- All Rights Reserved Reading location - IP/workstation name: [email or web address]
== END ==
LOC: WI 11:25
PROVIDERS: ATTEND Nurse Practitioner
DX: Z12.31 Encounter for screening mammogram for malignant neoplasm of breast (principal)
CPT/HCPCS: 77063; 77067